=== PATIENT | female | born 1940 | race African-American/Black ===

== ENCOUNTER 2018-04-21 18:09 | Inpatient (IN) | payer MEDICARE ==
[2018-04-21 18:43] LABS: Hemoglobin 13.2 g/dL (12.0-16.0); Mean Corpuscular HGB CONC 32.5 g/dL (32.0-36.0); Mean Corpuscular Hemoglobin 37.5 pg (27.0-31.0); Mean Platelet Volume 6.8 fL (7.4-10.4); Platelet Count 266 thou/uL (130-400); RBC Distribution Width 14.6 % (11.5-14.5); Red Blood Cell (RBC) Count 3.52 mill/uL (4.20-5.40)
[2018-04-21 18:54] LABS: Acetaminophen Less than 6.0 mcg/mL (10.0-30.0); Alcohol Less than 10 mg/dL (Less than 10); Salicylate Less than 8.0 mg/dL (15.0-30.0)
[2018-04-21 18:55] LABS: ALT (SGPT) 32 U/L (8-55); AST (SGOT) 49 U/L (5-34); Albumin 4.1 g/dL (3.4-4.8); Alkaline Phosphatase 100 U/L (40-150); Anion Gap 20 mmol/L (10-20); BUN (Urea Nitrogen) 17 mg/dL (9.8-20.1); Bilirubin, Total 1.7 mg/dL (0.2-1.2); CK (CPK) 702 U/L (29-168); Calc. Creatinine Clearance 0 mL/min (70-130); Calcium 9.1 mg/dL (7.8-10.44); Carbon Dioxide 19 mmol/L (23-31); Chloride 103 mmol/L (98-107); Estimated GFR-MDRD 89; Globulin 2.8 g/dL (2.4-3.5); Glucose 120 mg/dL (83-110); Lipase 10 U/L (8-78); Potassium 4.2 mmol/L (3.5-5.1); Protein, Total 6.9 g/dL (6.0-8.3); Sodium 138 mmol/L (136-145)
[2018-04-21 18:58] LABS: Band 1 % (5-11); Lymphocytes 16 % (21-51); MDiff Complete? YES; Macrocytosis SLIGHT = 6-15 cells (100X) (0-5/hpf); Monocytes 3 % (0-10); Neutrophil 80 % (42-75); Nucleated RBC 2 % (0); PLT Morphology Comment Appears Adequate; White Blood Cell (WBC) Count 11.7 thou/uL (4.8-10.8)
[2018-04-21 18:59] LABS: Troponin I Less than 0.010 ng/mL (< 0.028)
[2018-04-21 19:05] LABS: CKMB 8.6 ng/mL (0-6.6)
[2018-04-21] MEDS ORDERED: Morphine 4 MG/ML VIAL ONE (19:14)
--- NOTE | 2018-04-21 19:16 | RAD ---
PORTABLE AP CHEST X-RAY: 04/21/2018 HISTORY: Altered mental status. Fall. COMPARISON: None available. FINDINGS: The cardiac silhouette and pulmonary vasculature are within normal limits. The lungs are hyperexpand ed but clear. Vascular calcification is seen in the thoracic aorta. The osseous structures are inta ct. IMPRESSION: No acute cardiopulmonary process. POS: [facility]
[2018-04-21] MEDS ORDERED: traMADol HCl 50 MG TAB PO PRN (19:19)
--- NOTE | 2018-04-21 19:20 | RAD ---
LEFT KNEE FOUR VIEWS: 04/21/2018 HISTORY: Trauma. The patient fell. FINDINGS: No fracture or dislocation is seen. There is suggestion of narrowing of the medial and lateral joint compartments, but the AP and oblique views were obtained with needing help in flexion, which limits adequate evaluation. No dislocation is seen. There is no evidence of a joint effusion. IMPRESSION: No acute fracture of the left knee. POS: [facility]
--- NOTE | 2018-04-21 19:21 | RAD ---
AP PELVIS: HISTORY: Fall last night. FINDINGS: The bones are demineralized. The pelvic ring is intact without evidence of fracture. The left hip h as somewhat abnormal configuration that would be very suspicious for a subcapital fracture of the hip . IMPRESSION: Findings very suspicious for a subcapital fracture of the left hip. POS: [facility]
--- NOTE | 2018-04-21 19:22 | RAD ---
LEFT HIP TWO VIEWS: 04/21/2018 HISTORY: Trauma. Fell. FINDINGS: There is a subcapital left femoral neck fracture visualized with mild impaction of the fracture fragm ents. There is no evidence of a dislocation. No other osseous abnormality. IMPRESSION: Subcapital left femoral neck fracture. POS: [facility]
[2018-04-21 19:26] LABS: PTT 29.6 SEC (22.9-36.1); Prothrombin Time 13.8 SEC (12.0-14.7)
--- NOTE | 2018-04-21 19:30 | CT ---
CT BRAIN PERFORMED WITHOUT CONTRAST ENHANCEMENT: HISTORY: Fall with head pain. FINDINGS: The ventricular and cisternal system show generalized atrophy. There are no signs of intracerebral h emorrhage or extraaxial fluid collection. The mastoid air cells are clear. There are some minimal m ucosal changes and perhaps some minimal fluid in the right maxillary sinus. IMPRESSION: No acute intracranial abnormalities. POS: [facility]
[2018-04-21] MEDS ORDERED: hydrALAZINE 20 MG/ML VIAL SLOW IVP PRN (20:26)
[2018-04-21] MEDS ORDERED: Dextrose 50% Abboject 50 ML SYRINGE SLOW IVP PRN (20:26)
[2018-04-21] MEDS ORDERED: Ondansetron HCl/PF 4 MG/2 ML Vial IVP PRN (20:26)
[2018-04-21] MEDS ORDERED: Dextrose 5% in Water 1,000 ML IV PRN (20:26)
[2018-04-21] MEDS: Famotidine/PF 20 mg/2ml Vial SLOW IVP SCH (23:04)
[2018-04-21] MEDS: Sodium Chloride 0.9% 1,000 ML IV SCH (23:04)
[2018-04-21] MEDS: Senokot S 8.6-50 MG TAB PO SCH (23:05)
[2018-04-21 23:23] LABS: Bilirubin Moderate (Negative); Blood, Urine Small (Negative); Clarity TURBID (Clear); Glucose, Urine (Dipstick) Negative (Negative); Leukocyte Negative (Negative); Nitrite Negative (Negative); Protein, Urine (Dipstick) Trace mg/dL (Neg-Trace); Specific Gravity, Urine 1.022 (1.002-1.036); Urobilinogen 0.2 mg/dL (0.2-1.0); pH, Urine 5.5 (5.0-9.0)
[2018-04-21 23:24] LABS: Bacteria/HPF None Seen HPF (None Seen); WBC/HPF 0-3 HPF (0-3)
[2018-04-21 23:25] LABS: Pathc Cast-AUWi Flag 3.77 (0-2.49)
[2018-04-21 23:32] LABS: Hyaline Casts/LPF 7-10 HYALINE CAST LPF (0-3 Hyaline)
[2018-04-21 23:35] LABS: Crystals/HPF 2+ AMORPH URATES HPF (Negative)
[2018-04-21] MEDS: traMADol HCl 50 MG TAB PO SCH (23:35)
[2018-04-21] MEDS: Ketorolac Tromethamine 30 MG/ML VIAL IVP SCH (23:37)
[2018-04-21] MEDS: Oxazepam 10 MG CAP PO SCH (23:49)
[2018-04-21] MEDS ORDERED: Acetaminophen 1,000 MG in Premix Bag 1 BAG IVPB SCH (23:59)
--- NOTE | 2018-04-22 00:33 | HP ---
DATE OF ADMISSION: 04/21/2018 ATTENDING PHYSICIAN: Dr. Jacobson. TRAUMA ACTIVATION: Not applicable. HISTORY OF PRESENT ILLNESS: Farzaneh Carranza is a 78-year-old female, who presented to [facility] status post unwitnessed fall with unknown circumstances and unknown downtime. Per patient, the last thing she remembers is having dinner and closing the windows in her house and then she woke up on the floor hours later. She remained there until her family came to find her approximately 3:30 this afternoon. She had bilateral hip pain, left greater than right, and was unable to ambulate. She was evaluated in the emergency room and found to have a left femoral neck fracture. Orthopedic Surgery was notified and Trauma Services was asked to admit. Upon my evaluation, the patient has a chief complaint of left lower extremity pain. Of note, the patient states specifically denied any recent changes to her health to include fevers, chills, nausea, vomiting, headache, dizziness, new unsteadiness, chest pain, orthopnea, lower extremity edema, palpitations. She has, however, been seeing her primary care provider for the last month or so for shortness of breath. The patient states this has remained stable and was attributed to her presumed chronic lung disease. 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 ALLERGIES: None. HOME MEDICATIONS: Include losartan 100 mg p.o. daily, raloxifene 60 mg p.o. daily, aspirin 81 mg p.o. daily, Bystolic 2.5 mg at bedtime, pravastatin 10 mg p.o. daily. PAST MEDICAL HISTORY: Significant for hypertension. PAST SURGICAL HISTORY: Hysterectomy. SOCIAL HISTORY: Patient lives alone. She ambulates independently. Endorses at least 2-3 drinks of wine and liquor daily. She is a current smoker, 1-pack per day x57 years. She denies illicit drug use. FAMILY HISTORY: Significant for father with prostate cancer. REVIEW OF SYSTEMS: Ten-point review of systems was performed and negative except as indicated in the HPI. PHYSICAL EXAMINATION: VITAL SIGNS: On evaluation, blood pressure 151/90, pulse 110, respirations 22, O2 sat 97% on room air, temperature 98.0, pain is 7/10. GENERAL: Elderly appearing female, in no acute distress, resting in bed. HEAD: Normocephalic, atraumatic. EYES: Pupils are PERRL. Extraocular movements are intact. NECK: Supple. Trachea is midline. CHEST: Atraumatic, nontender to palpation. Mildly increased work of breathing , symmetric rise. LUNGS: Sounds are diminished bilaterally with expiratory wheezing noted. CARDIOVASCULAR: Tachycardic, but no obvious murmurs, rubs or gallops. GASTROINTESTINAL: Abdomen is soft, nontender, nondistended. MUSCULOSKELETAL: She has tenderness to palpation of both hips. Bilateral upper extremities within normal limits. Pulses are 2+ bilaterally. She has no lower extremity edema. Left lower extremity is mildly shortened with limited range of motion secondary to pain. NEUROLOGIC: GCS is 15. No focal deficit is noted. LABORATORY FINDINGS: WBC 11.7, hemoglobin 13.2, hematocrit 40.6 with an elevated MCV and MCH, platelet count is 266. INR is 1.0. Sodium 138, potassium 4.2, chloride 103, carbon dioxide 19, BUN 17, creatinine 0.76, glucose 120, total bilirubin 1.7, AST 49, ALT 32, ammonia 33. CK 702, CK-MB 8.6. Troponin less than 0.010. BNP 122. Blood alcohol less than 10 and negative salicylates or acetaminophen. RADIOLOGIC FINDINGS: CT of the brain was negative for acute intracranial abnormality. X-ray of the pelvis demonstrated a left femoral neck fracture. X- ray of the left knee without fracture or dislocation. X-ray of the left hip redemonstrated the femoral neck fracture. Chest x-ray with hyperinflated lungs and very coarse interstitial markings as well as significant vascular calcifications, but was without acute traumatic injury or cardiopulmonary process. EKG with a sinus tachycardia, no evidence of ST elevation. ASSESSMENT: 1. Status post fall, unclear circumstances. 2. Left femoral neck fracture. 3. Acute traumatic pain. 4. Daily alcohol use. 5. Persistent shortness of breath in the setting of prolonged tobacco abuse history- likely undiagnosed chronic lung disease. PLAN: Admit to Trauma Services. Orthopedic Surgery will see and evaluate the patient with likely plan for operative intervention tomorrow. We will start Solu-Medrol. Medicine consult for possible syncopal workup. Admit to tele to observe for possible arrhythmia. Echocardiogram has been ordered. Perioperative pain management with p.o. and IV analgesics. Postoperative PT and OT. DVT and gastritis prophylaxis when appropriate. Plan for admission was discussed with patient and family who vocalized understanding. All questions were answered at the time of this dictation. I have discussed this patient's code status with her and she states that she is a DO NOT RESUSCITATE. Trauma attending has been notified of admission. CRISTIN
[2018-04-22] MEDS: Acetaminophen 1,000 MG in Premix Bag 1 BAG IVPB SCH ×4 (02:17→21:29)
[2018-04-22 05:30] LABS: Anion Gap 15 mmol/L (10-20); BUN (Urea Nitrogen) 20 mg/dL (9.8-20.1); Calc. Creatinine Clearance 42 mL/min (70-130); Calcium 8.4 mg/dL (7.8-10.44); Carbon Dioxide 19 mmol/L (23-31); Chloride 107 mmol/L (98-107); Estimated GFR-MDRD 85; Glucose 125 mg/dL (83-110); Magnesium 1.6 mg/dL (1.6-2.6); Phosphorus 3.7 mg/dL (2.3-4.7); Potassium 4.2 mmol/L (3.5-5.1); Sodium 137 mmol/L (136-145)
[2018-04-22] MEDS: Oxazepam 10 MG CAP PO SCH ×3 (05:38→21:29)
[2018-04-22] MEDS: traMADol HCl 50 MG TAB PO SCH ×3 (05:41→19:40)
[2018-04-22] MEDS: Ketorolac Tromethamine 30 MG/ML VIAL IVP SCH ×3 (05:44→18:15)
[2018-04-22 05:51] LABS: Band 2 % (5-11); Hemoglobin 11.2 g/dL (12.0-16.0); Hypochromia SLIGHT = 6-15 cells (100X) (0-5/hpf); Lymphocytes 3 % (21-51); MDiff Complete? YES; Mean Corpuscular HGB CONC 32.6 g/dL (32.0-36.0); Mean Corpuscular Hemoglobin 37.8 pg (27.0-31.0); Mean Platelet Volume 6.4 fL (7.4-10.4); Monocytes 1 % (0-10); Neutrophil 94 % (42-75); PLT Morphology Comment Appears Adequate; Platelet Count 185 thou/uL (130-400); RBC Distribution Width 14.4 % (11.5-14.5); Red Blood Cell (RBC) Count 2.95 mill/uL (4.20-5.40); White Blood Cell (WBC) Count 8.2 thou/uL (4.8-10.8)
--- NOTE | 2018-04-22 06:54 | CON ---
REASON FOR CONSULTATION: Medical clearance for surgery. CHIEF COMPLAINT: The patient coming in status post fall with left hip fracture. HISTORY OF PRESENT ILLNESS: This is a 78-year-old female with past medical history of hypertension, asthma, COPD, hyperlipidemia, presenting to our ED status post unwitnessed fall, mechanism of fall wa s unknown; however, patient was found to have left hip fracture based on imaging, so at this time, e has been called to provide medical clearance for the patient to undergo surgery. Per electronic me dical records, the patient has not been evaluated by melter caster in the past and due to patient's ag e, we will consider again melter caster to come and evaluate the patient. ALLERGIES: No known drug allergies. REVIEW OF SYSTEMS: Patient complained of some mild pain, otherwise as documented in the HPI. All ot her systems were reviewed and were negative. PAST MEDICAL HISTORY: Hypertension, asthma, COPD, hyperlipidemia, hysterectomy. PAST SURGICAL HISTORY: Hysterectomy. 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 Occasional drinker. Smokes a pack a day, has been smoking for 57 years. Denies illicit drug use. FAMILY HISTORY: Dad had prostate CA. PHYSICAL EXAMINATION: VITAL SIGNS: Blood pressure is 151/90, pulse 110, respiratory rate of 22, O2 sat of 97% on room air, temperature is 98. GENERAL: The patient is lying in bed comfortably, able to speak in full sentences, does not appear t o be in any distress. HEENT: Normocephalic, atraumatic. Pupils are equally round and reactive to light. Extraocular move ments are intact. No scleral icterus. CHEST: Atraumatic. LUNGS: Bilateral symmetric chest rise. Clear to auscultation bilaterally. No wheezing appreciated. CARDIOVASCULAR: Positive S1, S2. Patient is tachycardic. GASTROINTESTINAL: Soft, nontender, nondistended. MUSCULOSKELETAL: There is no hematoma noted at the left hip. EXTREMITIES: No edema noted at the lower extremity bilaterally. Patient has limited range of motion at the left lower leg due to pain; however, right lower leg, patient is able to move the leg without any difficulty. Upper extremity: 5/5 upper extremity strength. Good radial pulses. NEUROLOGIC: GCS of 15. No focal neurologic deficits noted. LABORATORY DATA: WBC 11.7, hemoglobin 13.2, hematocrit is 40, MCV of 115, RDW of 14. PT is 13.8, IN R 1.0, PTT 29.6. Sodium 138, potassium 4.2, chloride 103, bicarbonate is 19, anion gap of 20, BUN is 17, creatinine is 0.76, glucose 120. CK-MB 8.6, troponin less than 0.010. BNP is 122.9. Urinalysi s negative for leukoesterase and negative for nitrites. IMAGING: Pelvic x-ray showed subcapital fracture of the left hip. A knee x-ray negative, no acute f racture of the left knee. Hip x-ray showed subcapital left femoral neck fracture. ASSESSMENT AND PLAN: This is a 78-year-old female with hip fracture. We are being called to provide medical clearance. At this point, the patient has not been seen by melter caster in a while and base d on the patient's age of 78, will be very important for melter caster to examine the patient and give cardiac clearance. An echo has been ordered. We will follow up on echo results and we will get car diology's input on a surgical clearance. From a medical standpoint, the patient is medically optimiz ed at this time to be able to undergo surgery.
--- NOTE | 2018-04-22 07:17 | ADD-HP ---
ADDENDUM: This is an addendum to the H&P dictated by Kylie Jovel PA-C. For full details, please see her rep ort. In short, Ms. Carranza is a 78-year-old woman who fell at home. She is unsure exactly how she fell and does not remember the actual event, but was down in her home from about 9:00 p.m. until this afternoo n when a family member came to check on her. She had left hip and leg pain and was unable to stand o r get to a phone to call for help. She is unsure whether she was knocked out as she does not remembe r the event. PAST MEDICAL HISTORY: She has a past medical history of high blood pressure, high cholesterol, asthm a. PAST SURGICAL HISTORY: She has a surgical history of hysterectomy. SOCIAL HISTORY: She does drink daily and also smokes cigarettes. She lives by herself alone. Her h usband earlier this year. OUTPATIENT MEDICATIONS: Include losartan, raloxifene, aspirin, Bystolic, pravastatin. ALLERGIES: She has no known drug allergies. PHYSICAL EXAMINATION: A complete head to toe examination was performed personally by myself. The magnolia nichols felt that she might have some bruising on her cheek, but I was unable to appreciate this on exa m. Her midface is stable and her head is atraumatic. She has cool feet and no palpable pedal pulses . Does have popliteal pulses. Her left leg is elevated with the knees on pillows for comfort. IMAGING: Multiple plain films and head CT were obtained in the ER and these showed a left subcapital femoral neck fracture, but no other significant injuries. LABORATORY DATA: White count is 11.7. CK is mildly elevated at 702, BUN and creatinine are normal a t 17 and 0.76, bilirubin is mildly elevated at 1.7 and AST mildly elevated at 49. BNP is slightly hi gh at 122.9, CK-MB is elevated, but troponin is normal and TSH is normal. ASSESSMENT: Left subcapital femoral neck fracture. Orthopedics has been consulted and hopefully the patient and her family have made plans to make sure that she has around the clock supervision on dis charge from the hospital. I did suggest to her daughter who is at bedside that the patient might bijan efit from a short stay at a rehab unit given her history of falls and her general frailty and they ar e open to this option. She is receiving IV fluids, but she appears to have mild rhabdomyolysis and w e will monitor her urine output and renal function. No other injuries were identified.
--- NOTE | 2018-04-22 07:40 | CON ---
DATE OF CONSULTATION: 04/21/2018 HISTORY OF PRESENT ILLNESS: Ms. Carranza is a pleasant 78-year-old female status post fall from a ground height. She states last night. The patient walks around in her house, currently a household ambulator, does not walk outside less than 50 feet at a time, 7/10 pain. She states she has numbness, tingling in her feet. PAST MEDICAL HISTORY: Hypertension, high cholesterol, asthma, COPD. PAST SURGICAL HISTORY: Hysterectomy, three spontaneous vaginal deliveries. MEDICATIONS: Losartan, raloxifene, aspirin, Bystolic, pravastatin. ALLERGIES: No known drug allergies. SOCIAL HISTORY: She states she drinks 3-5 beers per day, 1 pack per day smoker. She lives at home. She is retired, previously worked in [employer]. She was at [place] alone. PHYSICAL EXAMINATION: VITAL SIGNS: Blood pressure 151/90, 110, respiratory rate 22, sats 99% on 2 liters, the patient has 98.8 temperature. GENERAL: Alert and oriented female, in no acute distress, resting comfortably in bed on oxygen. EXTREMITIES: The patient has shortened ER extremity with pain with ROM, NVID, no open wounds NEUROLOGY: Neurovascularly intact, brisk cap refill. SKIN: The patient has no open wounds on her hip. LABORATORY AND X-RAY FINDINGS: INR is 1, H&H 13 and 40. CK elevated. Radiographs showed left subcapital femoral neck fracture on femur and hip. IMPRESSION: Left subcapital femoral neck fracture. ASSESSMENT AND PLAN: The patient will be n.p.o. at midnight, Ancef and TXA on- call to the OR. The patient will undergo left hip hemiarthroplasty. I discussed with family the risks and benefits of surgery include pain, scar, bleeding, infection, damage to vital structures, decreased range of motion or strength, fracture above or below the implant, continued pain, need for revision to total hip. She understood the functionality the patient, she would likely best be a candidate for hemiarthroplasty. I discussed she has increased risk of mortality given her current medical condition. I discussed also that she has a risk of delirium tremens given her history of drinking. CRISTIN
[2018-04-22] MEDS ORDERED: CEFAZOLIN/Water 2 GM/20 ML SYRINGE SLOW IVP SCH ×2 (09:00→18:00)
[2018-04-22] MEDS ORDERED: Tranexamic Acid 1,000 MG in Sodium Chloride 0.9% 100 ML IVPB SCH (09:00)
[2018-04-22] MEDS: Famotidine/PF 20 mg/2ml Vial SLOW IVP SCH ×2 (09:07→21:15)
[2018-04-22] MEDS: Polyethylene Glycol 3350 17 GM Packet PO SCH (09:08)
[2018-04-22] MEDS: Senokot S 8.6-50 MG TAB PO SCH ×2 (09:08→21:29)
[2018-04-22] MEDS: Sodium Chloride 0.9% 1,000 ML IV SCH ×2 (10:25→21:14)
--- NOTE | 2018-04-22 11:28 | PRG-2 ---
DATE OF SERVICE: 04/22/2018 SUBJECTIVE: This is a 78-year-old female who presented to [facility] status post an unwitnessed fall with unknown circumstances and unknown downtime, who was found to have a left femoral neck fracture. The patient was admitted to telemetry for monitoring overnight with plans for possible surgery later this afternoon after undergoing medical clearance. She has remained hemodynamically stable and her pain has been well controlled. The patient has no complaints on exam this morning. OBJECTIVE: GENERAL: Elderly female, resting in bed, in no acute distress. VITAL SIGNS: Temperature 97.9 degrees Fahrenheit, pulse 84, respirations 16, O2 sat 98% on 2 liters nasal cannula, blood pressure 98/52. PULMONARY: Normal work of breathing with symmetric rise with significant improvement in expiratory wheezing compared to exam yesterday. CARDIOVASCULAR: Regular rate and rhythm with no obvious murmurs, rubs, or gallops. GASTROINTESTINAL: Abdomen is soft, nontender, nondistended. MUSCULOSKELETAL: The patient has tenderness to palpation of both hips and has full range of motion in bilateral upper extremity pulses are 2+ throughout. No signs of lower extremity edema, but left lower extremity is mildly shortened with limited range of motion secondary to pain from her acute fracture. NEUROLOGIC: Patient is alert and oriented x3 with no focal deficits noted. LABORATORY FINDINGS: Hemoglobin 11.2, hematocrit 34.3, MCV 116, MCH 37.8, platelet count 185. RADIOLOGIC FINDINGS: No new radiographic findings. ASSESSMENT AND PLAN: 1. Status post fall, unclear circumstances. 2. Left femoral neck fracture. 3. Acute traumatic pain. 4. History of daily alcohol use. 5. Persistent shortness of breath in the setting of prolonged tobacco abuse history suspicious for undiagnosed chronic obstructive pulmonary disease. PLAN: Pending medical clearance from Medicine team and Cardiology. The patient will likely go back for operative intervention this afternoon. We will continue IV Solu-Medrol for wheezing and shortness of breath as well as PRN and scheduled Duonebs. Echocardiogram pending for today in order to sejal patient medical clearance for surgery. We will continue perioperative pain management with p.o. and IV analgesics as needed. Postoperative PT and OT. We will begin DVT and gastrointestinal prophylaxis when appropriate. We will continue scheduled bowel regimen perioperatively and postoperatively. We will continue IV fluids normal saline at 80 mL an hour if the patient is n.p.o. pending possible operative intervention later this afternoon; however, will resume p.o. diet later today if the patient is not cleared in time to go back for surgery today. The patient has been discussed with trauma attending. CRISTIN
[2018-04-22] MEDS ORDERED: CEFAZOLIN/Water 2 GM/20 ML SYRINGE ONE (12:01)
[2018-04-22] MEDS ORDERED: Fentanyl 100 MCG/2 ML VIAL ONE (12:28)
[2018-04-22] MEDS ORDERED: Succinylcholine Chloride 20 MG/ML 10 ml SYRINGE FS ONE (12:56)
[2018-04-22] MEDS ORDERED: Ondansetron HCl/PF 4 MG/2 ML Vial ONE (12:56)
[2018-04-22] MEDS ORDERED: PROPOFOL 200 MG/20 ML VIAL ONE (12:56)
[2018-04-22] MEDS ORDERED: Glycopyrrolate 0.2 MG/ML 5 ML SYRINGE ONE (12:56)
[2018-04-22] MEDS ORDERED: PHENYLEPHRINE-NS 100 MCG/ML 10 ML SYRINGE ONE (12:56)
[2018-04-22] MEDS ORDERED: Lidocaine 1% PF 5 ML VIAL ONE (12:56)
[2018-04-22 13:30] VITALS: BMI 17.4
[2018-04-22] MEDS ORDERED: SUGAMMADEX SODIUM 200 MG/2 ML VIAL ONE (15:59)
[2018-04-22] MEDS ORDERED: Morphine Sulfate 2 MG/ML SYRINGE SLOW IVP PRN (17:04)
[2018-04-22] MEDS ORDERED: Promethazine HCl 25 MG/ML VIAL IM PRN (17:04)
[2018-04-22] MEDS ORDERED: Promethazine HCl 25 MG/ML VIAL SLOW IVP PRN (17:04)
[2018-04-22] MEDS ORDERED: Ondansetron HCl/PF 4 MG/2 ML Vial IVP PRN (17:04)
--- NOTE | 2018-04-22 19:01 | RAD ---
LEFT HIP TWO VIEWS: HISTORY: Status post surgery. Left hip fracture. COMPARISON: 04/21/2018 FINDINGS: Expected postoperative changes, compatible with a left hip arthroplasty. IMPRESSION: Left hip arthroplasty. Alignment is near anatomic. POS: [facility]
[2018-04-22] MEDS: CEFAZOLIN/Water 2 GM/20 ML SYRINGE SLOW IVP SCH (22:13)
[2018-04-23] MEDS: traMADol HCl 50 MG TAB PO SCH ×4 (01:00→18:36)
[2018-04-23] MEDS: Ketorolac Tromethamine 30 MG/ML VIAL IVP SCH ×2 (01:00→05:41)
--- NOTE | 2018-04-23 01:59 | OP ---
DATE OF SERVICE: 04/21/2018 PREOPERATIVE DIAGNOSIS: Left hip femoral neck fracture. POSTOPERATIVE DIAGNOSIS: Left hip femoral neck fracture. PROCEDURE PERFORMED: Left hemiarthroplasty. STAFF: Keo Meyers M.D. MAIL CARRIER AND CLERK: Lissa Rae PA-C. ANESTHESIA: Dr. Hinds, the patient received a general sedation. ESTIMATED BLOOD LOSS: 100 mL. TOURNIQUET TIME: None. IMPLANTS: A Proctor size 4 Accolade TMZF stem, -4 offset Unitrax sleeve and a 43 mm monopolar head. ANTIBIOTICS: Ancef 2 grams, TXA 1 gram. COMPLICATIONS: None. HISTORY OF PRESENT ILLNESS: Ms. Carranza is a 78-year-old female status post ground level fall. The patient has a history of smoking, alcoholism, and COPD. She walks about 40-50 feet a day. I discussed with the family the risks and benefits of left hip hemiarthroplasty. I discussed the risk and benefits of the surgery to include pain, scar, bleeding, infection, damage to vital structures, decreased range of motion or strength, fracture, need for further surgeries, loss of life or limb. I discussed the mortality especially with hip fractures. I discussed the patient's risk of delirium tremens postop. They understood all these risks and benefits and elected to proceed. PROCEDURE IN DETAIL: Timeout was performed to the patient's left extremity as the operative site based on sight, consents, and markings. After completion of timeout, the patient was placed in lateral position with all bony prominences well padded. A skin incision was made down to the lateral skin, down to the IT band and took down the gluteus medius down and exposed the minimus and took down the capsule and found the fracture. We cut the fracture to a half fingerbreadth a low neck cut. We excised the patient's femoral head, measured to a 44. We then broached up sequentially up to 4.0, felt to have firm fit of the four distally and proximally. I reduced the patient was based out to length , maybe slightly lengthen and overall had good alignment, good rotation, no impingement. We then removed and placed our final implants, closed the gluteus medius #2. We closed our IT band with #2 Quill, 0 Quill, 2-0 Quill, and glue. The patient will be admitted back to trauma. She will be weightbearing as tolerated. She received 24 hours antibiotics. She will follow up with her in- house in the a.m. The patient's outlook is guarded. CRISTIN
[2018-04-23] MEDS: Oxazepam 10 MG CAP PO SCH ×3 (05:41→20:01)
[2018-04-23] MEDS: CEFAZOLIN/Water 2 GM/20 ML SYRINGE SLOW IVP SCH ×2 (06:43→16:27)
[2018-04-23 07:45] LABS: #Basophils 0.2 thou/uL (0.0-0.2); #Lymphocytes 0.2 thou/uL (1.20-3.40); #Monocytes 0.9 thou/uL (0.11-0.59); #Neutrophils 12.2 thou/uL (1.40-6.50); %Basophils 1.7 % (0.0-1.0); %Eosinophils 0.3 % (0.0-10.0); %Lymphocytes 1.5 % (21.0-51.0); %Monocytes 6.7 % (0.0-10.0); %Neutrophils 89.8 % (42.0-75.0); Mean Corpuscular HGB CONC 32.1 g/dL (32.0-36.0); Mean Corpuscular Hemoglobin 38.3 pg (27.0-31.0); Mean Platelet Volume 6.6 fL (7.4-10.4); Platelet Count 197 thou/uL (130-400); RBC Distribution Width 14.3 % (11.5-14.5); Red Blood Cell (RBC) Count 2.62 mill/uL (4.20-5.40); White Blood Cell (WBC) Count 13.6 thou/uL (4.8-10.8)
[2018-04-23] MEDS ORDERED: methylPREDNISolone 4 mg Tablet PO SCH (07:45)
[2018-04-23] MEDS ORDERED: CONFIRM ALL DAY 1 DOSES ARE TIMED FOR DAY 1 FS SCH (08:15)
[2018-04-23] MEDS ORDERED: Prevnar 13-Val Conj/PF 0.5 ML SYRINGE IM ONE (09:00)
[2018-04-23] MEDS: Senokot S 8.6-50 MG TAB PO SCH ×2 (09:34→20:00)
[2018-04-23] MEDS: Ibuprofen 600 MG TAB PO SCH ×2 (09:34→18:01)
[2018-04-23] MEDS: Polyethylene Glycol 3350 17 GM Packet PO SCH (09:34)
[2018-04-23] MEDS: Aspirin 81 mg Enteric Coated Tablet PO SCH ×2 (09:34→20:00)
[2018-04-23] MEDS: Acetaminophen 500 MG TAB PO SCH ×3 (09:58→20:00)
[2018-04-23] MEDS: methylPREDNISolone 4 mg Tablet PO SCH ×3 (12:32→20:01)
--- NOTE | 2018-04-23 13:48 | PRG-2 ---
DATE OF SERVICE: 04/23/2018 SUBJECTIVE: This is a 78-year-old -Burm[place] female who presented to [facility] status post an unwitnessed fall with unknown circumstances, an unknown downtime, who was found to have a left femoral neck fracture. The patient is now postop day #1 status post left hip hemiarthroplasty with Dr. Meyers yesterday afternoon. Patient has remained hemodynamically stable overnight and her pain has been well controlled. She was receiving a DuoNeb treatment at time of exam; however, patient had no complaints. OBJECTIVE: GENERAL: Elderly -Burmese female resting in bed, receiving a DuoNeb treatment with respiratory therapy at the time of the exam. No acute distress. VITAL SIGNS: Temperature 98.5 degrees Fahrenheit, pulse 98, respirations 16, O2 saturation 96% on 2 liters nasal cannula at baseline (patient was on 8 liters via nasal cannula), blood pressure 113/76. PULMONARY: Normal work of breathing with symmetric rise. No significant expiratory wheezing noted on exam. CARDIOVASCULAR: Regular rate and rhythm with no obvious murmurs, rubs, or gallops. ABDOMEN: Soft, nontender, nondistended. MUSCULOSKELETAL: The patient has improved range of motion in both hips and full range of motion in bilateral upper extremities. Pulses are 2+ throughout. No signs of lower extremity edema. Patient has full range of motion in bilateral feet. NEUROLOGIC: Patient is alert and oriented x3 with no focal deficits noted. LABORATORY DATA: White blood count 13.6, hemoglobin 10, hematocrit 31.2, MCV 119, MCH 38.3, and platelets 197. RADIOLOGIC FINDINGS: Left hip x-ray significant for a left hip arthroplasty with alignment in her anatomic. ASSESSMENT: 1. Status post fall, unclear circumstances. 2. Left femoral neck fracture, postop day #1 status post repair. 3. Acute traumatic pain. 4. History of daily alcohol use. 5. Persistent shortness of breath in the setting of prolonged tobacco abuse history, suspicious for undiagnosed chronic obstructive pulmonary disease. PLAN: We will discontinue IV Solu-Medrol and start on p.o. steroid Dosepak and continue with p.r.n. and scheduled DuoNebs for shortness of breath. Continue with usual postoperative management including p.o. and IV analgesics as needed, postoperative PT and OT, and GI and DVT prophylaxis. Continue scheduled bowel regimen. Encourage ambulation today. Discontinue Cheatham catheter and IV fluids today and encourage increased p.o. intake as tolerated. Case management and rehab consults today in order to patient with placement in inpatient rehab following discharge. Patient has been discussed with trauma attending. CRISTIN
--- NOTE | 2018-04-23 14:30 | PQF ---
CLINICAL DOCUMENTATION IMPROVEMENT CLARIFICATION FORM: ICD-10 Updated PLEASE DO AN ADDENDUM TO THE PROGRESS NOTE WITH ANY DOCUMENTATION UPDATES OR ADDITIONS AND CARRY THROUGH TO DC SUMMARY. THANK YOU. Date: 04/23/18; 04/24/18 ATTN: Dr. Stafford Please exercise your independent, professional judgment in responding to the clarification form. Clinical indicators are provided on the bottom of this form for your review Please check appropriate box(s): [ ] Protein Calorie Malnutrition: [ ] Mild [ ] Moderate [ ] Severe [ ] Other Malnutrition [ ] Underweight without malnutrition [ ] Cachexia [ ] Other diagnosis [ x ] Unable to determine In addition, please specify: Present on Admission (POA): [ ] Yes [ ] No [ x ] Unable to determine CLINICAL INDICATORS - SIGNS / SYMPTOMS / LABS DATA SYSTEMS MANAGER ASSESSMENT 04/22: BMI 17.4 PT OBSERVED WITH LITTLE VISCERAL FAT W/ VISIBLE RIBS & MODERATE TEMPORAL MUSCLE WASTING NUTRITION DX: MALNUTRITION R/T COPD W/ RECENT OF SPOUSE REPORT OF DECREASED PO INTAKE X3-4 MONTHS ACCOUNT OFFICER INDICATIVE OF MODERATE MALNUTRITION IN THE SETTING OF CHRONIC DISEASE W/ SOCIAL CIRCUMSTANCES RISKS: H&P 04/21: HYPERTENSION. DAILY ALCOHOL USE. L SUBCAPITAL FEMORAL NECK FRACTURE. MILD RHABDOMYOLYSIS CONSULT: HX ASTHMA, COPD. TREATMENT: DATA SYSTEMS MANAGER ASSESSMENT 04/22: TRIGGERED FOR A LOW BMI Moderate Malnutrition (in acute illness) Energy Intake: <75% of estimated energy requirement for > 7 days Weight Loss: 1-2%/1 week; 5%/ 1 month; 7.5%/3 months Other: mild body fat loss; mild muscle mass loss; mild fluid accumulation; Severe Malnutrition (in acute illness) Energy Intake: < 50% of estimated energy requirement for > 5 days Weight Loss: >1-2%/1 week; >5%/1 month; >7.5%/3 months Other: moderate body fat loss; moderate muscle mass loss; moderate- severe fluid accumulation; measurably reduced mirror maker strength Moderate Malnutrition (in chronic illness) Energy Intake: <75% of estimated energy requirement for >1 month Weight Loss: 5%/1 month; 7.5%/3 months; 10%/6 months; 20%/1 year Other: mild body fat loss; mild muscle mass loss; mild fluid accumulation Severe Malnutrition (in chronic illness) Energy Intake: <75% of estimated energy requirement for >1 month Weight Loss: >5%/1 month; >7.5%/3 months; >10%/6 months; >20%/1 year Other: severe body fat loss; severe muscle mass loss; severe fluid accumulation; measurably reduced mirror maker strength Thank you, Michelle (This form is maintained as a part of the permanent medical record) 2015 [employer], [place]. All Rights Reserved Michelle Calle RN, BSN [email or web address] Office: [phone] [facility] CENTERRuy
--- NOTE | 2018-04-23 15:55 | PDOC.PN ---
- Subjective Encounter Start Date: 04/23/18 Encounter Start Time: 15:45 Subjective: f/u s/p L femoral neck fx and THR on 04/22/18. Remains stable postop -: and tolerating po intake. O2 currently 2L/min NC - Objective Resuscitation Status: Resuscitation Status DNR:Do Not Resuscitate MAR Reviewed: Yes Vital Signs & Weight: Vital Signs (12 hours) Temp Pulse Resp BP BP BP BP 04/23/18 12:29 92 16 04/23/18 12:00 98.1 F 92 16 97/63 04/23/18 09:58 115/66 116/77 04/23/18 09:30 04/23/18 07:10 98.1 F 96 18 104/65 04/23/18 06:40 04/23/18 06:33 98 16 04/23/18 04:00 98.5 F 94 16 113/76 Pulse Ox 04/23/18 12:29 98 04/23/18 12:00 100 04/23/18 09:58 04/23/18 09:30 96 04/23/18 07:10 98 04/23/18 06:40 96 04/23/18 06:33 96 04/23/18 04:00 98 Weight Admit Weight 99 lb Weight 98 lb 3.2 oz I&O: 04/22/18 04/23/18 04/24/18 06:59 06:59 06:59 Intake Total 990 1343.0 Output Total 125 350 200 Balance 865 993.0 -200 Result Diagrams: 04/23/18 07:20 04/22/18 04:28 Additional Labs: Microbiology 04/21/18 18:56 Venous blood - Right Hand Blood Culture - Preliminary NO GROWTH AT 48 HOURS 04/21/18 18:37 Venous blood - Left Hand Blood Culture - Preliminary NO GROWTH AT 48 HOURS Laboratory Tests 04/21/18 04/21/18 04/22/18 18:14 18:38 04:28 WBC 8.2 Hgb 11.2 L Ammonia 33 TSH 3rd Generation 1.4626 Radiology Reviewed by me: Yes (2D echo - EF 55%, diast dysfxn, mild-mod TR) Phys Exam - Physical Examination Constitutional: NAD HEENT: PERRLA, sclera anicteric, oral pharynx no lesions Neck: no nodes, no JVD, supple, full ROM Respiratory: no wheezing, no rales, no rhonchi, clear to auscultation bilateral S1, S2 Cardiovascular: RRR, no significant murmur, no rub, gallop Gastrointestinal: soft, non-tender, no distention, positive bowel sounds L hip with surgical dressing in place, + edema Musculoskeletal: pulses present Neurological: moves all 4 limbs Psychiatric: normal affect Skin: no rash, normal turgor, cap refill <2 seconds Dx/Plan (1) COPD (chronic obstructive pulmonary disease) Status: Chronic Comment: Continue Duonebs, Methylprednisolone, O2 support (2) Fall Code(s): W19.XXXA - UNSPECIFIED FALL, INITIAL ENCOUNTER Status: Acute Comment: PT evaluation, likely will need SNF/inpt rehab (3) Closed left femoral fracture Code(s): S72.92XA - UNSP FRACTURE OF LEFT FEMUR, INIT ENCNTR FOR CLOSED FRACTURE Status: Acute Comment: s/p L THR POD #1, pain control, DVT ppx (4) HTN (hypertension) Code(s): I10 - ESSENTIAL (PRIMARY) HYPERTENSION Status: Chronic Qualifiers: Hypertension type: essential hypertension Qualified Code(s): I10 - Essential (primary) hypertension Comment: Continue home BP regimen and monitor BP trend - Plan PT/OT, social science instructor, respiratory therapy, DVT proph w/SCDs Stable currently -: Pulmonary supportive mgmt -: Wean steroids -: PT for evaluation -: AM lab: BMP, CBC * .
[2018-04-24] MEDS: traMADol HCl 50 MG TAB PO SCH ×4 (00:11→17:53)
[2018-04-24] MEDS: Ibuprofen 600 MG TAB PO SCH ×3 (01:13→17:53)
[2018-04-24] MEDS: Acetaminophen 500 MG TAB PO SCH ×4 (03:28→21:48)
[2018-04-24 05:26] LABS: Anion Gap 11 mmol/L (10-20); BUN (Urea Nitrogen) 29 mg/dL (9.8-20.1); Calc. Creatinine Clearance 22 mL/min (70-130); Calcium 8.8 mg/dL (7.8-10.44); Carbon Dioxide 20 mmol/L (23-31); Chloride 110 mmol/L (98-107); Estimated GFR-MDRD 40; Glucose 116 mg/dL (83-110); Magnesium 1.7 mg/dL (1.6-2.6); Phosphorus 3.9 mg/dL (2.3-4.7); Potassium 4.4 mmol/L (3.5-5.1); Sodium 137 mmol/L (136-145)
[2018-04-24 05:37] LABS: Hemoglobin 10.2 g/dL (12.0-16.0); Hypochromia SLIGHT = 6-15 cells (100X) (0-5/hpf); Lymphocytes 2 % (21-51); MDiff Complete? YES; Mean Corpuscular HGB CONC 32.6 g/dL (32.0-36.0); Mean Corpuscular Hemoglobin 39.3 pg (27.0-31.0); Mean Platelet Volume 6.7 fL (7.4-10.4); Monocytes 5 % (0-10); Neutrophil 93 % (42-75); PLT Morphology Comment Appears Adequate; Platelet Count 185 thou/uL (130-400); RBC Distribution Width 14.6 % (11.5-14.5); Red Blood Cell (RBC) Count 2.61 mill/uL (4.20-5.40); White Blood Cell (WBC) Count 10.2 thou/uL (4.8-10.8)
[2018-04-24] MEDS: Oxazepam 10 MG CAP PO SCH ×3 (06:00→21:55)
[2018-04-24] MEDS: Sodium Chloride 0.9% 500 ML IV SCH ×2 (08:38→09:02)
[2018-04-24] MEDS: Senokot S 8.6-50 MG TAB PO SCH ×2 (08:41→21:50)
[2018-04-24] MEDS: Aspirin 81 mg Enteric Coated Tablet PO SCH ×2 (08:41→21:48)
[2018-04-24] MEDS: Polyethylene Glycol 3350 17 GM Packet PO SCH (08:41)
[2018-04-24] MEDS: methylPREDNISolone 4 mg Tablet PO SCH ×3 (08:45→17:55)
[2018-04-24] MEDS ORDERED: Magnesium 2 GM/NS 0.9% 100 ML 2 GM in Premix Bag 1 BAG IVPB SCH (11:45)
--- NOTE | 2018-04-24 12:21 | PRG-2 ---
DATE OF SERVICE: 04/24/2018 SUBJECTIVE: This is a 78-year-old -Turkmen female, who presented to [facility] status post an unwitnessed fall with unknown circumstances and unknown downtime, who was found to have a left femoral neck fracture on x-ray. The patient is now postop day #2 status post left hip hemiarthroplasty with Dr. Meyers. Patient's heart rate increased to a rate of 106 overnight and she is still requiring 2 liters nasal cannula to maintain sats greater than 92%. The patient had no complaints this morning and daughter reports she did well working with physical therapy yesterday. Patient is passing gas but has yet to have a bowel movement. Had poor p.o. intake yesterday secondary to decreased appetite. Denies any nausea or vomiting. OBJECTIVE: GENERAL: Elderly -Turkmen female resting in bed in no acute distress. VITAL SIGNS: Temperature 98.6 degrees Fahrenheit, pulse 100, respirations 18, and O2 sats 99% on 2 liters nasal cannula, blood pressure 121/73. PULMONARY: Normal work of breathing with symmetric rise. No significant expiratory wheezing noted on exam. CARDIOVASCULAR: Regular rate and rhythm with no obvious murmurs, rubs or gallops. ABDOMEN: Soft, nontender, nondistended. MUSCULOSKELETAL: The patient has improved range of motion in both hips and full range of motion of bilateral upper extremities. No signs of lower extremity edema. Full range of motion in both feet. NEUROLOGIC: Patient is alert and oriented to person. No focal deficits noted. Answering questions appropriately, just not necessarily with the correct answer at all times. LABORATORY DATA: Sodium 137, potassium 4.4, chloride 110, bicarbonate 20, BUN 29, creatinine 1.53, blood glucose 116, calcium 8.8, phosphorus 3.9, magnesium 1.7. RADIOLOGIC FINDINGS: No new radiologic images for review. ASSESSMENT AND PLAN: 1. Status post fall, unclear circumstances. 2. Left femoral neck fracture, postop day #2, status post repair. 3. Acute traumatic pain. 4. History of daily alcohol use. 5. Persistent shortness of breath in the setting of prolonged tobacco abuse history suspicious for undiagnosed chronic obstructive pulmonary disease. 6. Hypertension. PLAN: We will continue p.o. steroid Dosepak as well as p.r.n. scheduled DuoNebs. We will attempt to wean from nasal cannula as tolerated by the patient while maintaining O2 sats greater than 92%. We will continue with usual postoperative management including p.o. Tylenol and ibuprofen only. Discontinued IV ketorolac yesterday. Likely what contributed to the patient's slight HAZEL seen this morning. We will continue with a scheduled bowel regimen with the addition of lactulose this morning. This patient has yet to have a bowel movement. We will encourage ambulation today and we will continue working with physical therapy. We will give a half liter bolus of NS to address the patient's acute kidney injury. Case management on board and working towards rehab placement. Patient has been discussed with the trauma attending. CRISTIN
--- NOTE | 2018-04-24 16:38 | PDOC.PN ---
- Subjective Encounter Start Date: 04/24/18 Encounter Start Time: 16:35 Subjective: f/u s/p L NICKIE after fall and fx POD #2. Some pain with movement -: but overall doing ok. - Objective Resuscitation Status: Resuscitation Status DNR:Do Not Resuscitate MAR Reviewed: Yes Vital Signs & Weight: Vital Signs (12 hours) Temp Pulse Resp BP Pulse Ox 04/24/18 16:00 97.9 F 109 H 20 99/47 L 94 L 04/24/18 11:56 97.6 F 99 16 111/71 98 04/24/18 11:29 95 16 100 04/24/18 08:41 98.0 F 95 14 111/72 100 04/24/18 08:40 100 04/24/18 08:00 98.0 F 95 14 111/72 100 04/24/18 07:22 101 H 18 98 Weight Admit Weight 99 lb Weight 98 lb 3.2 oz I&O: 04/23/18 04/24/18 04/25/18 06:59 06:59 06:59 Intake Total 1343.0 440 Output Total 350 200 Balance 993.0 240 Result Diagrams: 04/24/18 04:42 04/24/18 04:42 Additional Labs: Microbiology 04/21/18 18:56 Venous blood - Right Hand Blood Culture - Preliminary NO GROWTH AT 48 HOURS 04/21/18 18:37 Venous blood - Left Hand Blood Culture - Preliminary NO GROWTH AT 48 HOURS Laboratory Tests 04/21/18 04/21/18 04/22/18 18:14 18:38 04:28 WBC Hgb Creatinine 0.79 Magnesium 1.6 Ammonia 33 TSH 3rd Generation 1.4626 04/22/18 04/23/18 04/24/18 04:28 07:20 04:42 WBC 8.2 13.6 H Hgb 11.2 L Creatinine Magnesium 1.7 Ammonia TSH 3rd Generation Phys Exam - Physical Examination Constitutional: NAD HEENT: PERRLA, sclera anicteric, oral pharynx no lesions Neck: no nodes, no JVD, supple, full ROM S1, S2 Cardiovascular: RRR, no significant murmur, no rub, gallop Gastrointestinal: soft, non-tender, no distention, positive bowel sounds L hip with edema and surgical dressing in place Musculoskeletal: pulses present Neurological: normal sensation, moves all 4 limbs Skin: normal turgor, cap refill <2 seconds Dx/Plan (1) HAZEL (acute kidney injury) Code(s): N17.9 - ACUTE KIDNEY FAILURE, UNSPECIFIED Status: Acute Comment: Mild HAZEL likely due to volume depletion, IVF's given today, encourage increased free-H2O intake, avoid nephrotoxic meds and limit contrast exposure (2) COPD (chronic obstructive pulmonary disease) Status: Chronic Comment: Continue Duonebs, Methylprednisolone, O2 support prn (3) Fall Code(s): W19.XXXA - UNSPECIFIED FALL, INITIAL ENCOUNTER Status: Acute Comment: PT evaluation, likely will need SNF/inpt rehab (4) Closed left femoral fracture Code(s): S72.92XA - UNSP FRACTURE OF LEFT FEMUR, INIT ENCNTR FOR CLOSED FRACTURE Status: Acute Comment: s/p L THR POD #2, pain control, DVT ppx (5) HTN (hypertension) Code(s): I10 - ESSENTIAL (PRIMARY) HYPERTENSION Status: Chronic Qualifiers: Hypertension type: essential hypertension Qualified Code(s): I10 - Essential (primary) hypertension Comment: Continue home BP regimen and monitor BP trend - Plan PT/OT, marriage and family social worker, respiratory therapy, DVT proph w/SCDs stable overall -: continue general pulm support -: Wean Methylprednisolone -: Increase free-H2O intake -: AM lab: BMP * SNF options pending
[2018-04-24] MEDS ORDERED: methylPREDNISolone 4 mg Tablet PO SCH (21:00)
[2018-04-25] MEDS: traMADol HCl 50 MG TAB PO SCH ×4 (00:34→17:49)
[2018-04-25] MEDS: Ibuprofen 600 MG TAB PO SCH ×3 (01:47→17:49)
[2018-04-25] MEDS: Acetaminophen 500 MG TAB PO SCH ×4 (02:10→21:04)
[2018-04-25] MEDS: Oxazepam 10 MG CAP PO SCH ×3 (04:42→16:50)
[2018-04-25 06:21] LABS: Anion Gap 10 mmol/L (10-20); BUN (Urea Nitrogen) 30 mg/dL (9.8-20.1); Calc. Creatinine Clearance 39 mL/min (70-130); Calcium 9.1 mg/dL (7.8-10.44); Carbon Dioxide 22 mmol/L (23-31); Chloride 113 mmol/L (98-107); Estimated GFR-MDRD 77; Glucose 104 mg/dL (83-110); Magnesium 2.5 mg/dL (1.6-2.6); Phosphorus 2.6 mg/dL (2.3-4.7); Potassium 4.4 mmol/L (3.5-5.1); Sodium 141 mmol/L (136-145)
[2018-04-25 06:56] LABS: Hemoglobin 10.1 g/dL (12.0-16.0); Mean Corpuscular HGB CONC 31.7 g/dL (32.0-36.0); Mean Corpuscular Hemoglobin 38.4 pg (27.0-31.0); Mean Platelet Volume 6.6 fL (7.4-10.4); Platelet Count 177 thou/uL (130-400); RBC Distribution Width 14.6 % (11.5-14.5); Red Blood Cell (RBC) Count 2.64 mill/uL (4.20-5.40); White Blood Cell (WBC) Count 8.7 thou/uL (4.8-10.8)
[2018-04-25 07:46] LABS: Band 3 % (5-11); Lymphocytes 11 % (21-51); MDiff Complete? YES; Monocytes 2 % (0-10); Neutrophil 84 % (42-75); Polychromasia SLIGHT = 2-3 cells (100X) (0-2/hpf)
[2018-04-25] MEDS: methylPREDNISolone 4 mg Tablet PO SCH ×4 (08:48→21:05)
[2018-04-25] MEDS: Folic Acid 1 MG TAB PO SCH (08:48)
[2018-04-25] MEDS: Senokot S 8.6-50 MG TAB PO SCH ×2 (08:48→21:05)
[2018-04-25] MEDS: Aspirin 81 mg Enteric Coated Tablet PO SCH ×2 (08:48→21:04)
[2018-04-25] MEDS: Polyethylene Glycol 3350 17 GM Packet PO SCH (08:49)
[2018-04-25] MEDS ORDERED: Magnesium Citrate 300 ML BOT PO SCH (09:30)
--- NOTE | 2018-04-25 12:00 | RAD ---
PORTABLE CHEST: 04/25/2018 PROVIDED CLINICAL HISTORY: Hypoxia. COMPARISON: 04/21/2018 FINDINGS: The cardiac and mediastinal silhouette are unchanged in appearance. Vascular calcification involves the aortic arch. Emphysematous changes are redemonstrated. Blunting of the right costophrenic angle is now present, suggesting right pleural effusion. No evidence for pneumothorax or focal consolidat ion. IMPRESSION: Development of right pleural effusion. POS: REMBERTO
[2018-04-25 12:22] LABS: Anion Gap 9 mmol/L (10-20); BUN (Urea Nitrogen) 29 mg/dL (9.8-20.1); Calc. Creatinine Clearance 41 mL/min (70-130); Calcium 9.3 mg/dL (7.8-10.44); Carbon Dioxide 25 mmol/L (23-31); Chloride 112 mmol/L (98-107); Estimated GFR-MDRD 83; Glucose 133 mg/dL (83-110); Potassium 4.3 mmol/L (3.5-5.1); Sodium 142 mmol/L (136-145)
[2018-04-25 15:05] LABS: Actual Bicarbonate (HCO3a) 26.5 mEq/L (22-28); Base Excess (BEa) -0.2 mEq/L (-2.0 to +3.0); CO2 Tension 53.1 mmHg (35.0-45.0); Calcium, Ionized 1.32 mmol/L (1.12-1.30); Carboxyhemoglobin (COHb) 1.5 gm% (0.0-3.0); Hemoglobin (Hb) 10.6 g/dL (12.0-16.0); O2 Tension (PaO2) 75.6 mmHg (> 70.0); Potassium - ABG Lab 3.96 mmol/L (3.70-5.30); pH, Arterial 7.32 (7.35-7.45)
[2018-04-25 15:06] LABS: Puncture Site RBA
[2018-04-25] MEDS ORDERED: Furosemide 40 MG/4 ML VIAL ONE (17:06)
[2018-04-25] MEDS ORDERED: Furosemide 40 MG/4 ML VIAL SLOW IVP SCH (17:15)
[2018-04-25] MEDS: Budesonide 0.5 MG/2 ML NEB INH SCH (18:25)
[2018-04-26] MEDS: traMADol HCl 50 MG TAB PO SCH ×4 (00:03→17:21)
[2018-04-26] MEDS: Ibuprofen 600 MG TAB PO SCH (00:03)
[2018-04-26] MEDS: Oxazepam 10 MG CAP PO SCH (03:16)
[2018-04-26] MEDS: Acetaminophen 500 MG TAB PO SCH ×4 (03:16→21:29)
[2018-04-26 03:57] LABS: Actual Bicarbonate (HCO3v) 33 mEq/L (22-28); Calcium, Ionized 1.17 mmol/L (1.16-1.32); Chloride (ABG LAB) 107 mmol/L (98-106); Hemoglobin (Hb) 10.8 g/dL (11.7-16.1); Potassium - ABG Lab 3.42 mmol/L (3.70-5.30); Sodium 143.8 mmol/L (133-146); pH (venous) 7.44 (7.32-7.43)
[2018-04-26 05:15] LABS: Anion Gap 8 mmol/L (10-20); BUN (Urea Nitrogen) 21 mg/dL (9.8-20.1); Calc. Creatinine Clearance 52 mL/min (70-130); Carbon Dioxide 33 mmol/L (23-31); Chloride 107 mmol/L (98-107); Estimated GFR-MDRD Greater than 90; Glucose 103 mg/dL (83-110); Magnesium 1.8 mg/dL (1.6-2.6); Potassium 3.4 mmol/L (3.5-5.1); Sodium 145 mmol/L (136-145)
[2018-04-26] MEDS: Budesonide 0.5 MG/2 ML NEB INH SCH ×2 (05:53→20:06)
[2018-04-26 06:06] LABS: Band 1 % (5-11); Hemoglobin 10.1 g/dL (12.0-16.0); Lymphocytes 14 % (21-51); MDiff Complete? YES; Macrocytosis SLIGHT = 6-15 cells (100X) (0-5/hpf); Mean Corpuscular HGB CONC 32.5 g/dL (32.0-36.0); Mean Corpuscular Hemoglobin 38.7 pg (27.0-31.0); Mean Platelet Volume 6.2 fL (7.4-10.4); Monocytes 9 % (0-10); Neutrophil 76 % (42-75); PLT Morphology Comment Appears Adequate; Platelet Count 189 thou/uL (130-400); RBC Distribution Width 14.5 % (11.5-14.5); Red Blood Cell (RBC) Count 2.62 mill/uL (4.20-5.40); Target Cells SLIGHT = 2-5 cells (100X) (0-1/hpf); White Blood Cell (WBC) Count 8.6 thou/uL (4.8-10.8)
--- NOTE | 2018-04-26 08:17 | PRG ---
DATE OF SERVICE: 04/25/[address] Simone Foster. SUBJECTIVE: Ms. Carranza is postop day 3 status post open reduction internal fixation left femoral neck with hemiarthroplasty with Dr. Meyers. The patient is in the surgical shelton. She was noted to have somewhat waxing and waning mental status, does not want to participate well and appears generally weak. The patient seems to be in slight respiratory distress, mild tachycardia, is now requiring 1 liter oxygen nasal cannula today. Chest x-ray new demonstrates a right pleural effusion. Echocardiogram reviewed, shows an EF of 55%, no diastolic dysfunction is record and no pericardial effusion. The patient has a 10-pound weight gain since arrival. On arrival, the patient does not complain of pain, but she seems somewhat withdrawn and in slight respiratory distress with accessory muscle usage. OBJECTIVE DATA: VITAL SIGNS: Blood pressure 127/74, heart rate is 108, respiratory rate 20, she is 96% on 1 liter nasal cannula and temperature is 97.7. GENERAL: A 78-year-old female sitting up in the chair, slight respiratory distress. HEENT: Normocephalic, atraumatic. Does have some JVD appreciated. NECK: Trachea is midline. RESPIRATORY: Equal rise and fall. Bilateral breath sounds are equal. Low air movement. Low lung volumes. Diminished bibasilar with trace crackles and expiratory wheezes appreciated. CARDIOVASCULAR: Tachycardia, regular rhythm. No edema is appreciated and strong pulses in all extremities. ABDOMEN: Soft and nontender. The patient has some pain to the left hip. Dressing dry and in place. PSYCHIATRIC: Withdrawn. SKIN: Normal for ethnicity, dry and warm. LABORATORY DATA: For today, white blood cell count 8.7, hemoglobin and hematocrit 10.1 and 31.9 respectively, platelets are 177,000. Chemistry shows a sodium of 142, potassium is 4.3, chloride is 112, CO2 is 25, BUN is 29 and creatinine 0.81, which has improved from yesterday of 1.53 after fluid boluses. Glucose of 133 and a BNP of 660. ASSESSMENT: 1. Status post fall and left arthroplasty, postop day number 3. 2. Acute traumatic pain. 3. Daily alcohol use. 4. Chronic obstructive pulmonary disease with acute exacerbation. 5. Concern for volume overload. 6. Concern for acute respiratory failure. 7. Altered mental status. CT head was negative for acute etiology yesterday. PLAN: 1. Continue with pain control as tolerated. 2. Speech therapy has evaluated, not swallowing well. Concern for hypercapnic narcosis. 3. Obtain ABG. Will likely need BiPAP 4. Likely will need diuresis. 5. Increase DuoNeb q.4. 6. Budesonide 0.5 mg b.i.d. 7. Continue steroids. Okay with oral for now. May need IV. 8. Reduce serax to b.i.d. dosing. 9. Oxygen to maintain SpO2 greater than 92%. 10. I have coordinated care with RT and a bedside RN. 11. Check BNP. 12. Morning labs. 13. Diet: N.p.o. except for meds tonight per speech therapy evaluation. They will reassess tomorrow. 14. Activity: Up with assistance only. 15. DNR. 16. Access: Peripheral IVs. Can place Cheatham catheter for retention, multiple times requiring in and out. DISPOSITION: Surgical shelton will keep a close eye. May need transfer to IMCU if does not improve respiratory belcher. There is no family at the bedside to update. I have coordinated care with the surgical service. I reviewed the notes from other services and the patient was seen with Dr. Foster. CRISTIN
[2018-04-26] MEDS: methylPREDNISolone 4 mg Tablet PO SCH ×3 (08:31→17:21)
--- NOTE | 2018-04-26 09:46 | PQF ---
CLINICAL DOCUMENTATION IMPROVEMENT CLARIFICATION FORM: ICD-10 Updated PLEASE DO AN ADDENDUM TO THE PROGRESS NOTE WITH ANY DOCUMENTATION UPDATES OR ADDITIONS AND CARRY THROUGH TO DC SUMMARY. THANK YOU. DATE: 04/26/18 ATTN: Dr. Foster Please exercise your independent, professional judgment in responding to the clarification form. Clinical indicators are provided on the bottom of this form for your review Please check appropriate box(s): [ ] Acute Respiratory Failure: [ ] with Hypoxia [ ] with Hypercapnia [ x ] Acute On Chronic Respiratory Failure: [ x] with Hypoxia [ ] with Hypercapnia [ ] Acute Respiratory Failure due to: [ ] Chronic Respiratory Failure only [ ] with Hypoxia [ ] with Hypercapnia [ ] Other diagnosis [ ] Unable to determine In addition, please specify: Present on Admission (POA): [ x ] Yes [ ] No [ ] Unable to determine For continuity of documentation, please document condition throughout progress notes and discharge summary. Thank You. CLINICAL INDICATORS - SIGNS / SYMPTOMS / LABS NURSING NOTE 04/24: RA O2 WAS CHECKED & WAS 68%. O2 PLACED AT 3L NC & WENT UP TO 100%. TURNED DOWN TO 1.5L & MAINTAINING AT 100% PN 04/24: SHE IS STILL REQUIRING 2 LITERS NC TO MAINTAIN SATS GREATER THAN 92% PN 04/25: PT HAS A 10-POUND WEIGHT GAIN SINCE ARRIVAL. SEEMS SOMEWHAT WITHDRAWN & IN SLIGHT RESPIRATORY DISTRESS WITH ACCESSORY MUSCLE USAGE CONCERN FOR VOLUME OVERLOAD CONCERN FOR ACUTE RESPIRATORY FAILURE ABG 04/25: PH 7.32 PCO2 53.1 PO2 75.6 RISKS: PN 04/23: CHRONIC COPD. HTN PN 04/25: S/P L ARTHROPLASTY; DAILY ALCOHOL USE. COPD WITH EXACERBATION TREATMENT: CPOE 04/21: RESP: O2 TO KEEP SATS 92% ORDER 04/25: RESP: VISION BIPAP HS CPOE 04/25: DUONEB Q4 HR Thank you, Michelle (This form is maintained as a part of the permanent medical record) 2014 [employer] All Rights Reserved Michelle Calle, RN, KAYLA [email or web address] Office: [phone] [facility]OSPITALRuy
[2018-04-26] MEDS ORDERED: Furosemide 20 MG/2 ML VIAL SLOW IVP SCH (10:30)
[2018-04-26] MEDS: Aspirin 81 mg Enteric Coated Tablet PO SCH ×2 (11:23→21:29)
[2018-04-26] MEDS: Folic Acid 1 MG TAB PO SCH (11:24)
[2018-04-26] MEDS: Senokot S 8.6-50 MG TAB PO SCH ×2 (11:24→21:29)
[2018-04-26] MEDS: Polyethylene Glycol 3350 17 GM Packet PO SCH (11:24)
[2018-04-26] MEDS ORDERED: Potassium Chloride 20 MEQ TAB PO SCH (16:00)
[2018-04-26] MEDS ORDERED: Magnesium Citrate 300 ML BOT PO SCH (16:00)
--- NOTE | 2018-04-26 18:38 | PRG ---
DATE OF SERVICE: 04/26/2018 SUBJECTIVE: Ms. Carranza is a pleasant 78-year-old female who is postop day #4 status post hemiarthropl asty of left femoral neck fracture. Yesterday, patient was diuresed after being found to demonstrate signs and symptoms of congestive heart failure. Breathing appears improved today. She is no longer requiring BiPAP. Oxygen requirements are improved and patient is able to vocalize. Pain seems well controlled. She is sitting out of bed in a chair. OBJECTIVE: VITAL SIGNS: Temperature 98.6, pulse 107, respiration rate 18, O2 sats 2 liters nasal cannula, blood pressure 132/74. GENERAL: Elderly appearing female in no acute distress, sitting in a chair, out of bed. PULMONARY: Normal work of breathing. Symmetric rise. CARDIOVASCULAR: Regular rate and rhythm. GASTROINTESTINAL: Abdomen is soft, nontender, nondistended. MUSCULOSKELETAL: Moves all extremities x4. NEUROLOGIC: No focal deficit is noted. LABORATORY DATA AND IMAGING DATA: WBC 8.6, hemoglobin 10.1, hematocrit 31, platelet count 189. Sodi um 145, potassium 3.4, chloride 107, carbon dioxide 33, BUN 21, creatinine 0.64, glucose 103. BNP 66 0. Chest x-ray dated 04/25/2018 demonstrated interval development of right pleural effusion. ASSESSMENT: 1. Status post mechanical fall. 2. Left femoral neck fracture, postop day #4 status post hemiarthroplasty. 3. Acute traumatic pain. 4. Acute hypoxic and hypercapnic respiratory failure, improving. 5. Decompensated heart failure with preserved ejection fraction. 6. Right pleural effusion. 7. Presumed chronic lung disease on steroid Dosepak. PLAN: Continue PT and OT. The patient was n.p.o., given drowsiness and difficulty breathing yesterd ay. Her mental status has improved and she should resume p.o. intake. Increase bowel regimen given patient's last bowel movement during hospitalization. One time dose IV Lasix now for continued diure sis. A.m. labs. Replete abnormal electrolytes. Wean O2 as able. The patient should continue to montes ve BiPAP p.r.n. Continue Medrol Dosepak. Plan of care was discussed with the patient at bedside and all questions were answered at the time of this dictation. The patient was seen and evaluated with Dr. Foster.
[2018-04-27] MEDS: traMADol HCl 50 MG TAB PO SCH ×4 (00:22→17:53)
[2018-04-27] MEDS: Acetaminophen 500 MG TAB PO SCH ×4 (02:50→21:21)
[2018-04-27 06:11] LABS: Anion Gap 8 mmol/L (10-20); BUN (Urea Nitrogen) 18 mg/dL (9.8-20.1); Calc. Creatinine Clearance 57 mL/min (70-130); Calcium 8.7 mg/dL (7.8-10.44); Carbon Dioxide 36 mmol/L (23-31); Chloride 103 mmol/L (98-107); Estimated GFR-MDRD Greater than 90; Glucose 102 mg/dL (83-110); Magnesium 1.6 mg/dL (1.6-2.6); Phosphorus 1.5 mg/dL (2.3-4.7); Potassium 4.2 mmol/L (3.5-5.1); Sodium 143 mmol/L (136-145)
[2018-04-27] MEDS: Budesonide 0.5 MG/2 ML NEB INH SCH ×2 (07:37→18:25)
[2018-04-27] MEDS: Aspirin 81 mg Enteric Coated Tablet PO SCH ×2 (08:42→21:21)
[2018-04-27] MEDS: Folic Acid 1 MG TAB PO SCH (08:42)
[2018-04-27] MEDS: methylPREDNISolone 4 mg Tablet PO SCH ×2 (08:42→17:53)
[2018-04-27] MEDS: Senokot S 8.6-50 MG TAB PO SCH ×2 (08:43→21:21)
[2018-04-27] MEDS: Polyethylene Glycol 3350 17 GM Packet PO SCH (08:43)
[2018-04-27] MEDS ORDERED: Furosemide 20 MG/2 ML VIAL SLOW IVP SCH (09:00)
[2018-04-27] MEDS ORDERED: Magnesium Oxide 400 MG TAB PO SCH (10:13)
[2018-04-27] MEDS ORDERED: SODIUM PHOSPHATE IVPB SCH (11:00)
[2018-04-27] MEDS ORDERED: SODIUM CHLORIDE 0.9% IVPB SCH (11:00)
[2018-04-27] MEDS ORDERED: MAGNESIUM SULFATE IVPB SCH (11:00)
[2018-04-27] MEDS: Glycerin Adult Supp. (12 ct jar) PR SCH (11:23)
[2018-04-27] MEDS: Megestrol Acetate 40 MG TAB PO SCH (11:23)
--- NOTE | 2018-04-27 17:32 | PRG ---
DATE OF SERVICE: 04/27/2018 SUBJECTIVE: Ms. Carranza is a 78-year-old woman who is postoperative day #5, status post left hemiarthr oplasty. The patient is quite fatigued with poor appetite. She is slowly participating with Yipit therapy. Today, she was able to ambulate 18 feet. Currently, she reports adequate pain control. OBJECTIVE: VITAL SIGNS: This morning includes blood pressure 124/75, pulse 93, respiratory rate is 18, temperat ure is 97.4 degrees Fahrenheit, oxygen saturation is 100% on room air. HEENT: Reveals normocephalic and atraumatic. Pupils are equal, round, reactive to light and accommo dation. HEART: Reveals regular rate and rhythm, no murmurs or gallops auscultated. LUNGS: Clear to auscultation bilaterally. Breathing regular and unlabored. ABDOMEN: Soft, nontender, nondistended. NEUROLOGIC: Reveals no focal deficits present. EXTREMITIES: Reveals 2+ radial and pedal pulses bilaterally. No ankle edema present. LABORATORY DATA: Today includes metabolic profile: Sodium 143, potassium 4.2, chloride is 103, bica rbonate is 36, BUN is 18, creatinine 0.58, glucose is 102, magnesium 1.6, phosphorus is 1.5. IMPRESSION: 1. Postoperative day #5 status post left hemiarthroplasty. 2. Stable acute blood loss anemia. 3. Acute hypophosphatemia. 4. Acute hypomagnesemia. PLAN: 1. Correct abnormal electrolytes. 2. We will start Megace for appetite stimulation. 3. Increase activity per physical and occupational therapy. I have discussed with the patient and h er adult son at bedside. The patient has been evaluated by PM&R for possible inpatient rehabilitation post-discharge. Failure to progress to a rehabilitation placement, we will consider transfer to fdc facility for rehabilitation. The patient and her son have both indicated understanding of information given. I have answered thei r questions.
[2018-04-28] MEDS: traMADol HCl 50 MG TAB PO SCH ×4 (00:53→18:42)
[2018-04-28] MEDS: Acetaminophen 500 MG TAB PO SCH ×4 (03:43→22:17)
[2018-04-28] MEDS: Budesonide 0.5 MG/2 ML NEB INH SCH ×2 (05:51→18:25)
[2018-04-28 06:19] LABS: BUN (Urea Nitrogen) 16 mg/dL (9.8-20.1); Calc. Creatinine Clearance 63 mL/min (70-130); Carbon Dioxide Greater than 37 mmol/L (23-31); Chloride 101 mmol/L (98-107); Estimated GFR-MDRD Greater than 90; Glucose 95 mg/dL (83-110); Phosphorus 3.5 mg/dL (2.3-4.7); Potassium 3.5 mmol/L (3.5-5.1); Sodium 144 mmol/L (136-145)
[2018-04-28] MEDS ORDERED: methylPREDNISolone 4 mg Tablet PO SCH (08:00)
[2018-04-28] MEDS: Polyethylene Glycol 3350 17 GM Packet PO SCH (08:18)
[2018-04-28] MEDS: Aspirin 81 mg Enteric Coated Tablet PO SCH ×2 (08:18→22:17)
[2018-04-28] MEDS: Senokot S 8.6-50 MG TAB PO SCH ×2 (08:18→22:15)
[2018-04-28] MEDS: Folic Acid 1 MG TAB PO SCH (08:18)
[2018-04-28] MEDS: Megestrol Acetate 40 MG TAB PO SCH (08:19)
[2018-04-28] MEDS: Glycerin Adult Supp. (12 ct jar) PR SCH (08:19)
--- NOTE | 2018-04-28 18:23 | RAD ---
RADIOGRAPH CHEST 1 VIEW: HISTORY: Pleural effusion. FINDINGS: There is hyperinflation of the lungs, consistent with COPD. There is no evidence of air space densit y, pneumothorax, or pulmonary edema. The lateral costophrenic angles are sharp. IMPRESSION: 1) No acute pulmonary findings. 2) Emphysema. 3) For evaluation of pleural effusion, a two view study is recommended. Recommend lateral view. laura POS: CLAUDIA
--- NOTE | 2018-04-28 18:51 | PRG ---
DATE OF SERVICE: 04/28/2018 SUBJECTIVE: The patient is postop day #6 status post left hemiarthroplasty. She has sustained a maria antonia und level fall in which she sustained a left hip fracture. The patient tolerated her procedure well, but has been fatigued and has a decreased appetite since her hospital stay. Yesterday, Radha was a dded to it and this morning she said her appetite is slightly increased. Otherwise, she states that her pain is controlled and she has begun working with physical and occupational therapy. She is curr ently awaiting placement decision to rehabilitation versus senior living facility. PHYSICAL EXAMINATION: VITAL SIGNS: Temperature is 98.2, heart rate 107, blood pressure 135/80, respirations 20, oxygen sat uration 100% on 2 liters via nasal cannula. GENERAL: The patient is resting comfortably in bed. She is a little drowsy, but conversant. HEENT: Unremarkable. LUNGS: Clear to auscultation bilaterally. HEART: Regular rate and rhythm. ABDOMEN: Soft, flat, nontender with active bowel sounds. EXTREMITIES: Neurovascularly intact x4. Postop dressing is clean, dry, and intact. LABORATORY DATA AND IMAGING DATA: Sodium is 144, potassium 3.5, chloride 101, CO2 greater than 37, B UN 16, creatinine 0.53, glucose 95, magnesium 2.0 and phosphorus 3.5. There are no radiographs to re view this morning. ASSESSMENT: 1. Status post left hip hemiarthroplasty. 2. Hypercarbia on venous blood. PLAN: Will be to continue supportive care. We will repeat a chest x-ray this morning. It was noted on a previous chest x-ray that she had developed a small pleural effusion. We will reevaluate this today. Continue physical and occupational therapy and await final placement decision.
[2018-04-29] MEDS: traMADol HCl 50 MG TAB PO SCH ×4 (03:02→15:36)
[2018-04-29] MEDS: Acetaminophen 500 MG TAB PO SCH ×4 (04:14→22:03)
[2018-04-29 05:45] LABS: Anion Gap 11 mmol/L (10-20); BUN (Urea Nitrogen) 19 mg/dL (9.8-20.1); Calc. Creatinine Clearance 60 mL/min (70-130); Carbon Dioxide 33 mmol/L (23-31); Chloride 100 mmol/L (98-107); Estimated GFR-MDRD Greater than 90; Glucose 94 mg/dL (83-110); Magnesium 1.7 mg/dL (1.6-2.6); Phosphorus 3.2 mg/dL (2.3-4.7); Potassium 3.7 mmol/L (3.5-5.1); Sodium 140 mmol/L (136-145)
[2018-04-29] MEDS: Budesonide 0.5 MG/2 ML NEB INH SCH ×2 (07:23→18:36)
[2018-04-29] MEDS ORDERED: Sodium Chloride 0.9% 500 ML IV SCH (07:30)
[2018-04-29 09:21] LABS: #Basophils 0.1 thou/uL (0.0-0.2); #Eosinphils 0.1 thou/uL (0.0-0.7); #Lymphocytes 2.3 thou/uL (1.20-3.40); #Monocytes 1.2 thou/uL (0.11-0.59); #Neutrophils 4.7 thou/uL (1.40-6.50); %Basophils 0.8 % (0.0-1.0); %Eosinophils 1.8 % (0.0-10.0); %Lymphocytes 27.3 % (21.0-51.0); %Monocytes 14.7 % (0.0-10.0); %Neutrophils 55.5 % (42.0-75.0); Hemoglobin 10.3 g/dL (12.0-16.0); Mean Corpuscular HGB CONC 31.3 g/dL (32.0-36.0); Mean Corpuscular Hemoglobin 38.3 pg (27.0-31.0); Mean Platelet Volume 6.7 fL (7.4-10.4); Platelet Count 228 thou/uL (130-400); RBC Distribution Width 14.8 % (11.5-14.5); Red Blood Cell (RBC) Count 2.68 mill/uL (4.20-5.40); White Blood Cell (WBC) Count 8.5 thou/uL (4.8-10.8)
[2018-04-29] MEDS: Megestrol Acetate 40 MG TAB PO SCH (09:58)
[2018-04-29] MEDS: Aspirin 81 mg Enteric Coated Tablet PO SCH ×2 (09:59→22:04)
[2018-04-29] MEDS: Folic Acid 1 MG TAB PO SCH (09:59)
[2018-04-29] MEDS: Polyethylene Glycol 3350 17 GM Packet PO SCH (14:05)
[2018-04-29] MEDS: Senokot S 8.6-50 MG TAB PO SCH ×2 (14:05→22:04)
--- NOTE | 2018-04-29 14:07 | PRG ---
DATE OF SERVICE: 04/29/2018 HISTORY OF PRESENT ILLNESS: Farzaneh Carranza is a 78-year-old female, DNR, status post fall suffering a le ft femoral neck fracture. She has COPD, has required intermittent BiPAP. She has a history of tobac co abuse, COPD diagnosed this hospitalization. Rehab is pending. PHYSICAL EXAMINATION: GENERAL: The patient is alert, awake, cooperative. Her son is at the bedside. VITAL SIGNS: 97.2, 79, 116/73. LABORATORY: White count 8, hemoglobin 10.3. Basic metabolic profile essentially unremarkable. LUNGS: Clear to auscultation, no wheezing. CARDIAC: Regular rate and rhythm. ABDOMEN: Soft, nontender. EXTREMITIES: Unremarkable. ASSESSMENT AND PLAN: 1. Chronic obstructive pulmonary disease. 2. Status post open reduction internal fixation hip, rehab pending. The patient will be discharged to rehab whenever she is accepted. Assisted Unit may be necess belem if rehab is not approved.
[2018-04-30] MEDS: traMADol HCl 50 MG TAB PO SCH ×4 (00:10→23:40)
[2018-04-30] MEDS: Acetaminophen 500 MG TAB PO SCH ×4 (03:04→20:52)
[2018-04-30 05:50] LABS: Anion Gap 8 mmol/L (10-20); BUN (Urea Nitrogen) 19 mg/dL (9.8-20.1); Calc. Creatinine Clearance 58 mL/min (70-130); Calcium 8.7 mg/dL (7.8-10.44); Carbon Dioxide 35 mmol/L (23-31); Chloride 99 mmol/L (98-107); Estimated GFR-MDRD Greater than 90; Glucose 84 mg/dL (83-110); Magnesium 1.5 mg/dL (1.6-2.6); Phosphorus 3.4 mg/dL (2.3-4.7); Potassium 3.8 mmol/L (3.5-5.1); Sodium 138 mmol/L (136-145)
[2018-04-30 06:18] LABS: Hemoglobin 9.7 g/dL (12.0-16.0); Lymphocytes 30 % (21-51); MDiff Complete? YES; Mean Corpuscular HGB CONC 32.5 g/dL (32.0-36.0); Mean Corpuscular Hemoglobin 38.9 pg (27.0-31.0); Mean Platelet Volume 6.3 fL (7.4-10.4); Monocytes 16 % (0-10); Neutrophil 53 % (42-75); Platelet Count 254 thou/uL (130-400); RBC Distribution Width 14.9 % (11.5-14.5); Reactive Lymphocytes 1 % (0-10); Red Blood Cell (RBC) Count 2.51 mill/uL (4.20-5.40)
[2018-04-30] MEDS ORDERED: Magnesium 2 GM/50 ML 2 GM in Premix Bag 1 BAG IVPB SCH (06:45)
[2018-04-30] MEDS: Budesonide 0.5 MG/2 ML NEB INH SCH ×2 (06:57→18:12)
[2018-04-30] MEDS ORDERED: Magnesium Sulfate 2 GM, Admixture Fee 1 EACH in Sodium Chloride 0.9% 100 ML IVPB SCH (07:00)
[2018-04-30] MEDS: Megestrol Acetate 800 MG/20 ML UDCUP PO SCH (08:52)
[2018-04-30] MEDS: Folic Acid 1 MG TAB PO SCH (08:52)
[2018-04-30] MEDS: Aspirin 81 mg Enteric Coated Tablet PO SCH ×2 (08:52→20:52)
[2018-04-30] MEDS: Polyethylene Glycol 3350 17 GM Packet PO SCH (08:53)
[2018-04-30] MEDS: Senokot S 8.6-50 MG TAB PO SCH ×2 (08:53→20:52)
--- NOTE | 2018-04-30 13:52 | PRG ---
DATE OF SERVICE: 04/30/2018 SUBJECTIVE: Ms. Carranza is a 78-year-old woman who is post-injury day #9 status post fall. The patien t sustained a left femoral neck fracture. She is postoperative day #8 status post left hemiarthropla sty. She developed acute congestive heart failure which has since resolved. Today, she is more aler t and interactive. Appetite is slowly improving. OBJECTIVE: VITAL SIGNS: This morning includes blood pressure 142/86, pulse is 99, respiratory rate 18, temperat ure is 97.6 degrees Fahrenheit, oxygen saturation is 100% on 2 liters by nasal cannula oxygen. HEENT: Reveals normocephalic and atraumatic. NECK: She has no jugular venous distention. HEART: Reveals regular rate and rhythm. LUNGS: Clear to auscultation bilaterally. Breathing is regular and unlabored. ABDOMEN: Soft, nontender, nondistended. EXTREMITIES: Reveals 2+ radial and pedal pulses bilaterally. No ankle edema is present. NEUROLOGIC: Reveals no focal deficits present. LABORATORY DATA: Today includes a CBC with 8000 white blood cells, hemoglobin and hematocrit 9.7 and 30.0 respectively. Platelet count is 254,000. Metabolic profile: Sodium 138, potassium 3.8, chlor soto is 99, bicarbonate is 35, BUN is 19, creatinine is 0.57, glucose is 84. Magnesium 1.5, phosphoru s is 3.4. IMPRESSION: 1. Postoperative day #8 status post left hemiarthroplasty. 2. Resolving acute metabolic encephalopathy. 3. Resolved acute congestive heart failure. 4. Acute hypomagnesaemia. 5. Acute hypokalemia. PLAN: Correct abnormal electrolytes. Increase activity per physical and occupational therapy. The patient is being evaluated by PM&R and acceptance into inpatient rehabilitation is pending insurance authorization.
[2018-04-30] MEDS: Mometasone/Formoterol 120 PUFF INHALER INH SCH (18:12)
[2018-04-30] MEDS: Pravastatin Sodium 20 MG TAB PO SCH (20:52)
[2018-04-30] MEDS ORDERED: Prevnar 13-Val Conj/PF 0.5 ML SYRINGE IM ONE (21:00)
[2018-05-01] MEDS: Acetaminophen 500 MG TAB PO SCH ×4 (03:30→20:55)
[2018-05-01] MEDS: traMADol HCl 50 MG TAB PO SCH ×3 (06:06→20:55)
[2018-05-01 06:24] LABS: Anion Gap 8 mmol/L (10-20); BUN (Urea Nitrogen) 14 mg/dL (9.8-20.1); Calc. Creatinine Clearance 58 mL/min (70-130); Calcium 8.4 mg/dL (7.8-10.44); Carbon Dioxide 31 mmol/L (23-31); Chloride 101 mmol/L (98-107); Estimated GFR-MDRD Greater than 90; Glucose 99 mg/dL (83-110); Magnesium 1.9 mg/dL (1.6-2.6); Potassium 3.4 mmol/L (3.5-5.1); Sodium 137 mmol/L (136-145)
[2018-05-01] MEDS: Mometasone/Formoterol 120 PUFF INHALER INH SCH ×2 (07:14→18:55)
[2018-05-01] MEDS: Budesonide 0.5 MG/2 ML NEB INH SCH ×2 (07:15→18:55)
[2018-05-01] MEDS ORDERED: Potassium Chloride 20 MEQ TAB PO SCH (08:00)
[2018-05-01] MEDS ORDERED: Potassium Chloride 40 MEQ, Magnesium Sulfate 2 GM in Sodium Chloride 0.9% 250 ML 250 ML IVPB SCH (08:45)
[2018-05-01] MEDS ORDERED: Losartan 25 MG TAB PO SCH (09:00)
[2018-05-01 09:18] LABS: Troponin I 0.024 ng/mL (< 0.028)
--- NOTE | 2018-05-01 10:13 | RAD ---
CHEST ONE VIEW: History: Arrhythmia Comparison: 04-28-18 FINDINGS: There is some bullous formation in the right upper lobe. No pneumothorax or effusion. Scarring left u pper lobe. There is mild chronic blunting of the right lateral costophrenic sulcus. Cardiac silhouette and media stinal contours are similar. IMPRESSION: Asymmetric right upper lobe emphysema. No acute intrathoracic abnormality. POS: [facility]
[2018-05-01] MEDS ORDERED: Carvedilol 3.125 MG TAB PO SCH ×3 (10:19→17:00)
[2018-05-01] MEDS: Folic Acid 1 MG TAB PO SCH (10:39)
[2018-05-01] MEDS: Aspirin 81 mg Enteric Coated Tablet PO SCH ×2 (10:39→20:55)
[2018-05-01] MEDS: Megestrol Acetate 800 MG/20 ML UDCUP PO SCH (10:41)
[2018-05-01] MEDS: Senokot S 8.6-50 MG TAB PO SCH ×2 (10:42→20:55)
[2018-05-01 12:41] LABS: Troponin I 0.013 ng/mL (< 0.028)
[2018-05-01] MEDS: Nebivolol HCl 2.5 MG TAB PO SCH (15:31)
--- NOTE | 2018-05-01 18:04 | PRG ---
DATE OF SERVICE: 05/01/2018 SUBJECTIVE: Ms. Carranza is a 78-year-old woman, procedure #10 status post fall. The patient is postop day #9 today status post left hemiarthroplasty. She is awake and alert today. She did have an epis ode of tachycardia this morning associated with a feeling of heaviness on her chest wall. She denied any syncope or dyspnea. She "felt like a weight wait sitting on my chest." She is partic ipating with physical therapy, making a constant progress. She tolerates general diet, although she still with poor appetite. She has adequate urinary output. OBJECTIVE: VITAL SIGNS: This morning included blood pressure 120/56, pulse is 116, temperature is 97.6, respira tory rate is 16, oxygen saturation is 98% on room air. HEENT: Pupils equal, round, and reactive to light and accommodation. She has no jugular venous dist ention noted. HEART: Reveals regular rate with sinus tachycardia. No murmurs or gallops auscultated. CHEST: Clear to auscultation bilaterally. Breathing regular and unlabored. ABDOMEN: Soft, nontender, nondistended. NEUROLOGIC: Reveals no focal deficits present. Twelve lead EKG today reveals sinus tachycardia with a septal infarct, age indeterminate. LABORATORY DATA: Today includes metabolic profile: Sodium 137, potassium 3.4, chloride is 101, bica rbonate 31, BUN 14, creatinine 0.57, glucose 99. Phosphorus 3.0, magnesium 1.9. Beta natriuretic pe ptide is 337.6, this is in contrast to 660 six days ago. Troponin I series of three is decreasing, s tarting from a high of 0.024. Chest x-ray reveals no significant acute pathology. IMPRESSION: Postoperative day #9 status post left hemiarthroplasty. PLAN: I discussed the above findings with the maintenance of way superintendent. It was recommended that the patient und ergo Cardiolite stress test tomorrow. If the stress test is normal, the patient will be transferred to inpatient rehabilitation. She is in agreement with the plan.
[2018-05-01] MEDS: Pravastatin Sodium 20 MG TAB PO SCH (20:55)
[2018-05-02] MEDS: traMADol HCl 50 MG TAB PO SCH (00:43)
[2018-05-02] MEDS: Acetaminophen 500 MG TAB PO SCH ×2 (04:07→11:07)
[2018-05-02] MEDS ORDERED: Acetaminophen 1,000 MG in Premix Bag 1 BAG IVPB SCH (06:00)
[2018-05-02 06:48] LABS: Anion Gap 8 mmol/L (10-20); BUN (Urea Nitrogen) 9 mg/dL (9.8-20.1); Calc. Creatinine Clearance 64 mL/min (70-130); Calcium 8.5 mg/dL (7.8-10.44); Carbon Dioxide 26 mmol/L (23-31); Chloride 108 mmol/L (98-107); Estimated GFR-MDRD Greater than 90; Glucose 89 mg/dL (83-110); Magnesium 2.3 mg/dL (1.6-2.6); Phosphorus 2.9 mg/dL (2.3-4.7); Potassium 4.9 mmol/L (3.5-5.1); Sodium 137 mmol/L (136-145)
[2018-05-02] MEDS: Mometasone/Formoterol 120 PUFF INHALER INH SCH (07:09)
[2018-05-02] MEDS: Budesonide 0.5 MG/2 ML NEB INH SCH (07:12)
[2018-05-02] MEDS: Senokot S 8.6-50 MG TAB PO SCH (10:49)
[2018-05-02] MEDS: Folic Acid 1 MG TAB PO SCH (10:49)
[2018-05-02] MEDS: Megestrol Acetate 800 MG/20 ML UDCUP PO SCH (10:50)
[2018-05-02] MEDS: Aspirin 81 mg Enteric Coated Tablet PO SCH (10:50)
[2018-05-02] MEDS: Nebivolol HCl 2.5 MG TAB PO SCH (11:39)
[2018-05-02 12:06] VITALS: BP 124/59; TEMP 97.9
[2018-05-02] MEDS ORDERED: Regadenoson 0.4 MG/5 ML SYRINGE ONE (12:23)
--- NOTE | 2018-05-02 12:36 | NM ---
NUCLEAR MEDICINE CARDIAC MYOCARDIAL PERFUSION SPECT EJECTION FRACTION STUDY WALL MOTION CINE: DATE: 05/02/2018. HISTORY: A 78-year-old female smoker with asthma, hypertension, and dyslipidemia, presents with chest pain. TECHNIQUE: Number of days: 2. Rest study: Tc99m sestamibi (Cardiolite) dose: 29.5 mCi. Pharmacologic stress: Lexiscan dose: 0.4 mg Stress study: Tc99m sestamibi (Cardiolite) dose: 31.1 mCi. FINDINGS: CARDIAC (MYOCARDIAL PERFUSION) SPECT There are no reversible myocardial perfusion defects. EJECTION FRACTION STUDY EF = 90% WALL MOTION CINE Normal. IMPRESSION: No evidence of reversible ischemia. MURRAY Vaughn POS: [facility]
[2018-05-02] MEDS ORDERED: Carvedilol 3.125 MG TAB PO SCH (17:00)
--- NOTE | 2018-05-03 01:03 | DIS-2 ---
DATE OF ADMISSION: 04/21/2018 DATE OF DISCHARGE: 05/02/2018 RESIDENT: Dr. Yolanda Cook. ADMITTING ATTENDING: Dr. Gentry aJcobson. DISCHARGE ATTENDING: Dr. Simone Foster. CONSULTS: 1. Dr. Josef Barry, Hospitalist. 2. Orthopedic Surgery, Dr. Keo Meyers. 3. Cardiology, Dr. Noah Dickey. PROCEDURES: 1. Chest x-ray on 04/21/2018, which showed no acute cardiopulmonary process. Lungs were noted to be hyperexpanded. 2. Brain CT significant for no acute intracranial abnormalities. 3. This is a left hip x-ray significant for a subcapital left femoral neck fracture. 4. Left knee x-ray which showed no acute fracture. 5. Pelvis x-ray which was significant for a subcapital fracture of the left hip. 6. Echocardiogram on 04/22/2018, significant for an ejection fraction estimated at 55-60% and possib le diastolic dysfunction. No cardiac wall abnormalities noted. 7. Hip x-ray on 04/22/2018, significant for left hip arthroplasty. Alignment is near anatomic. 8. Chest x-ray on 04/25/2018, which shows emphysematous changes with blunting of the right costophre yara angle suggesting right pleural effusion. Chest x-ray on 04/28/2018, significant for emphysema. 9. Chest x-ray on 05/01/2018, significant for asymmetric right upper lobe emphysema with no acute in trathoracic abnormality. 10. Stress test nuclear medicine, which showed no evidence of reversible ischemia with normal wall m otion and estimated EF of 90%. 11. Left hemiarthroplasty on 04/22/2018. PRIMARY DIAGNOSES: 1. Status post mechanical fall. 2. Left subcapital femoral neck fracture. 3. Acute hypoxic respiratory distress secondary to acute on chronic obstructive pulmonary disease an d/or congestive heart failure exacerbation. 4. Hypokalemia. 5. Hypomagnesemia. 6. Hypophosphatemia. 7. Acute kidney injury. SECONDARY DIAGNOSES: 1. Hypertension. 2. Newly diagnosed chronic obstructive pulmonary disease. 3. History of tobacco use. 4. History of alcohol abuse. DISCHARGE MEDICATIONS: 1. Breo Ellipta 100 mcg/25 mcg 1 inhalation daily. 2. Raloxifene hydrochloride 60 mg p.o. daily. 3. Bystolic 2.5 mg p.o. daily. 4. Albuterol sulfate 2 puffs inhaled every 6 hours p.r.n. 5. Pravastatin sodium 20 mg p.o. at bedtime. 6. Aspirin 81 mg p.o. daily. 7. Acetaminophen 1000 mg p.o. every 6 hours. 8. Pulmicort nebulized solution 0.5 mg inhaled b.i.d. 9. Folic acid 1 mg p.o. daily. 10. Megace 400 mg p.o. daily. 11. Dulera 100 mcg/5 mcg inhaler 2 puffs inhaled b.i.d. 12. Senokot-S 1 tablet p.o. b.i.d. 13. Thiamine 100 mg p.o. daily. DISCONTINUED MEDICATIONS: Losartan potassium 100 mg p.o. daily. HOSPITAL COURSE: The patient is a 78-year-old -[place] female with a past medical history si gnificant for hypertension who presented to the [facility] status post an unwitn essed fall at home with unknown circumstances and unknown downtime. On presentation, the patient rep orted bilateral hip pain with the left being more severe than the right and was unable to ambulate. On evaluation in the emergency department, the patient's vitals are significant for an elevated blood pressure of 159/104 and a pulse of 125. She was also slightly tachypneic with respirations at 24 br eaths per minute and was satting 93% on room air. She reported her pain to be a 7/10 on presentation . She was given 4 mg of IV morphine and 1 liter of normal saline as well as a [facility]Neb treatment in [facility] emergency department. The patient also had multiple imaging studies including a chest x-ray, brain CT, left hip and knee x-ray and a pelvic x-ray, all of which were negative except that her left hip and pelvis x-rays which both showed a subcapital left femoral neck fracture. The trauma team was the n consulted to come and evaluate the patient for admission as well as Orthopedic Surgery. However, f or the trauma, routine labs were also obtained which are significant for a slightly elevated white bl ood count of 11.7 and a macrocytosis with an MCV of 115. So, now the trauma team and all was consult ed. Upon my evaluation by the trauma team, the patient was noted to have significant expiratory whee zing on exam, but was satting well on room air. She was therefore admitted to the medical floor for observation overnight with plans for operative intervention the following morning. The patient was s tarted on IV Solu-Medrol and the medical team was consulted to evaluate the patient for medical clear ance for surgery and initiated possible syncopal workup as a circumstancing surrounding the patient's fall were unknown. The patient was admitted to telemetry to observe for possible arrhythmia rather than the medical service. An echocardiogram was ordered for the following morning and perioperative pain management was done with both p.o. and IV analgesics. The following morning, Dr. Josef Barry , hospitalist came to evaluate the patient and recommended clearance by a sales operations lead prior to under going surgical repair of her hip fracture. Dr. Noah Dickey therefore came and evaluated the magnolia nichols that same day and due to the near-normal results of her echocardiogram cleared the patient for surgery. The patient, therefore, underwent surgical repair of her left hip fracture and tolerated th e procedure well with no complications. She was then admitted to the surgical floor postop for posto p monitoring and pain control. The patient was monitored on the surgical floor by the hospitalist lauren kelley in the Trauma Service for the next several days and on 04/25/2018 was noted to be severely short o f breath demonstrating pursed lip breathing on exam and during rounds that morning. A stat ABG was t hen ordered, which did reveal that the patient had a significant respiratory acidosis with concomitan t hypoxia. She was then placed on BiPAP for respiratory support and by the following morning, the magnolia nichols's pO2 via VBG had risen to 89.4 with a pO2 being within normal range at 49.8. She was continue d on scheduled DuoNebs and completed a p.o. course of steroids. Over the course of her hospital stay , she was also started on budesonide inhaled b.i.d. and required nasal cannula on and off for the dur ation of her hospital stay to maintain her oxygen saturations greater than 92%. Also, of note, the patient experienced an episode of chest pain with associated shortness of breath t he morning of 05/01/2018. A troponin was ordered at that time which resulted within normal limits at 0.024. The troponin was trended approximately 4 hours later and it down trended to 0.020 and again 2 hours later at 0.013. The patient was started on a daily beta greyson as well as she was tachycard ic on and off for the duration of her hospital stay as well. Cardiology was consulted via telephone and recommended obtaining a nuclear or Cardiolite stress test prior to discharging the patient to [facility]. The stress test was therefore ordered for the following morning and the patie nt was made n.p.o. after midnight. The morning of the patient's discharge, she underwent a Cardiolit e stress test without any issues and it was reported to be within normal limits with no evidence of r eversible ischemia and normal cardiac wall motion. She was therefore cleared for discharge to [facility] ent rehabilitation where she would have close medical monitoring while attempting to get her back to her baseline level of function. DISPOSITION: Stable. DISCHARGE INSTRUCTIONS: 1. Location: Inpatient rehab. 2. Diet: Regular diet. No restrictions with Ensure Clear t.i.d. between meals. 3. Activity: As tolerated. 4. Followup: The patient was instructed to follow up with her primary care physician, Dr. Luci emerson within 2 weeks of discharge as well as Dr. Keo Meyers, orthopedic surgeon, within 2 weeks of discharge.
--- NOTE | 2018-05-03 07:56 | PRG-2 ---
DATE OF SERVICE: 05/02/2018 SUBJECTIVE: Ms. Carranza is a 78-year-old -[place] female who is status post fall, sustaining a left femoral neck fracture. She is postop day #10 status post left hemiarthroplasty. There were no acute events overnight; however, the patient did remain on supplemental oxygen for the entire durati on of the evening. She was satting anywhere between 97%-100% with this. On exam, the patient has no complaints and states she does not feel short of breath currently. She does endorse one episode of feeling short of breath overnight, but states it was relieved with the supplemental oxygen. The flor ent had a Cardiolite stress test done this morning due to her episode of chest pain with dyspnea yest erday. Her stress test is negative, patient should be able to be discharged to inpatient rehabilitat ion today. The patient is on board with this. OBJECTIVE: VITAL SIGNS: Temperature 98.1 degrees Fahrenheit, pulse 88 while in the room, respirations 20, O2 sa t 99% on 1 liter nasal cannula, blood pressure 138/79. GENERAL: Patient is an elderly -[place] female sitting up in bed in no acute distress. HEENT: Normocephalic, atraumatic. CARDIOVASCULAR: Regular rate and rhythm, no murmurs. LUNGS: Clear to auscultation bilaterally; however, decreased breath sounds throughout. The patient not quite able to take a deep breath even with aid of supplemental oxygen. ABDOMEN: Soft, nontender, nondistended. NEUROLOGIC: No focal deficits noted. LABORATORY DATA: Sodium 137, potassium 4.9, chloride 108, bicarbonate 26, BUN 9, creatinine 0.52, gl ucose 89, calcium 8.5, phosphorus 2.9, magnesium 2.3. RADIOLOGIC DATA: Nuclear stress test significant for no reversible myocardial perfusion defects with an estimated EF of 90% with normal wall motion and no evidence of reversible ischemia. ASSESSMENT: 1. Status post mechanical fall sustaining a left femoral neck fracture, status post repair. 2. Acute metabolic encephalopathy, resolved. 3. Acute congestive heart failure, resolved. 4. Typical chest pain, resolved. PLAN: Given the results of the patient's stress test, she will be cleared for discharge to inpatient rehabilitation today. We will continue to monitor her vitals closely until the patient is ready for discharge. We will continue beta greyson therapy upon discharge. We will have patient follow up [facility] Orthopedic Surgery and the trauma attending within 2 weeks of discharge. The plan was discussed w ith the trauma attending, Dr. Simone Foster.
== END 2018-05-02 15:29 | DRG 469 ==
LOC: ERS 18:09 → 2NO 21:15 → SJJU 04-22 17:44
PROVIDERS: ADMIT Surgery; ATTEND Surgery
PROC: 0SRS0JZ Replacement of Left Hip Joint, Femoral Surface with Synthetic Substitute, Open Approach (ICD-10-PCS; principal; 2018-04-21)
PROC: 5A09457 Assistance with Respiratory Ventilation, 24-96 Consecutive Hours, Continuous Positive Airway Pressure (ICD-10-PCS; 2018-05-01)
DX: S72.012A Unspecified intracapsular fracture of left femur, initial encounter for closed fracture (principal); G93.41 Metabolic encephalopathy; J96.01 Acute respiratory failure with hypoxia; J44.1 Chronic obstructive pulmonary disease with (acute) exacerbation; D62 Acute posthemorrhagic anemia; N17.9 Acute kidney failure, unspecified; W19.XXXA Unspecified fall, initial encounter; Y93.9 Activity, unspecified; Y92.009 Unspecified place in unspecified non-institutional (private) residence as the place of occurrence of the external cause; F17.210 Nicotine dependence, cigarettes, uncomplicated; Z72.89 Other problems related to lifestyle; I50.9 Heart failure, unspecified; E87.6 Hypokalemia; E83.39 Other disorders of phosphorus metabolism; E83.42 Hypomagnesemia; J44.9 Chronic obstructive pulmonary disease, unspecified; Z66 Do not resuscitate; I11.0 Hypertensive heart disease with heart failure
CPT/HCPCS: 36415; 36416; 70450; 71045; 72170; 78452; 80048; 80053; 80307; 81003; 81015; 82140; 82550; 82553; 82805; 83690; 83735; 83880; 84100; 84443; 84484; 85025; 85610; 85730; 87040; 90471; 90662; 93005; 93010; 93017; 93306; 94002; 94640; 94660; 94760; 96361; 96374; A9500; G0008; G0390; G8978-GP-CM; G8979-GP-CI; G8987-GO-CM; G8988-GO-CJ; G8996-GN-CK; G8996-GN-CM; G8997-GN-CJ; G8997-GN-CK; J0131; J0280; J1885; J1940; J2001; J2270; J2405; J2704; J2785; J2920; J3010; J3475; J3480; J7050; J7620; J7626; S0028; S0179

== ENCOUNTER 2018-06-12 12:12 | Inpatient (IN) | payer MEDICARE ==
[2018-06-12] MEDS ORDERED: methylPREDNISolone Sod Succ/PF 125 MG/2 ML VIAL ONE (12:42)
[2018-06-12] MEDS ORDERED: Piperacillin/Tazobactam 3.375 GM VIAL ONE (12:42)
[2018-06-12 13:13] LABS: Bilirubin Small (Negative); Blood, Urine Trace (Negative); Glucose, Urine (Dipstick) Negative (Negative); Leukocyte Negative (Negative); Nitrite Negative (Negative); Protein, Urine (Dipstick) Negative (Neg-Trace); Specific Gravity, Urine 1.025 (1.005-1.030); Urobilinogen 0.2 mg/dL (0.2-1.0); pH, Urine 6.5 (5.0-9.0)
[2018-06-12 13:16] LABS: Clarity Clear (Clear)
[2018-06-12 13:24] LABS: #Basophils 0.1 thou/uL (0.0-0.2); #Eosinphils 0.1 thou/uL (0.0-0.7); #Lymphocytes 1.3 thou/uL (1.20-3.40); #Monocytes 0.9 thou/uL (0.11-0.59); #Neutrophils 5.3 thou/uL (1.40-6.50); %Basophils 0.8 % (0.0-1.0); %Lymphocytes 16.7 % (21.0-51.0); %Monocytes 11.8 % (0.0-10.0); %Neutrophils 69.7 % (42.0-75.0); Hemoglobin 13.5 g/dL (12.0-16.0); Mean Corpuscular HGB CONC 30.1 g/dL (32.0-36.0); Mean Corpuscular Hemoglobin 32.7 pg (27.0-31.0); Platelet Count 336 thou/uL (130-400); RBC Distribution Width 14.3 % (11.5-14.5); Red Blood Cell (RBC) Count 4.13 mill/uL (4.20-5.40); White Blood Cell (WBC) Count 7.6 thou/uL (4.8-10.8)
[2018-06-12 13:26] LABS: RBC/HPF 0-3 HPF (0-3); WBC/HPF 0-3 HPF (0-3)
[2018-06-12 13:27] LABS: Bacteria/HPF None Seen HPF (None Seen); Hyaline Casts/LPF 0-3 HYALINE CAST LPF (0-3 Hyaline)
[2018-06-12 13:28] LABS: Crystals/HPF 1+ CA OXALATE HPF (Negative)
[2018-06-12 13:44] LABS: CKMB 2.3 ng/mL (0-6.6); Troponin I Less than 0.010 ng/mL (< 0.028)
[2018-06-12 13:45] LABS: ALT (SGPT) 11 U/L (8-55); AST (SGOT) 17 U/L (5-34); Albumin 3.3 g/dL (3.4-4.8); Alkaline Phosphatase 117 U/L (40-150); Anion Gap 14 mmol/L (10-20); BUN (Urea Nitrogen) 15 mg/dL (9.8-20.1); Bilirubin, Total 0.4 mg/dL (0.2-1.2); CK (CPK) 26 U/L (29-168); Calc. Creatinine Clearance 0 mL/min (70-130); Calcium 9.6 mg/dL (7.8-10.44); Carbon Dioxide 27 mmol/L (23-31); Chloride 102 mmol/L (98-107); Estimated GFR-MDRD Greater than 90; Globulin 2.6 g/dL (2.4-3.5); Glucose 91 mg/dL (83-110); Potassium 5.3 mmol/L (3.5-5.1); Protein, Total 5.9 g/dL (6.0-8.3); Sodium 138 mmol/L (136-145)
--- NOTE | 2018-06-12 14:14 | RAD ---
PORTABLE CHEST ONE VIEW: 06/12/2018 1:05 p.m. HISTORY: Altered mental status. Weakness. COMPARISON: 05/05/2018 FINDINGS: The heart size is normal. The lungs are hyperexpanded. No focal areas of consolidation, pneumothora rachel, mary pulmonary edema, or pleural effusions are identified. IMPRESSION: No radiographic evidence of acute cardiopulmonary process. POS: [facility]
--- NOTE | 2018-06-12 15:25 | PDOC.FPRHP ---
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 Patient at baseline is AOx2, today is AOx1, sister-in- law provides hx. She reports decline since April with worsening confusion and worsened respiratory status. She was hospitalized in March for a fall which is when she went home with O2. She was supposed to get a nebulizer machine for breathing treatments but was unable to get it. Today as stated above, she is not able to provide much hx due to increased respiratory effort, only able to speak in one-two word sentences and confusion AOx1. ROS asked to EAGLE who reports no recent chest pain, incontinent of bowel and bladder at baseline, no abd pain, and no fever/chills. ED Course: In the ED she received duonebs, Vancomycin, Zosyn, 1L NS, and IV Solumedrol - Allergies/Adverse Reactions Allergies Allergy/AdvReac Type Severity Reaction Status Date / Time No Known Drug Allergies Allergy Verified 06/12/18 19:41 - Home Medications Medication Instructions Recorded Confirmed Type Aspirin [Ray Chewable Aspirin] 81 mg PO DAILY 04/21/18 06/12/18 History Fluticasone/Vilanterol [Breo 1 inh IH DAILY 04/21/18 06/12/18 History Ellipta] Pravastatin Sodium 40 mg PO HS 04/21/18 06/12/18 History Folic Acid [Folvite] 1 mg PO DAILY tab 05/02/18 06/12/18 Rx Thiamine 100 mg PO DAILY tab 05/02/18 06/12/18 Rx ALPRAZolam [Xanax] 0.25 mg PO PRN PRN 06/12/18 06/12/18 History Famotidine [Pepcid] 20 mg PO DAILY 06/12/18 06/12/18 History Nebivolol HCl [Bystolic] 2.5 mg PO DAILY 06/12/18 06/12/18 History Sertraline HCl [Zoloft] 25 mg PO DAILY 06/12/18 06/12/18 History Teriparatide [Forteo] 20 mcg SC DAILY 06/12/18 06/12/18 History Comments: [id number] to bring home meds for reconciliation - History PMHx: 1. COPD 2. HTN 3. HLD 4. Depression 5. HFrEF PSHx: 1. Hysterectomy 2. R Hip fracture repair FHx: none reported Social: Has prior hx of tobacco and alcohol abuse, quit in March. Denies drug use. Currently lives at home with [id number], Aneta, unable to perform ADLs and unable to ambulate. - Review of Systems ROS unobtainable: other (Patient only able to provide one word answers. ROS discussed with EAGLE as documented in HPI.) - Vital signs BP: 161/84 HR: 103 RR: 33 Tmax: 97.6 Pox: 97% on 2L Wt: 45kg - Physical Exam -Constitutional: drowsy, falling asleep during conversation, increased work of breathing, thin, appears malnourished HEENT: normocephalic and atraumatic, no scleral icterus, grossly normal hearing , MMM -HEENT: arcus senilis -Neck: supraclavicular retractions Chest: no-tender to palpation Heart: no murmurs/rubs/gallops -Heart: tachycardic, 1+ b/l LE edema -Lungs: scattered wheezing with decreased air movement and increased work of breathing Abdomen: soft, non-tender, bowel sounds present -Abdomen: use of abdominal muscles to breath Musculoskeletal: normal tone Neurological: no focal deficit Skin: no rash/lesions Heme/Lymphatic: no unusual bruising or bleeding -Psychiatric: AOx1 FMR H&P: Results - Labs Result Diagrams: 06/13/18 04:07 06/13/18 04:07 Lab results: WBC 7.6 thou/uL (4.8-10.8) 06/12/18 13:05 Hgb 13.5 g/dL (12.0-16.0) 06/12/18 13:05 Hct 44.8 % (36.0-47.0) 06/12/18 13:05 MCV 109.0 fL (78.0-98.0) H 06/12/18 13:05 Plt Count 336 thou/uL (130-400) 06/12/18 13:05 Neutrophils % 69.7 % (42.0-75.0) 06/12/18 13:05 Sodium 138 mmol/L (136-145) 06/12/18 13:05 Potassium 5.3 mmol/L (3.5-5.1) H 06/12/18 13:05 Chloride 102 mmol/L (98-107) 06/12/18 13:05 Carbon Dioxide 27 mmol/L (23-31) 06/12/18 13:05 BUN 15 mg/dL (9.8-20.1) 06/12/18 13:05 Creatinine 0.62 mg/dL (0.6-1.1) 06/12/18 13:05 Glucose 91 mg/dL (83-110) 06/12/18 13:05 Lactic Acid 1.3 mmol/L (0.5-2.2) 06/12/18 13:05 Calcium 9.6 mg/dL (7.8-10.44) 06/12/18 13:05 Total Bilirubin 0.4 mg/dL (0.2-1.2) 06/12/18 13:05 AST 17 U/L (5-34) 06/12/18 13:05 ALT 11 U/L (8-55) 06/12/18 13:05 Alkaline Phosphatase 117 U/L (40-150) 06/12/18 13:05 Creatine Kinase 26 U/L (29-168) L 06/12/18 13:05 CK-MB (CK-2) 2.3 ng/mL (0-6.6) 06/12/18 13:05 B-Natriuretic Peptide 162.4 pg/mL (0-100) H 06/12/18 13:05 Serum Total Protein 5.9 g/dL (6.0-8.3) L 06/12/18 13:05 Albumin 3.3 g/dL (3.4-4.8) L 06/12/18 13:05 Urine Ketones 40 mg/dL (Negative) H 06/12/18 12:36 Urine Blood Trace (Negative) H 06/12/18 12:36 Urine Nitrite Negative (Negative) 06/12/18 12:36 Ur Leukocyte Esterase Negative (Negative) 06/12/18 12:36 Urine RBC 0-3 HPF (0-3) 06/12/18 12:36 Urine WBC 0-3 HPF (0-3) 06/12/18 12:36 Ur Squamous Epith Cells 7-10 HPF (0-3) H 06/12/18 12:36 Urine Bacteria None Seen HPF (None Seen) 06/12/18 12:36 - EKG Interpretation EKG: no peaked T waves, possible atrial enlargement, no ST segment or T wave changes - Radiology Interpretation Chest x-ray Status: image reviewed by me (severe COPD findings, flattened diaphragm, hyperinflated, no evidence of pleural effusions, possibly some cephalization) FMR H&P: A/P - Problem List (1) Acute respiratory failure with hypoxia and hypercapnia Current Visit: Yes Status: Acute Code(s): J96.01 - ACUTE RESPIRATORY FAILURE WITH HYPOXIA; J96.02 - ACUTE RESPIRATORY FAILURE WITH HYPERCAPNIA (2) COPD exacerbation Current Visit: Yes Status: Acute Code(s): J44.1 - CHRONIC OBSTRUCTIVE PULMONARY DISEASE W (ACUTE) EXACERBATION (3) Hyperkalemia Current Visit: Yes Status: Acute Code(s): E87.5 - HYPERKALEMIA (4) Hyperlipidemia Current Visit: Yes Status: Acute Code(s): E78.5 - HYPERLIPIDEMIA, UNSPECIFIED (5) Depression Current Visit: Yes Status: Acute Code(s): F32.9 - MAJOR DEPRESSIVE DISORDER , SINGLE EPISODE, UNSPECIFIED (6) COPD (chronic obstructive pulmonary disease) Current Visit: No Status: Chronic Comment: Continue Duonebs, Methylprednisolone, O2 support prn (7) HTN (hypertension) Current Visit: No Status: Chronic Code(s): I10 - ESSENTIAL (PRIMARY) HYPERTENSION Qualifiers: Hypertension type: essential hypertension Qualified Code(s): I10 - Essential (primary) hypertension Comment: Continue home BP regimen and monitor BP trend - Plan Acute Hypoxic, Hypercapnic Respiratory Failure 2/2 COPD Exacerbation - ABG 7.3/54.7/89.6/26.3, initiated Bipap in ED and will admit to IMCU - s/p Vanc and Zosyn in ED, will give Levaquin (06/12), duonebs q4h, albuterol q2h prn, prednisone - Continue BIPAP overnight, current settings 10/5 with 40% Fio2 - CXR without concern for PNA, blood cx and urine cx pending because she meets SIRs criteria - DNR code status, discussed this with MPOA who understands if patient worsens or needs further management than BIPAP can provide then we will not intubate. He is on board and understands the scenario. - with hx of orthopnea and 1+ pitting edema in b/l feet, consider small IV dose of lasix, will hold off for now and see how BIPAP goes. Hyperkalemia - no peaked T waves on EKG - repeat K on ABG is 3.8. - will repeat BMP in am. Macrocytosis - could be 2/2 prior alcohol abuse - B12 and folate pending COPD - will need to review meds before going home and get nebulizer HTN: - pending med rec, will restart home meds - initially elevated, decreased with BIPAP use HLD - pending med rec, will restart home meds Depression - pending med rec, will restart home meds. Deconditioning - Currently getting HH with PT, consult PT/OT - Consult Dietary - Recently declined hospice 1 week ago but will consider palliative consult tomorrow to discuss end of life care and goals VTE Ppx: Lovenox IVF: SL, s/p 1L NS in ED Code Status: DNR Dispo: likely stay >2 days. FMR H&P: Upper Level - Plan Date/Time: 06/12/18 1085 I, [], have evaluated this patient and agree with findings/plan as outlined by internet architect resident. Pertinent changes/additions are listed here. Attending Addendum - Attending Addendum Date/Time: 06/13/18 1050 I personally evaluated the patient and discussed the management with Dr. Miles. I saw the patient in the ER multiple times. I agree with and repeated the History, Examination, Assessment and Plan documented above with any addition or exceptions noted below. Start bipap and follow closely in IMCU.
[2018-06-12 15:55] LABS: Actual Bicarbonate (HCO3a) 26.3 mEq/L (22-28); Analyzer IN Cardio ER; CO2 Tension 54.7 mmHg (35.0-45.0); Calcium, Ionized 1.17 mmol/L (1.12-1.30); Carboxyhemoglobin (COHb) 0.5 gm% (0.0-3.0); Hemoglobin (Hb) 13.5 g/dL (12.0-16.0); O2 Tension (PaO2) 89.6 mmHg (> 70.0)
[2018-06-12 15:57] LABS: ALV-art Gradient 41.665 (0-20); Puncture Site RRA
--- NOTE | 2018-06-12 18:24 | PDOC.EVN ---
Event Note - Event Note Event Note: Discussed code status with JANNIEA, son, Jignesh, who again confirms his mothers wishes to be DNR.
[2018-06-12] MEDS ORDERED: Acetaminophen 325 MG TAB PO PRN (19:59)
[2018-06-12] MEDS ORDERED: Ondansetron ODT 4 MG TAB PO PRN (19:59)
[2018-06-12] MEDS ORDERED: Albuterol Sulfate 2.5 mg/3 ml Neb NEB PRN (19:59)
[2018-06-12 20:00] VITALS: BMI 15.9
[2018-06-13] MEDS ORDERED: ALPRAZolam 0.25 MG TAB PO PRN (03:12)
[2018-06-13 04:49] LABS: #Lymphocytes 0.5 thou/uL (1.20-3.40); #Monocytes 0.3 thou/uL (0.11-0.59); #Neutrophils 4.3 thou/uL (1.40-6.50); %Basophils 0.2 % (0.0-1.0); %Eosinophils 0.1 % (0.0-10.0); %Lymphocytes 9.5 % (21.0-51.0); %Monocytes 6.1 % (0.0-10.0); %Neutrophils 84.1 % (42.0-75.0); Hemoglobin 12.4 g/dL (12.0-16.0); Mean Corpuscular HGB CONC 30.4 g/dL (32.0-36.0); Mean Corpuscular Hemoglobin 32.8 pg (27.0-31.0); Mean Platelet Volume 7.3 fL (7.4-10.4); Platelet Count 322 thou/uL (130-400); RBC Distribution Width 14.4 % (11.5-14.5); Red Blood Cell (RBC) Count 3.78 mill/uL (4.20-5.40); White Blood Cell (WBC) Count 5.1 thou/uL (4.8-10.8)
[2018-06-13 04:57] LABS: Anion Gap 14 mmol/L (10-20); BUN (Urea Nitrogen) 12 mg/dL (9.8-20.1); Calc. Creatinine Clearance 45 mL/min (70-130); Calcium 9.1 mg/dL (7.8-10.44); Carbon Dioxide 29 mmol/L (23-31); Chloride 102 mmol/L (98-107); Estimated GFR-MDRD Greater than 90; Glucose 135 mg/dL (83-110); Potassium 4.8 mmol/L (3.5-5.1); Sodium 140 mmol/L (136-145)
--- NOTE | 2018-06-13 06:27 | PDOC.FM ---
- Subjective Subjective: Patient appears much improved from last night. She appears more comfortable. Xupjuu-[id number] at bedside and agrees. Was weaned off BIPAP at around 0300. Patient is quite drowsy this morning and refuses to wake up but easily responds to noxious stimuli. She denies any pain. Otherwise, unable to get much more information from her at this time. Will attempt to gather further info from patient during team rounds. - Objective MAR Reviewed: Yes Vital Signs & Weight: Vital Signs (12 hours) Temp Pulse Resp BP Pulse Ox 06/13/18 04:00 98.2 F 100 28 H 124/59 L 100 06/13/18 02:40 90 25 H 100 06/12/18 23:30 98.3 F 102 H 20 108/61 100 06/12/18 22:10 102 H 16 100 06/12/18 20:00 98 06/12/18 19:24 97.7 F 94 13 145/85 H 100 Weight Weight 39.553 kg I&O: 06/11/18 06/12/18 06/13/18 06:59 06:59 06:59 Intake Total 240 Balance 240 Result Diagrams: 06/13/18 04:07 06/13/18 04:07 <Eleonora Miles - Last Filed: 06/13/18 08:14> - Objective Vital Signs & Weight: Vital Signs (12 hours) Temp Pulse Resp BP Pulse Ox 06/13/18 10:51 116 H 22 H 100 06/13/18 08:00 100 06/13/18 07:37 95 22 H 100 06/13/18 07:26 98.4 F 99 20 119/70 100 06/13/18 04:00 98.2 F 100 28 H 124/59 L 100 06/13/18 02:40 90 25 H 100 06/12/18 23:30 98.3 F 102 H 20 108/61 100 Weight Admit Weight 39.553 kg Weight 39.553 kg I&O: 06/12/18 06/13/18 06/14/18 06:59 06:59 06:59 Intake Total 240 Balance 240 Result Diagrams: 06/13/18 04:07 06/13/18 04:07 <Daniel Ramos - Last Filed: 06/13/18 10:54> Phys Exam - Physical Examination Constitutional: NAD sleepy HEENT: moist MMs rhonchi at bases Cardiovascular: RRR, no significant murmur Gastrointestinal: soft, non-tender 1+ pitting edema b/l feet Neurological: moves all 4 limbs <Eleonora Miles - Last Filed: 06/13/18 08:14> Dx/Plan (1) Acute respiratory failure with hypoxia and hypercapnia Code(s): J96.01 - ACUTE RESPIRATORY FAILURE WITH HYPOXIA; J96.02 - ACUTE RESPIRATORY FAILURE WITH HYPERCAPNIA Status: Acute (2) COPD exacerbation Code(s): J44.1 - CHRONIC OBSTRUCTIVE PULMONARY DISEASE W (ACUTE) EXACERBATION Status: Acute (3) Hyperkalemia Code(s): E87.5 - HYPERKALEMIA Status: Acute (4) Hyperlipidemia Code(s): E78.5 - HYPERLIPIDEMIA, UNSPECIFIED Status: Acute (5) Depression Code(s): F32.9 - MAJOR DEPRESSIVE DISORDER, SINGLE EPISODE, UNSPECIFIED Status : Acute (6) COPD (chronic obstructive pulmonary disease) Status: Chronic (7) HTN (hypertension) Code(s): I10 - ESSENTIAL (PRIMARY) HYPERTENSION Status: Chronic Qualifiers: Hypertension type: essential hypertension Qualified Code(s): I10 - Essential (primary) hypertension - Plan Plan: Acute Hypoxic, Hypercapnic Respiratory Failure 2/2 COPD Exacerbation - ABG 7.3/54.7/89.6/26.3, currently off BIPAP, will attempt to transfer to the floor after team rounds if still tolerating NC - continue Levaquin (06/12), duonebs q4h, albuterol q2h prn, prednisone - CXR without concern for PNA, blood cx and urine cx pending because she initially met SIRs criteria, no growth to date - with hx of orthopnea and 1+ pitting edema in b/l feet, consider small IV dose of lasix Macrocytosis - could be 2/2 prior alcohol abuse - B12 and folate pending COPD - currently only on BreoEllipta at home - not on short acting beta agonist or anticholinergic - could benefit from duonebs at home - consult CM to help with getting nebulizer machine HTN: - hold BB at this time with BP in 110's, despite Nebivolol being selective BB - continue to monitor HLD - continue home Pravastatin Depression - continue home Sertraline 25mg Osteoporosis - continue home meds Deconditioning - Currently getting HH with PT, consult PT/OT - Consult Dietary - Recently declined hospice 1 week ago but will consider palliative consult tomorrow to discuss end of life care and goals Hyperkalemia resolved - no peaked T waves on EKG VTE Ppx: Lovenox IVF: SL, s/p 1L NS in ED Code Status: DNR Dispo: likely at least 1-2 more days. <Eleonora Miles - Last Filed: 06/13/18 08:14> (1) Acute respiratory failure with hypoxia and hypercapnia Code(s): J96.01 - ACUTE RESPIRATORY FAILURE WITH HYPOXIA; J96.02 - ACUTE RESPIRATORY FAILURE WITH HYPERCAPNIA Status: Acute (2) COPD exacerbation Code(s): J44.1 - CHRONIC OBSTRUCTIVE PULMONARY DISEASE W (ACUTE) EXACERBATION Status: Acute (3) Hyperkalemia Code(s): E87.5 - HYPERKALEMIA Status: Acute (4) Hyperlipidemia Code(s): E78.5 - HYPERLIPIDEMIA, UNSPECIFIED Status: Acute (5) Depression Code(s): F32.9 - MAJOR DEPRESSIVE DISORDER, SINGLE EPISODE, UNSPECIFIED Status : Acute (6) COPD (chronic obstructive pulmonary disease) Status: Chronic (7) HTN (hypertension) Code(s): I10 - ESSENTIAL (PRIMARY) HYPERTENSION Status: Chronic Qualifiers: Hypertension type: essential hypertension Qualified Code(s): I10 - Essential (primary) hypertension <Daniel Ramos - Last Filed: 06/13/18 10:54> Attending Addendum - Attending Addendum Date/Time: 06/13/18 1054 I personally evaluated the patient and discussed the management with Dr. Miles. I agree with and repeated the History, Examination, Assessment and Plan documented above with any addition or exceptions noted below. She is doing much better this AM. Appreciate pulm's input. <Daniel Ramos - Last Filed: 06/13/18 10:54>
[2018-06-13] MEDS ORDERED: Non-Formulary Item 1 EACH (Fluticasone/Vilanterol [Breo Ellipta] 1 INH) IH SCH (09:00)
[2018-06-13] MEDS ORDERED: Nebivolol HCl 2.5 MG TAB PO SCH (09:00)
[2018-06-13] MEDS ORDERED: Prevnar 13-Val Conj/PF 0.5 ML SYRINGE IM ONE (09:00)
[2018-06-13] MEDS: predniSONE 20 MG TAB PO SCH (09:47)
[2018-06-13] MEDS: Folic Acid 1 MG TAB PO SCH (09:47)
[2018-06-13] MEDS: Famotidine 20 MG TAB PO SCH (09:48)
[2018-06-13] MEDS: Enoxaparin Sodium 30 MG/0.3 ML SYRINGE SC SCH (09:49)
--- NOTE | 2018-06-13 11:30 | PQF ---
CLINICAL DOCUMENTATION IMPROVEMENT CLARIFICATION FORM: ICD-10 Updated PLEASE DO AN ADDENDUM TO THE PROGRESS NOTE WITH ANY DOCUMENTATION UPDATES OR ADDITIONS AND CARRY THROUGH TO DC SUMMARY. THANK YOU. DATE: 06/13/18 ATTN: DR. EASLEY / DR. MORENO Please exercise your independent, professional judgment in responding to the clarification form. Clinical indicators are provided on the bottom of this form for your review Please check appropriate box(s): [ x ] Acute On Chronic Respiratory Failure: [x ] with Hypoxia [ x ] with Hypercapnia [ ] Chronic Respiratory Failure [ ] with Hypoxia [ ] with Hypercapnia [ ] Acute Respiratory Failure [ ] with Hypoxia [ ] with Hypoxia [ ] Other diagnosis [ ] Unable to determine In addition, please specify: Present on Admission (POA): [ x ] Yes [ ] No [ ] Unable to determine For continuity of documentation, please document condition throughout progress notes and discharge summary. Thank You. CLINICAL INDICATORS - SIGNS / SYMPTOMS / LABS H&P: "ON HOME O2 2L AT BASELINE" PULSE 105 RR 34 RISKS: END STAGE COPD PRIOR TOBACCO ABUSE (H&P) TREATMENT: BIPAP DUONEBS (ER-PRESENT) ALBUTEROL NEBS (06/12-PRESENT) IV SOLU-MEDROL (ER) PO PREDISONE (STARTED 06/13) DULERA (STARTED 06/13) SAP Director Of Occupational Therapy [employer] Win[employer](This form is maintained as a part of the permanent medical record) 2014 [employer]. All Rights Reserved [email or web address] Office: [phone] [facility]
--- NOTE | 2018-06-13 11:55 | PQF ---
CLINICAL DOCUMENTATION IMPROVEMENT CLARIFICATION FORM: ICD-10 Updated PLEASE DO AN ADDENDUM TO THE PROGRESS NOTE WITH ANY DOCUMENTATION UPDATES OR ADDITIONS AND CARRY THROUGH TO DC SUMMARY. THANK YOU. Date: 06/13/18 ATTN: DR. EASLEY / DR. MORENO Please exercise your independent, professional judgment in responding to the clarification form. Clinical indicators are provided on the bottom of this form for your review Please check appropriate box(s): [ x ] Protein Calorie Malnutrition: [ ] Mild [ x ] Moderate [ ] Severe [ ] Other Malnutrition (please specify) __ [ ] Underweight without malnutrition [ x ] Cachexia [ ] Other diagnosis [ ] Unable to determine In addition, please specify: Present on Admission (POA): [ x ] Yes [ ] No [ ] Unable to determine CLINICAL INDICATORS - SIGNS / SYMPTOMS / LABS ER NOTE: "DECONDITIONING" H&P: "THIN, APPEARS MALNOURISHED" BMI 15.9 NURSING ASSESSMENT 06/13: "WEAK, CAN NOT WALK" "APPETITE AND WEIGHT CHANGES" "VERY LIMITED MOBILITY" DIETARY ASSESSMENT: 06/13: "1+ PITTING EDEMA, MUSCLE LOSS TO THE CLAVICLES, SHOULDER, THIGH, AND CALF, FAT LOSS TO ORBITALS" "12 % WEIGHT LOSS FROM PRIOR VISIT 04/16" RISKS: ADVANCED AGE END STAGE COPD (ER NOTE) TREATMENT: DIETARY CONSULT OT CONSULT PT CONSULT RECOMMENDATION FOR ENSURE ENLIVE TID (DIETARY ASSESSMENT 04/13) Moderate Malnutrition (in acute illness) Energy Intake: <75% of estimated energy requirement for > 7 days Weight Loss: 1-2%/1 week; 5%/ 1 month; 7.5%/3 months Other: mild body fat loss; mild muscle mass loss; mild fluid accumulation; Severe Malnutrition (in acute illness) Energy Intake: < 50% of estimated energy requirement for > 5 days Weight Loss: >1-2%/1 week; >5%/1 month; >7.5%/3 months Other: moderate body fat loss; moderate muscle mass loss; moderate- severe fluid accumulation; measurably reduced verification rep strength Moderate Malnutrition (in chronic illness) Energy Intake: <75% of estimated energy requirement for >1 month Weight Loss: 5%/1 month; 7.5%/3 months; 10%/6 months; 20%/1 year Other: mild body fat loss; mild muscle mass loss; mild fluid accumulation Severe Malnutrition (in chronic illness) Energy Intake: <75% of estimated energy requirement for >1 month Weight Loss: >5%/1 month; >7.5%/3 months; >10%/6 months; >20%/1 year Other: severe body fat loss; severe muscle mass loss; severe fluid accumulation ; measurably reduced verification rep strength (This form is maintained as a part of the permanent medical record) 2014 [employer]. All Rights Reserved [email or web address] Office: [phone] [facility]ITAL[facility]
--- NOTE | 2018-06-13 12:31 | CON ---
DATE OF CONSULTATION: 06/13/2018 SERVICE: Pulmonary Medicine. REASON FOR CONSULTATION: CU patient. HISTORY OF PRESENT ILLNESS: The patient is a 78-year-old -[place] female with past medical history significant for progressive weakness over a period of several months. Ultimately, this caused her to fall a couple of weeks ago. She broke her hip and this was subsequently fixed. Since being discharged from the hospital, the patient has only gotten out of bed to use the bathroom or to work with physical therapy twice per week. Outside of that, she is basically confined to a couch. Her family has been trying to motivate her and get her out of bed and do physical therapy type exercises with them on a daily basis if not more often, but the patient has absolutely no desire to get out of bed. She denies any current fevers or chills. She does not have any difficulty with breathing, nausea or vomiting. For the past week, she has been lying in the bed continuously and the family could manage her, so they brought her to the emergency department. Overnight, she was placed on BiPAP and respirations improved dramatically. She is much more alert and awake this morning. She appears comfortable. Otherwise, there has been no interval change to her condition. There are no reports of fevers or chills, nausea, vomiting, diarrhea, hot or red swollen joints, arthralgias, rashes, dysuria, or frequency. PAST MEDICAL HISTORY: 1. COPD. 2. Hypertension. 3. Dyslipidemia. 4. Major depressive disorder. 5. Dementia, suspected. PAST SURGICAL HISTORY: 1. Hysterectomy. 2. Repair of right hip fracture. FAMILY HISTORY: Noncontributory. SOCIAL HISTORY: Negative for alcohol, tobacco or illicit drug use. She has a remote history of alcohol and tobacco abuse, but quit in March. She has no exposure to chemicals, dust asbestos or tuberculosis. ALLERGIES: No known drug allergies. MEDICATIONS: Lists of her inpatient medications were reviewed. A couple of small updates were made. REVIEW OF SYSTEMS: General, head, ears, eyes, nose, throat, cardiovascular, respiratory, GI, , musculoskeletal, neurologic and skin is negative except as mentioned in the HPI. PHYSICAL EXAMINATION: VITAL SIGNS: Afebrile, pulse 116, blood pressure 153/64, respirations 16, saturation 100% on room air. GENERAL: Patient is awake, alert, no apparent distress. LUNGS: There is decreased air entry. There is a slightly prolonged expiratory phase. Dependent crackles are noted. No wheezing or rhonchi are present, though she is not really moving enough air to appreciate these things. HEART: Tachycardic. Regular. ABDOMEN: Soft, nontender, nondistended. Bowel sounds are positive. MUSCULOSKELETAL: No cyanosis or clubbing. Skin tenting is present in the bilateral lower extremities. There is no edema. NEUROLOGIC: Grossly nonfocal. She demonstrates diffuse weakness. LABORATORY DATA: Sodium 140, basic metabolic profile is otherwise unremarkable. BNP 162. Liver function studies are essentially unremarkable. CK is 26, troponin is unremarkable. TSH falls within the normal limits a couple of months ago. Vitamin B12 level was previously at the lower limits of normal. Ammonia was normal. Urinalysis is completely unremarkable with no significant pyuria. PH 7.30, pCO2 of 55, pO2 89. INR 1.0. Basic metabolic profile is stable/improving compared to prior. Her MCV has settled down nicely to 108. Blood cultures x2 and urine culture demonstrates no growth to date. IMAGING DATA: Chest x-ray demonstrates no acute cardiopulmonary abnormality. Lungs are hyperexpanded. ASSESSMENT: 1. Chronic obstructive pulmonary disease with acute exacerbation. 2. Acute hypercapnic respiratory failure. 3. Weakness and deconditioning. 4. Dementia, suspected. DISCUSSION AND PLAN: We will give the patient a single injection of B12, and initiate folate replacement. RPR will be obtained in order to round out our dementia evaluation. Imaging can be considered in the outpatient setting. If the patient ultimately was diagnosed with dementia, and/or has depression, I would recommend therapy for these things. If we cannot identify what is causing the patient's progressive deconditioning, hospice would be an appropriate disposition. At this point, I do not think it is safe for the patient to get back home in her previous care setting. As such, if she does not leave on hospice, we should consider prison placement. In the meantime, antibiotics, nebulized medications and steroids will be continued. Pulmonary will continue to follow. 70 minutes have been devoted to this patient in various activities. I personally reviewed all imaging studies and laboratory data noted within this document. For fifty percent of this time, I was interacting with the patient at the bedside or coordinating care with the care team. For the remainder of the time I was immediately available to the patient in the hospital unit. CRISTIN
[2018-06-13] MEDS ORDERED: Cyanocobalamin 1000 MCG/ML VIAL IM SCH (13:00)
[2018-06-13] MEDS ORDERED: ALPRAZolam 0.25 MG TAB PO SCH (14:15)
[2018-06-13] MEDS: Mometasone/Formoterol 120 PUFF INHALER INH SCH (18:57)
[2018-06-13] MEDS: Pravastatin Sodium 20 MG TAB PO SCH (20:33)
[2018-06-14 04:15] LABS: Anion Gap 10 mmol/L (10-20); BUN (Urea Nitrogen) 12 mg/dL (9.8-20.1); Calc. Creatinine Clearance 45 mL/min (70-130); Calcium 9.4 mg/dL (7.8-10.44); Carbon Dioxide 35 mmol/L (23-31); Chloride 100 mmol/L (98-107); Estimated GFR-MDRD Greater than 90; Glucose 106 mg/dL (83-110); Potassium 4.4 mmol/L (3.5-5.1); Sodium 141 mmol/L (136-145)
[2018-06-14 04:51] LABS: Syphilis Antibody Nonreactive (Nonreactive); Syphilis Antibody Index 0.03 S/CO (<1.00 Non-Reactive)
[2018-06-14] MEDS: ALPRAZolam 0.25 MG TAB PO PRN ×3 (05:16→19:54)
--- NOTE | 2018-06-14 06:59 | PDOC.FM ---
- Subjective Subjective: Patient is much more awake this morning although still remains confused. MMSE performed with score of 10 out of 30 signifying moderate dementia. She again had a panic episode where respiratory rate increased and was put on BIPAP for a short time and given Xanax which improved her state. She reports anxiety related to breathing status. Apparently watched her of similar lung condition and reports fear regarding her in a similar manner- reporting he did not look comfortable at the end of his days. She does endorse nightmares over this and his . She endorses anhedonia, depressed mood, poor appetite, and increased sleep since his . Otherwise today is feeling well and without complaints. She is eating breakfast at the time of my evaluation. Discussed her case with son last night and he desires to place her in a facility that can better suit her needs. - Objective MAR Reviewed: Yes Vital Signs & Weight: Vital Signs (12 hours) Temp Pulse Resp BP Pulse Ox 06/14/18 04:00 98.3 F 99 28 H 130/65 100 06/14/18 00:47 100 16 100 06/13/18 23:49 98.4 F 100 24 H 125/64 100 06/13/18 20:00 100 06/13/18 19:31 98.6 F 105 H 30 H 133/70 100 06/13/18 18:56 104 H 20 100 Weight Admit Weight 39.553 kg Weight 39.553 kg I&O: 06/12/18 06/13/18 06/14/18 06:59 06:59 06:59 Intake Total 240 540 Balance 240 540 Result Diagrams: 06/13/18 04:07 06/14/18 03:08 <Eleonora Miles - Last Filed: 06/14/18 10:29> - Objective Vital Signs & Weight: Vital Signs (12 hours) Temp Pulse Pulse Pulse Pulse Resp BP 06/14/18 13:14 110 H 28 H 06/14/18 12:00 06/14/18 11:48 105 H 110 H 106 H 127/66 06/14/18 11:20 97.8 F 106 H 31 H 06/14/18 11:18 97.8 F 106 H 31 H 06/14/18 08:00 06/14/18 07:39 97.8 F 99 31 H 06/14/18 07:30 90 20 06/14/18 04:00 98.3 F 99 28 H BP BP BP Pulse Ox Pulse Ox Pulse Ox Pulse Ox 06/14/18 13:14 100 06/14/18 12:00 100 06/14/18 11:48 138/81 153/76 H 100 100 100 06/14/18 11:20 127/66 100 06/14/18 11:18 127/66 100 06/14/18 08:00 100 06/14/18 07:39 138/79 100 06/14/18 07:30 100 06/14/18 04:00 130/65 100 Weight Admit Weight 39.553 kg Weight 39.553 kg I&O: 06/13/18 06/14/18 06/15/18 06:59 06:59 06:59 Intake Total 240 540 Balance 240 540 Result Diagrams: 06/13/18 04:07 06/14/18 03:08 <Daniel Ramos - Last Filed: 06/14/18 14:32> Phys Exam - Physical Examination Constitutional: NAD HEENT: moist MMs scattered wheezing, increased effort but breathing comfortably Cardiovascular: RRR, no significant murmur Gastrointestinal: soft, non-tender Musculoskeletal: no edema Neurological: moves all 4 limbs generalized weakness <Eleonora Miles - Last Filed: 06/14/18 10:29> Dx/Plan (1) Acute respiratory failure with hypoxia and hypercapnia Code(s): J96.01 - ACUTE RESPIRATORY FAILURE WITH HYPOXIA; J96.02 - ACUTE RESPIRATORY FAILURE WITH HYPERCAPNIA Status: Acute (2) COPD exacerbation Code(s): J44.1 - CHRONIC OBSTRUCTIVE PULMONARY DISEASE W (ACUTE) EXACERBATION Status: Acute (3) Hyperkalemia Code(s): E87.5 - HYPERKALEMIA Status: Acute (4) Hyperlipidemia Code(s): E78.5 - HYPERLIPIDEMIA, UNSPECIFIED Status: Acute (5) Depression Code(s): F32.9 - MAJOR DEPRESSIVE DISORDER, SINGLE EPISODE, UNSPECIFIED Status : Acute (6) COPD (chronic obstructive pulmonary disease) Status: Chronic (7) HTN (hypertension) Code(s): I10 - ESSENTIAL (PRIMARY) HYPERTENSION Status: Chronic Qualifiers: Hypertension type: essential hypertension Qualified Code(s): I10 - Essential (primary) hypertension - Plan Plan: Acute Hypoxic, Hypercapnic Respiratory Failure 2/2 COPD Exacerbation - ABG 7.3/54.7/89.6/26.3, currently off BIPAP, transfer to the medical floor - continue Levaquin (06/12), duonebs q4h, albuterol q2h prn, prednisone - CXR without concern for PNA, blood cx and urine cx pending because she initially met SIRs criteria, no growth to date Panic Attacks - possibly, as described to me, this is what it sounds like. - will increase sertraline to 50mg daily and continue prn xanax Macrocytosis - could be 2/2 prior alcohol abuse - B12 low normal, s/p B12 IM injection - Folate pending COPD - currently only on BreoEllipta at home - not on short acting beta agonist or anticholinergic - could benefit from duonebs at home - consult CM to help with getting nebulizer machine HTN: - hold BB at this time with BP in 110's, despite Nebivolol being selective BB - BP labile but seems to rise with agitation, will treat anxiety and hold off on BP med at this time. HLD - continue home Pravastatin Depression - increase home Sertraline to 50mg Osteoporosis - continue home meds Deconditioning - Currently getting HH with PT, consult PT/OT - Consult Dietary - Recently declined hospice 1 week ago but will consider palliative consult tomorrow to discuss end of life care and goals - Family would like to discuss placement in NH Hyperkalemia resolved - no peaked T waves on EKG VTE Ppx: Lovenox IVF: SL Code Status: DNR Dispo: likely at least 1-2 more days. <Eleonora Miles - Last Filed: 06/14/18 10:29> (1) Acute respiratory failure with hypoxia and hypercapnia Code(s): J96.01 - ACUTE RESPIRATORY FAILURE WITH HYPOXIA; J96.02 - ACUTE RESPIRATORY FAILURE WITH HYPERCAPNIA Status: Acute (2) COPD exacerbation Code(s): J44.1 - CHRONIC OBSTRUCTIVE PULMONARY DISEASE W (ACUTE) EXACERBATION Status: Acute (3) Hyperkalemia Code(s): E87.5 - HYPERKALEMIA Status: Acute (4) Hyperlipidemia Code(s): E78.5 - HYPERLIPIDEMIA, UNSPECIFIED Status: Acute (5) Depression Code(s): F32.9 - MAJOR DEPRESSIVE DISORDER, SINGLE EPISODE, UNSPECIFIED Status : Acute (6) COPD (chronic obstructive pulmonary disease) Status: Chronic (7) HTN (hypertension) Code(s): I10 - ESSENTIAL (PRIMARY) HYPERTENSION Status: Chronic Qualifiers: Hypertension type: essential hypertension Qualified Code(s): I10 - Essential (primary) hypertension <Daniel Ramos - Last Filed: 06/14/18 14:32> Attending Addendum - Attending Addendum Date/Time: 06/14/18 1431 I personally evaluated the patient and discussed the management with Dr. Miles. I agree with and repeated the History, Examination, Assessment and Plan documented above with any addition or exceptions noted below. <Daniel Ramos - Last Filed: 06/14/18 14:32>
[2018-06-14] MEDS: Mometasone/Formoterol 120 PUFF INHALER INH SCH ×2 (07:31→20:06)
[2018-06-14] MEDS: Folic Acid 1 MG TAB PO SCH (09:57)
[2018-06-14] MEDS: Enoxaparin Sodium 30 MG/0.3 ML SYRINGE SC SCH (09:57)
[2018-06-14] MEDS: predniSONE 20 MG TAB PO SCH (09:57)
[2018-06-14] MEDS: Famotidine 20 MG TAB PO SCH (09:57)
--- NOTE | 2018-06-14 14:33 | PRG ---
DATE OF SERVICE: 06/14/2018 SERVICE: Pulmonary Medicine. INTERVAL HISTORY: The patient is doing really well from a respiratory standpoint. She denies any cu rrent chest pain, fevers, chills, shortness of breath. She is breathing comfortably. She indicates that the year is 1960. Otherwise, there has been no interval change to her condition. She did not r equire BiPAP last night. PHYSICAL EXAMINATION: VITAL SIGNS: Afebrile, pulse 106, blood pressure 138/81, respirations 31, saturation 100% on 2 liter s nasal cannula. GENERAL: The patient is awake, alert, in no apparent distress. LUNGS: Poor air entry. There is a prolonged expiratory phase. No wheezing or crackles appreciated. HEART: Normal rate and regular. ABDOMEN: Soft, nontender, nondistended. Bowel sounds are positive. MUSCULOSKELETAL: No cyanosis or clubbing. SKIN: Tenting is present throughout. NEUROLOGIC: Nonfocal. LABORATORY DATA: Basic metabolic profile is essentially unremarkable. Bicarbonate 35. Her TSH is 1 .95, vitamin B12 is marginal at 350. Blood cultures x2 and urine culture are negative. ASSESSMENT: 1. Acute hypercapnic respiratory failure. 2. Chronic obstructive pulmonary disease with acute exacerbation. 3. Weakness with deconditioning. 4. Dementia, likely fairly advanced. DISCUSSION AND PLAN: The patient is stable for transition out of the IMCU to the medical floor. I a m okay with discontinuation of the antibiotics. Steroids can be stopped after 5 days. We will gino nue frequent nebulized medications. Frankly, I do not think she has dexterity, strength, or lung fun ction to get a powdered inhaler. On discharge from the hospital, consider switching her to nebulized long-acting beta agonist and corticosteroid. Pulmonary will continue to follow while she remains in -house but she will likely be ready for transition home in 24-48 hours.
[2018-06-14] MEDS: Pravastatin Sodium 20 MG TAB PO SCH (21:06)
--- NOTE | 2018-06-15 05:48 | PDOC.FM ---
- Subjective Subjective: Patient has no complaints this AM, eating breakfast. Had episode of anxiety this morning, with tachycardia to 150s. Improved with Xanax. - Objective Vital Signs & Weight: Vital Signs (12 hours) Temp Pulse Resp BP Pulse Ox 06/15/18 03:57 98.5 F 100 16 141/65 H 97 06/15/18 01:11 97.8 F 103 H 20 129/65 97 06/14/18 23:52 100 06/14/18 21:38 98 06/14/18 20:09 100 06/14/18 20:08 100 06/14/18 20:06 100 20 100 06/14/18 19:41 98.3 F 103 H 33 H 133/67 100 Weight Admit Weight 39.553 kg Weight 39.553 kg I&O: 06/13/18 06/14/18 06/15/18 06:59 06:59 06:59 Intake Total 240 540 500 Output Total 0 Balance 240 540 500 Result Diagrams: 06/13/18 04:07 06/15/18 05:28 <Whit Hernandez - Last Filed: 06/15/18 07:56> - Objective Vital Signs & Weight: Vital Signs (12 hours) Temp Pulse Resp BP Pulse Ox 06/15/18 07:57 97.9 F 119 H 18 140/78 100 06/15/18 06:49 111 H 28 H 06/15/18 06:37 111 H 28 H 06/15/18 03:57 98.5 F 100 16 141/65 H 97 06/15/18 01:11 97.8 F 103 H 20 129/65 97 06/14/18 23:52 100 Weight Admit Weight 39.553 kg Weight 39.553 kg I&O: 06/14/18 06/15/18 06/16/18 06:59 06:59 06:59 Intake Total 540 500 Output Total 0 Balance 540 500 Result Diagrams: 06/13/18 04:07 06/15/18 05:28 <Erika Caballero - Last Filed: 06/15/18 10:49> Phys Exam - Physical Examination Constitutional: NAD cachectic HEENT: moist MMs Neck: no nodes Respiratory: wheezing present Cardiovascular: RRR, no significant murmur Gastrointestinal: soft, non-tender, no distention, positive bowel sounds Musculoskeletal: no edema, pulses present Deviation from normal: Patient avoiding eye contact, appears upset but states everything okay <Whit Hernandez - Last Filed: 06/15/18 07:56> Dx/Plan (1) Acute respiratory failure with hypoxia and hypercapnia Code(s): J96.01 - ACUTE RESPIRATORY FAILURE WITH HYPOXIA; J96.02 - ACUTE RESPIRATORY FAILURE WITH HYPERCAPNIA Status: Acute (2) COPD exacerbation Code(s): J44.1 - CHRONIC OBSTRUCTIVE PULMONARY DISEASE W (ACUTE) EXACERBATION Status: Acute (3) Depression Code(s): F32.9 - MAJOR DEPRESSIVE DISORDER, SINGLE EPISODE, UNSPECIFIED Status : Chronic (4) Hyperkalemia Code(s): E87.5 - HYPERKALEMIA Status: Acute (5) Hyperlipidemia Code(s): E78.5 - HYPERLIPIDEMIA, UNSPECIFIED Status: Chronic (6) COPD (chronic obstructive pulmonary disease) Status: Chronic (7) HTN (hypertension) Code(s): I10 - ESSENTIAL (PRIMARY) HYPERTENSION Status: Chronic Qualifiers: Hypertension type: essential hypertension Qualified Code(s): I10 - Essential (primary) hypertension - Plan Plan: Acute Hypoxic, Hypercapnic Respiratory Failure 2/2 COPD Exacerbation - ABG 7.3/54.7/89.6/26.3, currently off BIPAP, transferred to the medical floor - continue Levaquin (06/12), duonebs q4h, albuterol q2h prn, prednisone - CXR without concern for PNA, blood cx and urine cx pending because she initially met SIRs criteria, NGTD Panic Attacks - sertraline was increased to 50mg daily, continue prn xanax Macrocytosis - could be 2/2 prior alcohol abuse - B12 low normal, s/p B12 IM injection - Folate pending COPD - currently only on BreoEllipta at home - not on short acting beta agonist or anticholinergic - could benefit from duonebs at home - consult CM to help with getting nebulizer machine - consult CM for placement HTN: - hold BB at this time with BP in 110's, despite Nebivolol being selective BB - BP labile but seems to rise with agitation, will treat anxiety and hold off on BP med at this time. HLD - continue home Pravastatin Depression - increase home Sertraline to 50mg Osteoporosis - continue home meds Deconditioning - Currently getting HH with PT, consult PT/OT - Consult Dietary - Recently declined hospice 1 week ago but will consider palliative consult tomorrow to discuss end of life care and goals - Family would like to discuss placement in [place] - consulted Case management Hyperkalemia resolved - no peaked T waves on EKG VTE Ppx: Lovenox IVF: SL Code Status: DNR Dispo: 1-3 days pending clinical picture <Whit Hernandez - Last Filed: 06/15/18 07:56> Attending Addendum - Attending Addendum Date/Time: 06/15/18 1047 I personally evaluated the patient and discussed the management with Dr. Hernandez. I agree with the History, Examination, Assessment and Plan documented above with any addition or exceptions noted below. The patient was resting comfortably during my visit. No need for bipap overnight. HR back to normal. Waiting on placement. <Erika Caballero - Last Filed: 06/15/18 10:49>
[2018-06-15 06:13] LABS: Anion Gap 10 mmol/L (10-20); BUN (Urea Nitrogen) 11 mg/dL (9.8-20.1); Calc. Creatinine Clearance 53 mL/min (70-130); Carbon Dioxide 33 mmol/L (23-31); Chloride 99 mmol/L (98-107); Estimated GFR-MDRD Greater than 90; Glucose 95 mg/dL (83-110); Potassium 3.9 mmol/L (3.5-5.1); Sodium 138 mmol/L (136-145)
[2018-06-15] MEDS: ALPRAZolam 0.25 MG TAB PO PRN ×3 (06:27→20:49)
[2018-06-15] MEDS: Mometasone/Formoterol 120 PUFF INHALER INH SCH ×2 (06:49→20:15)
[2018-06-15] MEDS: predniSONE 20 MG TAB PO SCH (10:09)
[2018-06-15] MEDS: Famotidine 20 MG TAB PO SCH (10:09)
[2018-06-15] MEDS: Folic Acid 1 MG TAB PO SCH (10:09)
[2018-06-15] MEDS: Enoxaparin Sodium 30 MG/0.3 ML SYRINGE SC SCH (10:10)
--- NOTE | 2018-06-15 14:06 | PRG ---
DATE OF SERVICE: 06/15/2018 OBJECTIVE: GENERAL: Ms. Carranza this morning is awake, alert, and responsive. She is confused though. VITALS: Sats are 99 on 2 L, respiratory rate 18, temperature 98, blood pressure . CHEST: No wheezing or crackles. CARDIAC: Normal S1, S2. ABDOMEN: Soft, no masses. LABORATORY DATA: Electrolytes are normal. IMPRESSION: Dementia and chronic obstructive pulmonary disease, stable. Continue aggressive PT, eventually placement.
[2018-06-15] MEDS: Pravastatin Sodium 20 MG TAB PO SCH (20:28)
[2018-06-16 05:20] LABS: Anion Gap 9 mmol/L (10-20); BUN (Urea Nitrogen) 11 mg/dL (9.8-20.1); Calc. Creatinine Clearance 51 mL/min (70-130); Calcium 8.6 mg/dL (7.8-10.44); Carbon Dioxide 34 mmol/L (23-31); Chloride 100 mmol/L (98-107); Estimated GFR-MDRD Greater than 90; Glucose 93 mg/dL (83-110); Sodium 139 mmol/L (136-145)
--- NOTE | 2018-06-16 05:46 | PDOC.FM ---
- Subjective Subjective: Patient is feeling well this morning, states no chest pain or headache. Nursing states that she came in wearing a nicotine patch. - Objective Vital Signs & Weight: Vital Signs (12 hours) Temp Pulse Resp BP BP Pulse Ox 06/16/18 04:21 98.4 F 95 18 134/67 99 06/15/18 23:17 99 06/15/18 23:15 97.6 F 97 20 128/59 L 100 06/15/18 20:45 99 06/15/18 20:36 98.1 F 103 H 18 125/58 L 99 06/15/18 20:17 100 06/15/18 20:16 100 06/15/18 20:15 100 Weight Admit Weight 39.553 kg Weight 39.553 kg I&O: 06/14/18 06/15/18 06/16/18 06:59 06:59 06:59 Intake Total 540 500 Output Total 0 Balance 540 500 Result Diagrams: 06/13/18 04:07 06/16/18 04:34 <Whit Hernandez - Last Filed: 06/16/18 07:22> - Objective Vital Signs & Weight: Vital Signs (12 hours) Temp Pulse Resp BP BP Pulse Ox 06/16/18 14:00 95 28 H 99 06/16/18 11:40 98.4 F 103 H 20 139/62 97 06/16/18 08:00 100 06/16/18 07:31 98.1 F 99 18 126/69 100 06/16/18 06:14 98 24 H 100 06/16/18 04:21 98.4 F 95 18 134/67 99 Weight Admit Weight 39.553 kg Weight 39.553 kg I&O: 06/15/18 06/16/18 06/17/18 06:59 06:59 06:59 Intake Total 500 Output Total 0 Balance 500 Result Diagrams: 06/13/18 04:07 06/16/18 04:34 <Erika Caballero - Last Filed: 06/16/18 14:36> Phys Exam - Physical Examination Constitutional: NAD receiving nebulizer Respiratory: wheezing present expiratory wheeze Cardiovascular: RRR, no significant murmur Gastrointestinal: soft, non-tender, positive bowel sounds Musculoskeletal: no edema, pulses present Neurological: moves all 4 limbs Deviation from normal: flat affect <Buse,Whit - Last Filed: 06/16/18 07:22> Dx/Plan (1) Acute respiratory failure with hypoxia and hypercapnia Code(s): J96.01 - ACUTE RESPIRATORY FAILURE WITH HYPOXIA; J96.02 - ACUTE RESPIRATORY FAILURE WITH HYPERCAPNIA Status: Acute (2) COPD exacerbation Code(s): J44.1 - CHRONIC OBSTRUCTIVE PULMONARY DISEASE W (ACUTE) EXACERBATION Status: Acute (3) Depression Code(s): F32.9 - MAJOR DEPRESSIVE DISORDER, SINGLE EPISODE, UNSPECIFIED Status : Chronic (4) Hyperkalemia Code(s): E87.5 - HYPERKALEMIA Status: Acute (5) Hyperlipidemia Code(s): E78.5 - HYPERLIPIDEMIA, UNSPECIFIED Status: Chronic (6) COPD (chronic obstructive pulmonary disease) Status: Chronic (7) HTN (hypertension) Code(s): I10 - ESSENTIAL (PRIMARY) HYPERTENSION Status: Chronic Qualifiers: Hypertension type: essential hypertension Qualified Code(s): I10 - Essential (primary) hypertension - Plan Plan: Acute Hypoxic, Hypercapnic Respiratory Failure 2/2 COPD Exacerbation - ABG 7.3/54.7/89.6/26.3, currently off BIPAP, transferred to the medical floor - continue Levaquin (06/12), duonebs q4h, albuterol q2h prn, prednisone - CXR without concern for PNA, blood cx and urine cx pending because she initially met SIRs criteria, NGTD Panic Attacks - sertraline was increased to 50mg daily, continue prn xanax Macrocytosis - could be 2/2 prior alcohol abuse - B12 low normal, s/p B12 IM injection - Folate pending COPD - currently only on BreoEllipta at home - not on short acting beta agonist or anticholinergic - could benefit from duonebs at home - consult CM to help with getting nebulizer machine - consult CM for placement HTN: - hold BB at this time with BP in 110's, despite Nebivolol being selective BB - BP labile but seems to rise with agitation, will treat anxiety and hold off on BP med at this time. HLD - continue home Pravastatin Depression - increased home Sertraline to 50mg Osteoporosis - continue home meds Deconditioning - PT/OT following - Dietary following - Recently declined hospice 1 week ago but will consider palliative consult to discuss end of life care and goals - Family would like to discuss placement in [place] - consulted Case management Hyperkalemia resolved - no peaked T waves on EKG Nicotine addiction -Came in wearing nicotine patch, asking for patch last night -Will start on low dose nicotine patch VTE Ppx: Lovenox IVF: SL Code Status: DNR Dispo: 1-2 days, pending placement <Whit Hernandez - Last Filed: 06/15/18 07:56> <Whit Hernandez - Last Filed: 06/16/18 07:22> Attending Addendum - Attending Addendum Date/Time: 06/16/18 9164 I personally evaluated the patient and discussed the management with Dr. Hernandez. I agree with the History, Examination, Assessment and Plan documented above with any addition or exceptions noted below. The patient was resting comfortably. Family at bedside. I/O state her intake is improving. Continue PT. Breathing appears to be back to baseline. Waiting on placement. <Erika Caballero - Last Filed: 06/16/18 14:36>
[2018-06-16] MEDS: Mometasone/Formoterol 120 PUFF INHALER INH SCH ×2 (06:16→19:49)
[2018-06-16] MEDS: Enoxaparin Sodium 30 MG/0.3 ML SYRINGE SC SCH (09:18)
[2018-06-16] MEDS: Folic Acid 1 MG TAB PO SCH (09:20)
[2018-06-16] MEDS: predniSONE 20 MG TAB PO SCH (09:20)
[2018-06-16] MEDS: Famotidine 20 MG TAB PO SCH (09:20)
[2018-06-16] MEDS: Nicotine 14 MG PATCH TD SCH (09:24)
[2018-06-16] MEDS: ALPRAZolam 0.25 MG TAB PO PRN (21:31)
[2018-06-16] MEDS: Pravastatin Sodium 20 MG TAB PO SCH (21:31)
--- NOTE | 2018-06-16 22:24 | PRG ---
DATE OF SERVICE: 06/16/2018 SUBJECTIVE: This morning, she is better, demented lady. OBJECTIVE: VITAL SIGNS: Sats 97% on room air, respirations 20, temperature 98, pulse 103, blood pressure 130/62. CHEST: No wheezing. CARDIAC: Normal S1, S2. No gallops or masses. IMPRESSION: 1. Chronic obstructive pulmonary disease, stable. 2. Renal failure, stable. 3. Depression. Continue neb treatment, PT. DISPOSITION: [facility]
--- NOTE | 2018-06-17 05:02 | PDOC.FM ---
- Subjective Subjective: Ms. Carranza has no complaints today. Denies SOB, difficulty breathing. Reports she feels she has improved greatly. - Objective MAR Reviewed: Yes Vital Signs & Weight: Vital Signs (12 hours) Temp Pulse Resp BP Pulse Ox 06/17/18 00:26 99 06/17/18 00:00 99.6 F 102 H 20 119/58 L 98 06/16/18 20:00 98.0 F 109 H 24 H 138/68 100 06/16/18 19:52 100 22 H 100 06/16/18 19:49 100 22 H 100 Weight Admit Weight 39.553 kg Weight 39.553 kg I&O: 06/15/18 06/16/18 06/17/18 06:59 06:59 06:59 Intake Total 500 Output Total 0 Balance 500 Result Diagrams: 06/13/18 04:07 06/17/18 05:36 <Елена Bustillo - Last Filed: 06/17/18 08:57> - Objective Vital Signs & Weight: Vital Signs (12 hours) Temp Pulse Resp BP BP Pulse Ox 06/17/18 07:38 98.7 F 105 H 20 147/68 H 100 06/17/18 06:35 96 20 98 06/17/18 04:00 98.2 F 99 16 138/80 99 06/17/18 00:26 99 06/17/18 00:00 99.6 F 102 H 20 119/58 L 98 Weight Admit Weight 39.553 kg Weight 39.553 kg Result Diagrams: 06/13/18 04:07 06/17/18 05:36 <Zach Bullock - Last Filed: 06/17/18 11:07> Phys Exam - Physical Examination Constitutional: NAD Respiratory: no wheezing, clear to auscultation bilateral Cardiovascular: RRR, no significant murmur Gastrointestinal: soft, non-tender, no distention Musculoskeletal: no edema, pulses present Neurological: normal sensation Psychiatric: normal affect Skin: normal turgor, cap refill <2 seconds <Елена Bustillo - Last Filed: 06/17/18 08:57> Dx/Plan (1) Acute respiratory failure with hypoxia and hypercapnia Code(s): J96.01 - ACUTE RESPIRATORY FAILURE WITH HYPOXIA; J96.02 - ACUTE RESPIRATORY FAILURE WITH HYPERCAPNIA Status: Acute (2) COPD exacerbation Code(s): J44.1 - CHRONIC OBSTRUCTIVE PULMONARY DISEASE W (ACUTE) EXACERBATION Status: Acute (3) Panic attack Code(s): F41.0 - PANIC DISORDER [EPISODIC PAROXYSMAL ANXIETY] Status: Acute (4) Hyperkalemia Code(s): E87.5 - HYPERKALEMIA Status: Resolved (5) Depression Code(s): F32.9 - MAJOR DEPRESSIVE DISORDER, SINGLE EPISODE, UNSPECIFIED Status : Chronic (6) Hyperlipidemia Code(s): E78.5 - HYPERLIPIDEMIA, UNSPECIFIED Status: Chronic (7) HTN (hypertension) Code(s): I10 - ESSENTIAL (PRIMARY) HYPERTENSION Status: Chronic Qualifiers: Hypertension type: essential hypertension Qualified Code(s): I10 - Essential (primary) hypertension (8) Osteoporosis Code(s): M81.0 - AGE-RELATED OSTEOPOROSIS W/O CURRENT PATHOLOGICAL FRACTURE Status: Chronic - Plan Plan: Acute Hypoxic, Hypercapnic Respiratory Failure 2/2 COPD Exacerbation - Off bipap, satting well on 2L NC, will wean O2 today - On Levaquin (06/12), duonebs q4h, albuterol q2h prn, prednisone. Will d/c prednisone and levaquin today as pt has completed 5 day course. - initially met SIRs criteria, blood/urine cx neg @ 48 hrs Panic Attacks - sertraline was increased to 50mg daily, continue prn xanax Macrocytosis - could be 2/2 prior alcohol abuse - B12 low normal, s/p B12 IM injection - Folate pending (1 week sendout lab) COPD - currently only on BreoEllipta at home - not on short acting beta agonist or anticholinergic - could benefit from duonebs at home - consult CM to help with getting nebulizer machine HTN: - hold BB at this time with BP in 110's, despite Nebivolol being selective BB - BP labile but seems to rise with agitation, will treat anxiety and hold off on BP med at this time. HLD - continue home Pravastatin Depression - increased home Sertraline to 50mg Osteoporosis - continue home meds Deconditioning - PT/OT following - Dietary following - Recently declined hospice, palliative care consulted - Family would like to discuss placement in [place] - consulted Case management Hyperkalemia resolved - no peaked T waves on EKG Nicotine addiction -Continue low dose nicotine patch VTE Ppx: Lovenox IVF: SL Code Status: DNR Dispo: Pending placement in [place] <Елена Bustillo - Last Filed: 06/17/18 08:57> Attending Addendum - Attending Addendum Date/Time: 06/17/18 1106 I personally evaluated the patient and discussed the management with Dr. Bustillo. I agree with the History, Examination, Assessment and Plan documented above with any addition or exceptions noted below. Doing well and stable this morning. On baseline O2 requirement. Denies complaints. She has completed course of abx and steroids for her COPD exacerbation. Her picture more c/w acute on chronic hypoxia. Will work to arrange placement with today. <Zach Bullock - Last Filed: 06/17/18 11:07>
[2018-06-17 06:05] LABS: Anion Gap 10 mmol/L (10-20); BUN (Urea Nitrogen) 12 mg/dL (9.8-20.1); Calc. Creatinine Clearance 47 mL/min (70-130); Calcium 9.1 mg/dL (7.8-10.44); Carbon Dioxide 29 mmol/L (23-31); Chloride 102 mmol/L (98-107); Estimated GFR-MDRD Greater than 90; Glucose 81 mg/dL (83-110); Potassium 3.9 mmol/L (3.5-5.1); Sodium 137 mmol/L (136-145)
[2018-06-17] MEDS: Mometasone/Formoterol 120 PUFF INHALER INH SCH ×2 (06:51→18:40)
[2018-06-17] MEDS: predniSONE 20 MG TAB PO SCH (09:57)
[2018-06-17] MEDS: Enoxaparin Sodium 30 MG/0.3 ML SYRINGE SC SCH (09:57)
[2018-06-17] MEDS: Famotidine 20 MG TAB PO SCH (09:58)
[2018-06-17] MEDS: Folic Acid 1 MG TAB PO SCH (09:58)
[2018-06-17] MEDS: Nicotine 14 MG PATCH TD SCH (10:06)
[2018-06-17] MEDS ORDERED: Nebivolol HCl 2.5 MG TAB PO SCH (11:00)
[2018-06-17] MEDS: Pravastatin Sodium 20 MG TAB PO SCH (20:22)
[2018-06-17] MEDS: Teriparatide [Forteo] 20 MCG SC SCH ×2 (22:41→22:42)
[2018-06-18] MEDS: Teriparatide [Forteo] 20 MCG SC SCH (01:15)
--- NOTE | 2018-06-18 05:44 | PDOC.FM ---
- Subjective Subjective: Ms. Carranza feels well this morning. She has no complaints. Has been working with PT. Family member believes she has not had a BM in the past week and requests something for that. - Objective MAR Reviewed: Yes Vital Signs & Weight: Vital Signs (12 hours) Temp Pulse Resp BP Pulse Ox 06/18/18 04:00 98.6 F 96 18 137/63 100 06/18/18 00:36 99 18 100 06/18/18 00:00 98.0 F 103 H 18 155/67 H 98 06/17/18 20:20 100 06/17/18 20:00 97.7 F 104 H 19 132/61 100 06/17/18 18:40 102 H 18 99 06/17/18 18:36 102 H 18 99 06/17/18 18:06 94 L Weight Admit Weight 39.553 kg Weight 39.553 kg Result Diagrams: 06/13/18 04:07 06/18/18 05:16 <Елена Bustillo - Last Filed: 06/18/18 06:47> - Objective Vital Signs & Weight: Vital Signs (12 hours) Temp Pulse Resp BP Pulse Ox 06/18/18 07:43 97.9 F 95 14 140/65 99 06/18/18 06:20 99 18 98 06/18/18 04:00 98.6 F 96 18 137/63 100 06/18/18 00:36 99 18 100 06/18/18 00:00 98.0 F 103 H 18 155/67 H 98 Weight Admit Weight 39.553 kg Weight 39.553 kg I&O: 06/17/18 06/18/18 06/19/18 06:59 06:59 06:59 Intake Total 75 Balance 75 Result Diagrams: 06/13/18 04:07 06/18/18 05:16 <Zach Bullock - Last Filed: 06/18/18 10:40> Phys Exam - Physical Examination Constitutional: NAD Respiratory: no wheezing, clear to auscultation bilateral (decreased air movement) Cardiovascular: RRR, no significant murmur Gastrointestinal: soft, non-tender, no distention, positive bowel sounds Musculoskeletal: no edema Neurological: non-focal (resting UE tremor) Psychiatric: normal affect Skin: normal turgor, cap refill <2 seconds <Елена Bustillo - Last Filed: 06/18/18 06:47> Dx/Plan (1) Acute respiratory failure with hypoxia and hypercapnia Code(s): J96.01 - ACUTE RESPIRATORY FAILURE WITH HYPOXIA; J96.02 - ACUTE RESPIRATORY FAILURE WITH HYPERCAPNIA Status: Acute (2) COPD exacerbation Code(s): J44.1 - CHRONIC OBSTRUCTIVE PULMONARY DISEASE W (ACUTE) EXACERBATION Status: Acute (3) Panic attack Code(s): F41.0 - PANIC DISORDER [EPISODIC PAROXYSMAL ANXIETY] Status: Acute (4) Hyperkalemia Code(s): E87.5 - HYPERKALEMIA Status: Resolved (5) Depression Code(s): F32.9 - MAJOR DEPRESSIVE DISORDER, SINGLE EPISODE, UNSPECIFIED Status : Chronic (6) Hyperlipidemia Code(s): E78.5 - HYPERLIPIDEMIA, UNSPECIFIED Status: Chronic (7) HTN (hypertension) Code(s): I10 - ESSENTIAL (PRIMARY) HYPERTENSION Status: Chronic Qualifiers: Hypertension type: essential hypertension Qualified Code(s): I10 - Essential (primary) hypertension (8) Osteoporosis Code(s): M81.0 - AGE-RELATED OSTEOPOROSIS W/O CURRENT PATHOLOGICAL FRACTURE Status: Chronic - Plan Plan: Acute Hypoxic, Hypercapnic Respiratory Failure 2/2 COPD Exacerbation - Off bipap, satting well on 2L NC - Levaquin and prednisone (06/12-) - transition duonebs q6h to prn to assess requirement, albuterol q2h prn, breo bid - initially met SIRs criteria, blood/urine cx negative Constipation - miralax prn Panic Attacks - sertraline was increased to 50mg daily, continue prn xanax Macrocytosis - could be 2/2 prior alcohol abuse - B12 low normal, s/p B12 IM injection - Folate pending (1 week sendout lab) COPD - currently only on BreoEllipta at home - not on short acting beta agonist or anticholinergic - could benefit from duonebs at home - consult CM to help with getting nebulizer machine Deconditioning - PT/OT following - Dietary following - Recently declined hospice, palliative care consulted - Family would like to discuss placement in [place] - consulted Case management HTN: - Continue home Nebivolol - VSS HLD - continue home Pravastatin Depression - increased home Sertraline to 50mg Osteoporosis - home med forteo non-formulary Hyperkalemia resolved - no peaked T waves on EKG Nicotine addiction -Continue low dose nicotine patch VTE Ppx: Lovenox IVF: SL Code Status: DNR Dispo: Pending placement in [place] <Елена Bustillo - Last Filed: 06/18/18 06:47> Attending Addendum - Attending Addendum Date/Time: 06/18/18 1039 I personally evaluated the patient and discussed the management with Dr. Bustillo. I agree with the History, Examination, Assessment and Plan documented above with any addition or exceptions noted below. Patient here for treatment of COPD exacerbation and acute on chronic hypoxic resp failure. Doing well and stable on current O2. Awaiting placement to outside facility. Continue PT while in house. <Zach Bullock - Last Filed: 06/18/18 10:40>
[2018-06-18 05:47] LABS: Anion Gap 9 mmol/L (10-20); BUN (Urea Nitrogen) 13 mg/dL (9.8-20.1); Calc. Creatinine Clearance 50 mL/min (70-130); Carbon Dioxide 32 mmol/L (23-31); Chloride 102 mmol/L (98-107); Estimated GFR-MDRD Greater than 90; Glucose 94 mg/dL (83-110); Potassium 4.1 mmol/L (3.5-5.1); Sodium 139 mmol/L (136-145)
[2018-06-18] MEDS: Mometasone/Formoterol 120 PUFF INHALER INH SCH (06:20)
[2018-06-18] MEDS ORDERED: Polyethylene Glycol 3350 17 GM Packet PO PRN (06:46)
[2018-06-18] MEDS ORDERED: Nebivolol HCl 2.5 MG TAB PO SCH (09:00)
[2018-06-18] MEDS: Nicotine 14 MG PATCH TD SCH (09:21)
[2018-06-18] MEDS: Enoxaparin Sodium 30 MG/0.3 ML SYRINGE SC SCH (09:23)
[2018-06-18] MEDS: Famotidine 20 MG TAB PO SCH (09:27)
[2018-06-18] MEDS: Folic Acid 1 MG TAB PO SCH (09:27)
--- NOTE | 2018-06-18 10:15 | PRG ---
DATE OF SERVICE: 06/18/2018 SERVICE: Pulmonary Medicine INTERVAL HISTORY: The patient reports today that her tremors are actually a little improved. She denies any chest pain, fevers, or chills. She denies having any shortness of breath. She continues working with physical therapy, but remains quite weak. PHYSICAL EXAMINATION: VITAL SIGNS: Afebrile, pulse 95, blood pressure 140/65, respirations 14, saturation 99% on 2 liters nasal cannula. GENERAL: The patient is awake, alert, in no apparent distress. LUNGS: Decreased air entry. There is a slightly prolonged expiratory phase, but today I do not appreciate wheezing, rhonchi or crackles. HEART: Normal rate, regular. ABDOMEN: Soft, nontender, nondistended. Bowel sounds are positive. MUSCULOSKELETAL: No cyanosis or clubbing. There is no pitting in the bilateral lower extremities. NEUROLOGIC: Grossly nonfocal. LABORATORY DATA: Basic metabolic profile is essentially unremarkable. Creatinine 0.59. Procalcitonin 0.03. Blood cultures x2 and urine cultures are negative. ASSESSMENT: 1. Acute hypercapnic respiratory failure. 2. Chronic obstructive pulmonary disease with acute exacerbation, status post full course of therapy. 3. Weakness with deconditioning. 4. Dementia. DISCUSSION AND PLAN: The patient remains stable for transition out of the hospital. Pulmonary Critical Care will continue to follow intermittently during this hospital stay. Please call with additional questions or concerns moving forward. CRISTIN
--- NOTE | 2018-06-18 10:31 | PRG ---
DATE OF SERVICE: 06/17/2018 SERVICE: Pulmonary Medicine. INTERVAL HISTORY: The patient is doing really well from a respiratory standpoint. She is breathing comfortably. She has a little bit of a tremor. She indicates this has been present for a couple of weeks. Otherwise, there has been no interval change to her condition. She denies any chest pain, na usea, or vomiting. She remains weak, but is working with physical therapy. PHYSICAL EXAMINATION: VITAL SIGNS: Afebrile, pulse 95, blood pressure 140/65, respirations 14, saturation 99% on 1-liter n jaclyn cannula. GENERAL: The patient is awake, alert, in no apparent distress. LUNGS: Reduced air entry with a slightly prolonged expiratory phase. I do not appreciate any wheezi ng or rhonchi. There are no crackles present. HEART: Normal rate, regular. ABDOMEN: Soft, nontender, nondistended. Bowel sounds are positive. MUSCULOSKELETAL: No cyanosis or clubbing. There is no pitting in the bilateral lower extremities. NEUROLOGIC: Grossly nonfocal. LABORATORY DATA: Basic metabolic profile is essentially unremarkable. Procalcitonin is 0.03. TSH w as previously 1.9. Blood cultures x2 and urine culture unremarkable. ASSESSMENT: 1. Acute hypercapnic respiratory failure, resolved. 2. Chronic obstructive pulmonary disease with acute exacerbation, resolved. 3. Weakness with deconditioning. 4. Dementia. DISCUSSION AND PLAN: [facility] placement is currently pending. Pulmonary will continue to follow , intermittently during this hospital stay. On discharge from the hospital, she should be transition ed to inhaled nebulized therapy if possible, because I do not believe that she has the strength or de xterity to get an HFA or other powdered inhaler at this time.
[2018-06-18 16:19] VITALS: BP 173/80; TEMP 98.3
--- NOTE | 2018-06-18 23:59 | DIS-2 ---
DATE OF ADMISSION: 06/12/2018 DATE OF DISCHARGE: 06/18/2018 RESIDENT: Елена Bustillo D.O. ADMITTING ATTENDING: Daniel Ramos M.D. DISCHARGE ATTENDING: Zach Bullock M.D. CONSULTATIONS: Hudson Orozco M.D., Pulmonology. PROCEDURES: None. PRIMARY DIAGNOSES: 1. Acute hypoxic hypercapnic respiratory failure secondary to chronic obstructive pulmonary disease exacerbation. 2. Constipation. 3. Panic attacks. 4. Macrocytosis. 5. Chronic obstructive pulmonary disease. 6. Deconditioning. 7. Hyperkalemia. SECONDARY DIAGNOSES: Hypertension, hyperlipidemia, depression, osteoporosis, nicotine addiction. DISCHARGE MEDICATIONS: 1. Breo Ellipta 1 inhaled daily. 2. Pravastatin 40 mg p.o. at bedtime. 3. Aspirin 81 mg p.o. daily. 4. Folic acid 1 mg p.o. daily. 5. Thiamine 100 mg p.o. daily. 6. Alprazolam 0.25 mg p.o. p.r.n. 7. Famotidine 20 mg p.o. daily. 8. Nebivolol 2.5 mg p.o. daily. 9. Sertraline 50 mg p.o. daily. 10. Teriparatide 20 mcg subcu daily. 11. DuoNeb 3 mL nebs q.6 hours p.r.n. 12. MiraLax 17 grams p.o. daily p.r.n. DISCONTINUED MEDICATIONS: Sertraline 25 mg p.o. daily. HISTORY OF PRESENT ILLNESS: The patient is a 78-year-old female that presented with a 3-day history of worsening shortness of breath, cough and overall decline including decreased appetite, thirst and decreased mobility. The patient was started on BiPAP in the Emergency Department due to acute hypoxi c hypercapnic respiratory failure and was admitted to the [facility]. The patient was started on antibioti cs. Given one dose of vancomycin and Zosyn in the ED. Then transitioned to Levaquin that was starte d on 06/12/2018 and discontinued on the . The patient additionally received DuoNeb and prednison e for a 5-day course. Chest x-ray was without concern for pneumonia. Blood and urine cultures drawn were negative. The patient maintained DNR code status throughout hospitalization. Hyperkalemia on admission with no EKG changes, which resolved. Macrocytosis without anemia noted, could be possibly due to prior alcohol abuse. The patient was continued on her home meds. Her home sertraline was inc reased from 25 to 50 mg as the patient had anxiety at different periods throughout hospitalization. Palliative Care had discussions with the patient and family about goals of care. The option of hospi ce was denied and it was preferred for the patient to go to a correction facility. The patient' s respiratory status continued to improve. She was transitioned to the medical floor and was off BiP AP. The patient at the time of discharge was satting well on 2 liters or less. At times, she was no adrian to be satting 94% on room air. The patient will be discharged to a swing bed for continued physi jennifer therapy as the patient continues to have deconditioning. The patient was stable at the time of d ischarge. DISCHARGE INSTRUCTIONS: 1. Location: Swing bed. 2. Diet: Heart healthy. 3. Activity: As tolerated. 4. Followup: With PCP after discharge from swing bed.
[2018-06-19 18:10] LABS: Folate,Hemolysate 401.5 ng/mL (Not Estab.); Hematocrit 38.2 % (34.0-46.6); RBC Folate Test Component 1051 ng/mL (>498)
== END 2018-06-18 18:16 | disposition swing bed (61) | DRG 189 ==
LOC: ERS 12:12 → IMCU/EMU 19:15 → 2SE 06-14 21:38
PROVIDERS: ADMIT Family Medicine; ATTEND Family Medicine
PROC: 5A09357 Assistance with Respiratory Ventilation, Less than 24 Consecutive Hours, Continuous Positive Airway Pressure (ICD-10-PCS; principal; 2018-06-12)
DX: J96.21 Acute and chronic respiratory failure with hypoxia (principal); J44.1 Chronic obstructive pulmonary disease with (acute) exacerbation; I50.32 Chronic diastolic (congestive) heart failure; E44.0 Moderate protein-calorie malnutrition; J96.22 Acute and chronic respiratory failure with hypercapnia; F41.0 Panic disorder [episodic paroxysmal anxiety]; E87.5 Hyperkalemia; F32.9 Major depressive disorder, single episode, unspecified; E78.5 Hyperlipidemia, unspecified; M81.0 Age-related osteoporosis without current pathological fracture; K59.00 Constipation, unspecified; D75.89 Other specified diseases of blood and blood-forming organs; F10.10 Alcohol abuse, uncomplicated; F17.210 Nicotine dependence, cigarettes, uncomplicated; Z66 Do not resuscitate; F03.90 Unspecified dementia, unspecified severity, without behavioral disturbance, psychotic disturbance, mood disturbance, and anxiety; I11.0 Hypertensive heart disease with heart failure
CPT/HCPCS: 36415; 51701; 71045; 80048; 80053; 81003; 81015; 82553; 82607; 82747; 82805; 83605; 83880; 84145; 84443; 84484; 85025; 86780; 87040; 87086; 93005; 94640; 94660; 94664; 96365; 96367; 96375; A4353; G8978-GP-CM; G8979-GP-CK; G8979-GP-CL; G8987-GO-CM; G8988-GO-CJ; J1650; J2543; J2930; J3370; J3420; J7506; J7620

== ENCOUNTER 2018-07-23 22:42 | Inpatient (IN) | payer MEDICARE ==
--- NOTE | 2018-07-23 23:15 | RAD ---
SINGLE VIEW CHEST: HISTORY: Dyspnea. COMPARISON: 06/12/2018 FINDINGS: A single view of the chest shows a normal sized cardiomediastinal silhouette with atherosclerotic jennifer cifications in the aorta. Hyperexpansion of the lungs is likely secondary to COPD. There is no evid ence of consolidation, mass, or pleural effusion. IMPRESSION: 1. No evidence of acute cardiopulmonary disease. 2. Chronic obstructive pulmonary disease. POS: REMBERTOH
[2018-07-23 23:19] LABS: Hemoglobin 12.1 g/dL (12.0-16.0); Mean Platelet Volume 7.5 fL (7.4-10.4); Platelet Count 157 thou/uL (130-400); RBC Distribution Width 13.3 % (11.5-14.5); Red Blood Cell (RBC) Count 3.91 mill/uL (4.20-5.40); White Blood Cell (WBC) Count 6.1 thou/uL (4.8-10.8)
[2018-07-23 23:30] LABS: #Eosinphils 0.2 thou/uL (0.0-0.7); #Lymphocytes 1.3 thou/uL (1.20-3.40); #Monocytes 0.8 thou/uL (0.11-0.59); #Neutrophils 3.8 thou/uL (1.40-6.50); %Basophils 0.4 % (0.0-1.0); %Eosinophils 2.7 % (0.0-10.0); %Lymphocytes 21.9 % (21.0-51.0); %Monocytes 13.1 % (0.0-10.0)
[2018-07-23 23:39] LABS: ALT (SGPT) 11 U/L (8-55); AST (SGOT) 15 U/L (5-34); Albumin 3.4 g/dL (3.4-4.8); Alkaline Phosphatase 85 U/L (40-150); BUN (Urea Nitrogen) 9 mg/dL (9.8-20.1); Bilirubin, Total 0.3 mg/dL (0.2-1.2); Calc. Creatinine Clearance 0 mL/min (70-130); Calcium 9.7 mg/dL (7.8-10.44); Estimated GFR-MDRD Greater than 90; Globulin 2.8 g/dL (2.4-3.5); Glucose 116 mg/dL (83-110); Protein, Total 6.2 g/dL (6.0-8.3)
[2018-07-23 23:48] LABS: Anion Gap 16 mmol/L (10-20); Carbon Dioxide 34 mmol/L (23-31); Chloride 96 mmol/L (98-107); Potassium 4.3 mmol/L (3.5-5.1); Sodium 142 mmol/L (136-145)
[2018-07-24] MEDS ORDERED: methylPREDNISolone Sod Succ/PF 125 MG/2 ML VIAL ONE (00:38)
--- NOTE | 2018-07-24 01:27 | PDOC.FPRHP ---
- History of Present Illness Chief Complaint: SOB History of Present Illness: This is a 78 yo female with a pmh of COPD, HTN, Depression, dementia who presents to the ED with a cc SOB. [id number]-[id number] reports pt has had malaise for the last 3 days. Pt denies fever during that time but states that at 1500 on she started having a cough that worsened throughout the day into the night. Family states that she has not had any change in sputum production but has had increased work of breathing. Family also states that they heard wheezing and that is why they wanted to bring her in tonight. Pt has home COPD medications however they report a lack of a nebulizer machine. Family reports no sick contacts and reports last hospitalization was 6 months ago. She uses O2 at home , ~1-2L nc all the time. Pt was recently hospitalized following a ground level fall 2/2 to deconditioning. ED Course: Duoneb x3 Levaquin solumedrol - Allergies/Adverse Reactions Allergies Allergy/AdvReac Type Severity Reaction Status Date / Time No Known Drug Allergies Allergy Verified 06/12/18 19:41 - Home Medications Medication Instructions Recorded Confirmed Type Aspirin [Ray Chewable Aspirin] 81 mg PO DAILY 04/21/18 06/18/18 History Fluticasone/Vilanterol [Breo 1 inh IH DAILY 04/21/18 06/18/18 History Ellipta] Folic Acid [Folvite] 1 mg PO DAILY tab 05/02/18 06/18/18 Rx Thiamine 100 mg PO DAILY tab 05/02/18 06/18/18 Rx ALPRAZolam [Xanax] 0.25 mg PO PRN PRN 06/12/18 06/18/18 History Famotidine [Pepcid] 20 mg PO DAILY 06/12/18 06/18/18 History Teriparatide [Forteo] 20 mcg SC DAILY 06/12/18 06/18/18 History Nebivolol HCl [Bystolic] 2.5 mg PO DAILY tab 06/18/18 06/18/18 Rx Polyethylene Glycol 3350 [Miralax] 17 gm PO DAILYPRN PRN pk 06/18/18 06/18/18 Rx Ipratropium/Albuterol Sulfate 3 ml NEB QID #0 neb 06/30/18 06/18/18 Rx [DuoNeb] Mirtazapine [Remeron] 15 mg PO HS tab 06/30/18 Rx - History PMHx: COPD, HTN, Dementia, deconditioning, CHF PSHx: Hysterectomy, right hip surgery FHx: noncontributory Social: Former smoker - Review of Systems General: denies: fever/chills, weight/appetite/sleep changes Eyes: denies: eye pain, vision changes ENT: denies: nasal congestion, rhinorrhea Respiratory: reports: cough, congestion, shortness of breath, exercise intolerance Cardiovascular: denies: chest pain, palpitation, edema Gastrointestinal: denies: nausea, vomiting, diarrhea, constipation Genitourinary: denies: dysuria Skin: denies: rashes, lesions Musculoskeletal: denies: pain, tenderness Neurological: denies: numbness, syncope Psychological: denies: anxiety, depression - Vital signs BP: 155/88 HR: 87 RR: 30 Tmax: 97.9 Pox: 95% on 2L nc Wt: 47.9 - Physical Exam Constitutional: NAD, other (Cachectic, awake, alert, not orient to place or time ) HEENT: normocephalic and atraumatic, PERRLA, EOMI, MMM Neck: trachea midline, no JVD Chest: no-tender to palpation Heart: RRR, normal S1/S2, no murmurs/rubs/gallops Lungs: other (diffuse wheezing, shallow breaths, no apparent respiratory disress , speaks in complete sentences) FMR H&P: Results - Labs Result Diagrams: 07/23/18 23:10 07/23/18 23:10 Lab results: WBC 6.1 thou/uL (4.8-10.8) 07/23/18 23:10 Hgb 12.1 g/dL (12.0-16.0) 07/23/18 23:10 Hct 40.4 % (36.0-47.0) 07/23/18 23:10 MCV 103.0 fL (78.0-98.0) H 07/23/18 23:10 Plt Count 157 thou/uL (130-400) 07/23/18 23:10 Neutrophils % 62.0 % (42.0-75.0) 07/23/18 23:10 Sodium 142 mmol/L (136-145) 07/23/18 23:10 Potassium 4.3 mmol/L (3.5-5.1) 07/23/18 23:10 Chloride 96 mmol/L (98-107) L 07/23/18 23:10 Carbon Dioxide 34 mmol/L (23-31) H 07/23/18 23:10 BUN 9 mg/dL (9.8-20.1) L 07/23/18 23:10 Creatinine 0.57 mg/dL (0.6-1.1) L 07/23/18 23:10 Glucose 116 mg/dL (83-110) H 07/23/18 23:10 Calcium 9.7 mg/dL (7.8-10.44) 07/23/18 23:10 Total Bilirubin 0.3 mg/dL (0.2-1.2) 07/23/18 23:10 AST 15 U/L (5-34) 07/23/18 23:10 ALT 11 U/L (8-55) 07/23/18 23:10 Alkaline Phosphatase 85 U/L (40-150) 07/23/18 23:10 B-Natriuretic Peptide 105.5 pg/mL (0-100) H 07/23/18 23:10 Serum Total Protein 6.2 g/dL (6.0-8.3) 07/23/18 23:10 Albumin 3.4 g/dL (3.4-4.8) 07/23/18 23:10 - Radiology Interpretation Chest x-ray Status: report reviewed by me (no evidence of acute cardio pulmonary disease, chronic obstructive pulmonary disease) FMR H&P: A/P - Problem List (1) Acute on chronic respiratory failure with hypoxia Current Visit: Yes Status: Acute Code(s): J96.21 - ACUTE AND CHRONIC RESPIRATORY FAILURE WITH HYPOXIA (2) Dementia Current Visit: Yes Status: Acute Code(s): F03.90 - UNSPECIFIED DEMENTIA WITHOUT BEHAVIORAL DISTURBANCE (3) COPD exacerbation Current Visit: No Status: Acute Code(s): J44.1 - CHRONIC OBSTRUCTIVE PULMONARY DISEASE W (ACUTE) EXACERBATION (4) Depression Current Visit: No Status: Chronic Code(s): F32.9 - MAJOR DEPRESSIVE DISORDER , SINGLE EPISODE, UNSPECIFIED (5) HTN (hypertension) Current Visit: No Status: Chronic Code(s): I10 - ESSENTIAL (PRIMARY) HYPERTENSION Qualifiers: Hypertension type: essential hypertension Qualified Code(s): I10 - Essential (primary) hypertension Comment: Continue home BP regimen and monitor BP trend (6) Hyperlipidemia Current Visit: No Status: Chronic Code(s): E78.5 - HYPERLIPIDEMIA, UNSPECIFIED - Plan This is a 78 yo female with a pmh of COPD, HTN, Depression, dementia Acute hypoxic respiratory failure 2/2 COPD exacerbation -Admit to IMCU due to duonebs x3 and respirations in the 30s-40s. Pt appears to have little reserve. Transfer to medical when her respirations improve -Scheduled and PRN duones -Doxycycline and oral prednisone -Pending ABG -Pending influenza swab HTN -Continue home meds Depression -Continue home meds Dementia -Continue home meds, keep blinds open during the day and closed at night. Protein deficient malnutrition -Initiate supplementation Code: DNAR Prophylaxis: SCDs, no pharmalogical DVT prophylaxis due to recent hospitalization due to fall and deconditioning Family: [id number]-[id number] at bedside and assessment and plan discussed with her Disposition: DC in 3-4 days FMR H&P: Upper Level - Pertinent history [id number] p/w several day history of dypsnea and weakness at home. She was recently hospitalized from 04/21-05/02 due to a ground level fall that resulted in left hip hemiarthroplasty due to a left subcapital femoral neck fracture. She was discharged to SNF at that time but wound up being readmitted from 06/12-06/18 for a COPD exacerbation. She has been very limited in her mobility and ability to perform ADLs since the surgery. She also has what amounts to end-stage COPD further complicated by dementia. Due to the dementia, patient is only A&Ox1 ( baseline) so it is hard to get an accurate history from the her, and most of the pertinent history comes from the [id number] who also lives with the patient. She reports there have been no sick contacts at home, and that she only noticed the patients cough today. She has minimal appetite, but that is her baseline. No fevers at home. Due to the increased work of breathing and lack of BiPap at home, patient was brought to the ED via EMS. EMS: Solumedrol 125mg, Duonebs x 2, initiated CPAP ED: CPAP d/c, Duoneb x 1 - Pertinent findings WBC: 6.1 MCV: 103 (baseline) Bicarb: 34 BNP: 105 CXR: no consolidations or acute process TTE on 04/22/18 shows EF of 55-60% and E/A flow reversal suggesting diastolic dysfunction Cardiac stress test on 05/12/18 shows no reversible ischemia - Plan Date/Time: 07/24/18 0126 I, Keo Camacho, have evaluated this patient and agree with findings/plan as outlined by help desk intern resident. Pertinent changes/additions are listed here. COPD exacerbation: prior history of this presentation, usually requiring BiPap support overnight with gradual improvement. No need for continued BiPap at this time but will admit to IMCU in anticipation of possible need. ABG pending. Unknown trigger for exacerbation, but likely viral etiology with rapid influenza pending. Transition to oral steroids and continue antibiotics. Patient is normally on 1.5-2L of O2 via NC at home. Will titrate her SpO2 to <94 % while on the floor. No fever of leukocytosis to warrant broad spectrum antibiotics. CXR unconcerning for PNA at this time. Severe weakness & deconditioning: palliative care was consulted last month and discussed hospice dispo, but the family declined at that time. I believe it is worth asking again given the lack of progress made by the patient in terms of strength, appetite, and ADLs.
[2018-07-24] MEDS ORDERED: Ondansetron ODT 4 MG TAB PO PRN (01:44)
[2018-07-24] MEDS ORDERED: Acetaminophen 325 MG TAB PO PRN (01:44)
[2018-07-24 02:41] LABS: Troponin I Less than 0.010 ng/mL (< 0.028)
[2018-07-24 06:17] LABS: Troponin I Less than 0.010 ng/mL (< 0.028)
[2018-07-24] MEDS ORDERED: predniSONE 20 MG TAB ONE (08:17)
[2018-07-24 09:16] LABS: Actual Bicarbonate (HCO3a) 39.3 mEq/L (22-28); Analyzer IN Cardio ER; Base Excess (BEa) 11.8 mEq/L (-2.0 to +3.0); Calcium, Ionized 1.22 mmol/L (1.12-1.30); Carboxyhemoglobin (COHb) 0.6 gm% (0.0-3.0); Hemoglobin (Hb) 12.8 g/dL (12.0-16.0); Potassium - ABG Lab 4.44 mmol/L (3.70-5.30)
[2018-07-24 09:25] LABS: CO2 Tension 65.5 mmHg (35.0-45.0); O2 Tension (PaO2) 52.3 mmHg (> 70.0)
[2018-07-24 09:26] LABS: ALV-art Gradient 51.205 (0-20); Puncture Site LRA
[2018-07-24 15:35] VITALS: BMI 14.8
[2018-07-24] MEDS ORDERED: Furosemide 40 MG/4 ML VIAL SLOW IVP SCH (16:30)
--- NOTE | 2018-07-24 16:33 | CON ---
DATE OF CONSULTATION: 07/24/2018 SERVICE: Pulmonary Medicine. REASON FOR CONSULT: Respiratory failure. HISTORY OF PRESENT ILLNESS: The patient is a 78-year-old female with past medical history significant for some degree of COPD. She was in her usual state of health until two days prior to admission when she started having increasing cough, congestion, and shortness of breath. Ultimately, she was brought back to the Emergency Department. She was trying to get set up with a nebulizer at home. The daughter feels that if she were able to give her those medication, she would not have to come to the Emergency Department. Either way, she showed and ultimately, was discovered to have a COPD exacerbation. She was put in the hospital with antibiotics, steroids, nebulized medication. The patient cannot provide any additional elements of the history because of advanced dementia. Otherwise, she is in her usual state of health. We have no reports of recent sick contacts, fevers, nausea, vomiting, diarrhea, or hot-red swollen joints. PAST MEDICAL HISTORY: 1. COPD. 2. Hypertension. 3. Dyslipidemia. 4. Dementia, severe. 5. Major depressive disorder. PAST SURGICAL HISTORY: 1. Hysterectomy. 2. Right hip fracture, status post repair. FAMILY HISTORY: Noncontributory. SOCIAL HISTORY: Negative for alcohol, tobacco, or illicit drug use. She has a remote history of alcohol and tobacco abuse, but quit in March. She has no exposure to chemicals, dust, asbestos, or tuberculosis. ALLERGIES: NO KNOWN DRUG ALLERGIES. MEDICATIONS: List of her inpatient medications was reviewed. No specific updates were made at this time. REVIEW OF SYSTEMS: General, head, ears, eyes, nose, throat, cardiovascular, respiratory, GI, , musculoskeletal, neurologic, and skin is negative except as mentioned in the HPI. PHYSICAL EXAMINATION: VITAL SIGNS: Afebrile, pulse 100, blood pressure 171/75, respirations 20, saturation 100% on 2 L nasal cannula. GENERAL: The patient is awake, alert, in no apparent distress. LUNGS: Decreased air entry. There is a prolonged expiratory phase with polyphonic wheezing present. Dependent crackles are noted. HEART: Normal rate regular. ABDOMEN: Soft, nontender, and nondistended. Bowel sounds are positive. MUSCULOSKELETAL: No cyanosis or clubbing. There is 2+ edema in the bilateral lower extremities. NEUROLOGIC: Grossly nonfocal. DIAGNOSTIC DATA: WBC 6.1, hemoglobin 12.1, platelets 157,000. PH 7.40, pCO2 of 65, pO2 of 52. Basic metabolic profile is essentially unremarkable/stable. Liver function studies are unremarkable. BNP 105. Cardiac enzymes are negative x3. Urinalysis is unremarkable. Syphilis was previously nonreactive. Blood cultures x2, urine culture x2 are negative. ASSESSMENT: 1. Acute hypoxic and hypercapnic respiratory failure. 2. Chronic obstructive pulmonary disease with acute exacerbation. 3. Dementia, likely fairly advanced. 4. Weakness. DISCUSSION AND PLAN: We will continue antibiotics, nebulized medications, and steroids. I will give her a single dose of Lasix. If she is stable overnight, she can be transitioned to the floor tomorrow morning. Pulmonary will continue to follow while the patient remains inhouse. Job ID: [id number]
[2018-07-24] MEDS: predniSONE 20 MG TAB PO SCH (17:01)
[2018-07-24] MEDS: Doxycycline 100 MG CAP PO SCH ×2 (17:01→20:53)
--- NOTE | 2018-07-25 06:26 | PDOC.FM ---
- Subjective Subjective: Patient resting comfortably in bed. No overnight events. Sister in law at the bedside - states patient did well overnight, but had a panic attack this morning after being weened to room air. Patient was weened off NC, but had a panic attack which required her to put NC back on. Otherwise, patient states she feels better than yesterday. States wheezing has improved. Patient currently eating breakfast which was well tolerated. - Objective Vital Signs & Weight: Vital Signs (12 hours) Temp Pulse Resp BP Pulse Ox 07/25/18 04:00 99.2 F 97 20 142/68 H 100 07/25/18 00:03 110 H 20 100 07/25/18 00:00 97.9 F 103 H 20 94/67 100 07/24/18 20:00 98.3 F 100 18 141/63 H 100 07/24/18 18:45 95 20 100 Weight Weight 38.102 kg I&O: 07/23/18 07/24/18 07/25/18 06:59 06:59 06:59 Intake Total 254 Output Total 500 Balance -246 Result Diagrams: 07/23/18 23:10 07/25/18 11:05 Phys Exam - Physical Examination Constitutional: NAD resting in bed, elderly AA female HEENT: PERRLA, moist MMs, sclera anicteric Neck: supple, full ROM mild wheeze bilaterally, diffuse; no distress on exam or incr effort Cardiovascular: RRR, no significant murmur, no rub Gastrointestinal: soft, non-tender, no distention, positive bowel sounds Psychiatric: normal affect Deviation from normal: alert and awake, not oriented Skin: no rash Dx/Plan (1) Acute on chronic respiratory failure with hypoxia Code(s): J96.21 - ACUTE AND CHRONIC RESPIRATORY FAILURE WITH HYPOXIA Status: Acute (2) Dementia Code(s): F03.90 - UNSPECIFIED DEMENTIA WITHOUT BEHAVIORAL DISTURBANCE Status: Acute (3) HAZEL (acute kidney injury) Code(s): N17.9 - ACUTE KIDNEY FAILURE, UNSPECIFIED Status: Acute (4) Acute respiratory failure with hypoxia and hypercapnia Code(s): J96.01 - ACUTE RESPIRATORY FAILURE WITH HYPOXIA; J96.02 - ACUTE RESPIRATORY FAILURE WITH HYPERCAPNIA Status: Acute (5) COPD exacerbation Code(s): J44.1 - CHRONIC OBSTRUCTIVE PULMONARY DISEASE W (ACUTE) EXACERBATION Status: Acute (6) COPD (chronic obstructive pulmonary disease) Status: Chronic (7) Depression Code(s): F32.9 - MAJOR DEPRESSIVE DISORDER, SINGLE EPISODE, UNSPECIFIED Status : Chronic (8) HTN (hypertension) Code(s): I10 - ESSENTIAL (PRIMARY) HYPERTENSION Status: Chronic Qualifiers: Hypertension type: essential hypertension Qualified Code(s): I10 - Essential (primary) hypertension (9) Hyperlipidemia Code(s): E78.5 - HYPERLIPIDEMIA, UNSPECIFIED Status: Chronic - Plan Plan: This is a 78 yo female with a pmh of COPD, HTN, Depression, dementia here for COPD exacerbation. Acute hypoxic respiratory failure 2/2 COPD exacerbation - ABG on arrival showed CO2 of 65.5 - continue scheduled and PRN duonebs - continue doxycycline and oral prednisone - Flu neg - Will discuss palliative care/hospice today w/ family - Will transfer to medical floor this AM as resp status has improved HTN - Continue home meds Depression - Continue home meds Dementia - Continue home meds, keep blinds open during the day and closed at night. Recommend family present to help orient patient. Protein deficient malnutrition - Initiate supplementation Code: DNAR Prophylaxis: SCDs, no pharmalogical DVT prophylaxis due to recent hospitalization due to fall and deconditioning Disposition: DC in 2-3 days, continue tx for COPD exacerbation Addendum - Attending - Attending Attestation Date/Time: 07/25/18 1600 I personally evaluated the patient and discussed the management with Dr. Santamaria I agree with the History, Examination, Assessment and Plan documented above with any addition or exceptions noted below- Patient without complaints. States that breathing is better. Tolerating diet. Afebrile VSS. A/P: 1) COPD exacerbation- improved; plan to transfer to medical. Continue steroids, nebs, O2. 2) Protein calorie malnutrition - supplements as tolerated.
[2018-07-25] MEDS: Losartan 25 MG TAB PO SCH (09:24)
[2018-07-25] MEDS: predniSONE 20 MG TAB PO SCH (09:24)
[2018-07-25] MEDS: Doxycycline 100 MG CAP PO SCH ×2 (09:25→19:57)
[2018-07-25] MEDS: Nebivolol HCl 2.5 MG TAB PO SCH (09:25)
[2018-07-25 11:42] LABS: BUN (Urea Nitrogen) 16 mg/dL (9.8-20.1); Calc. Creatinine Clearance 44 mL/min (70-130); Calcium 9.6 mg/dL (7.8-10.44); Estimated GFR-MDRD Greater than 90; Glucose 104 mg/dL (83-110)
[2018-07-25 11:51] LABS: Anion Gap 14 mmol/L (10-20); Carbon Dioxide 37 mmol/L (23-31); Chloride 94 mmol/L (98-107); Potassium 3.7 mmol/L (3.5-5.1); Sodium 141 mmol/L (136-145)
--- NOTE | 2018-07-25 12:29 | PRG ---
DATE OF SERVICE: 07/25/2018 SERVICE: Pulmonary Medicine. INTERVAL HISTORY: The patient is doing fine from respiratory standpoint. Denies any current chest pain, fevers, chills, nausea, or vomiting. She is breathing much more comfortably. She is coughing and bringing up a little bit of sputum. Otherwise, there has been no interval change to her condition. She is breathing much better than she did yesterday. OBJECTIVE: VITAL SIGNS: Afebrile currently with a T-max of 99.3, pulse 85, blood pressure 132/97, respirations 18, and saturation 100% on 2 L nasal cannula. GENERAL: The patient is awake and alert, in no apparent distress. LUNGS: Decent air entry. There is no prolonged expiratory phase or wheezing present. Rhonchi are present and extensive. They clear with cough. HEART: Normal rate, regular. ABDOMEN: Soft, nontender, and nondistended. Bowel sounds are positive. MUSCULOSKELETAL: No cyanosis or clubbing. No pitting in the bilateral lower extremities. NEUROLOGIC: Grossly nonfocal. LABORATORY DATA: Basic metabolic profile is essentially unremarkable. Potassium 3.7. Respiratory virus panel is negative. ASSESSMENT: 1. Acute hypoxic and hypercapnic respiratory failure. 2. Chronic obstructive pulmonary disease with acute exacerbation, resolved quickly. 3. Dementia, advanced. 4. Weakness. DISCUSSION AND PLAN: We will continue with antibiotics, nebulized medications, and steroids. At this point, the patient is stable for transition out of the ICU to the medical floor. If she remains stable, she can be transitioned home tomorrow. Pulmonary will continue to follow for the time being. Ultimately, end of life discussions need to be continued as the patient does not have very good functional status and is getting weaker each time I see her. Job ID: [id number]
[2018-07-25] MEDS: Mometasone/Formoterol 120 PUFF INHALER INH SCH (18:48)
[2018-07-25] MEDS: ALPRAZolam 0.25 MG TAB PO SCH (19:57)
[2018-07-25] MEDS ORDERED: Mirtazapine 15 MG TAB PO SCH (21:00)
[2018-07-26] MEDS: Mometasone/Formoterol 120 PUFF INHALER INH SCH (06:53)
--- NOTE | 2018-07-26 06:54 | PDOC.FM ---
- Subjective Subjective: No events overnight. Patient states she is doing well this morning. No complaints or concerns. States she is ready to go home. - Objective Vital Signs & Weight: Vital Signs (12 hours) Temp Pulse Resp BP Pulse Ox 07/26/18 06:41 86 16 98 07/26/18 04:00 97.7 F 85 18 163/85 H 100 07/26/18 00:07 57 L 16 100 07/26/18 00:00 97.7 F 110 H 18 153/68 H 97 07/25/18 19:38 97.7 F 97 16 104/64 100 Weight Admit Weight 38.102 kg Weight 38.102 kg I&O: 07/24/18 07/25/18 07/26/18 06:59 06:59 06:59 Intake Total 364 Output Total 500 Balance -136 Result Diagrams: 07/23/18 23:10 07/25/18 11:05 Phys Exam - Physical Examination Constitutional: NAD HEENT: PERRLA, moist MMs, sclera anicteric Neck: supple, full ROM Respiratory: clear to auscultation bilateral Cardiovascular: RRR, no significant murmur, no rub Gastrointestinal: soft, non-tender, no distention, positive bowel sounds Musculoskeletal: no edema Neurological: non-focal Psychiatric: normal affect Skin: no rash Dx/Plan (1) Acute on chronic respiratory failure with hypoxia Code(s): J96.21 - ACUTE AND CHRONIC RESPIRATORY FAILURE WITH HYPOXIA Status: Acute (2) Dementia Code(s): F03.90 - UNSPECIFIED DEMENTIA WITHOUT BEHAVIORAL DISTURBANCE Status: Acute (3) HAZEL (acute kidney injury) Code(s): N17.9 - ACUTE KIDNEY FAILURE, UNSPECIFIED Status: Acute (4) Acute respiratory failure with hypoxia and hypercapnia Code(s): J96.01 - ACUTE RESPIRATORY FAILURE WITH HYPOXIA; J96.02 - ACUTE RESPIRATORY FAILURE WITH HYPERCAPNIA Status: Acute (5) COPD exacerbation Code(s): J44.1 - CHRONIC OBSTRUCTIVE PULMONARY DISEASE W (ACUTE) EXACERBATION Status: Acute (6) COPD (chronic obstructive pulmonary disease) Status: Chronic (7) Depression Code(s): F32.9 - MAJOR DEPRESSIVE DISORDER, SINGLE EPISODE, UNSPECIFIED Status : Chronic (8) HTN (hypertension) Code(s): I10 - ESSENTIAL (PRIMARY) HYPERTENSION Status: Chronic Qualifiers: Hypertension type: essential hypertension Qualified Code(s): I10 - Essential (primary) hypertension (9) Hyperlipidemia Code(s): E78.5 - HYPERLIPIDEMIA, UNSPECIFIED Status: Chronic - Plan Plan: This is a 78 yo female with a pmh of COPD, HTN, Depression, dementia here for COPD exacerbation. Acute hypoxic respiratory failure 2/2 COPD exacerbation - ABG on arrival showed CO2 of 65.5 - continue scheduled/PRN duonebs - continue doxycycline and oral prednisone - Flu neg - Palliative had discussion w/ patient and sgjgkn-bu-zug yesterday. Plan for HH. Will touch base w/ palliative care. - Resp status improved and can likely be transitioned home today HTN - Continue home meds Depression - Continue home meds Dementia - Continue home meds, keep blinds open during the day and closed at night. Recommend family present to help orient patient. Protein deficient malnutrition - Initiate supplementation Code: DNAR Prophylaxis: SCDs, no pharmalogical DVT prophylaxis due to recent hospitalization due to fall and deconditioning Disposition: d/c home today, continue tx for COPD exacerbation Addendum - Attending - Attending Attestation Date/Time: 07/26/18 [id number] I personally evaluated the patient and discussed the management with Dr. Santamaria I agree with the History, Examination, Assessment and Plan documented above with any addition or exceptions noted below - Patient without complaints. Ready to go home. Afebrile VSS A/P: 1) COPD exacerbation- improved; plan to d/c home today with HH.
[2018-07-26 07:16] VITALS: TEMP 98.4
[2018-07-26] MEDS: ALPRAZolam 0.25 MG TAB PO SCH (08:05)
[2018-07-26] MEDS: Doxycycline 100 MG CAP PO SCH (08:06)
[2018-07-26] MEDS: Losartan 25 MG TAB PO SCH (08:07)
[2018-07-26] MEDS: Nebivolol HCl 2.5 MG TAB PO SCH (08:08)
[2018-07-26] MEDS: predniSONE 20 MG TAB PO SCH (08:09)
[2018-07-26 09:36] VITALS: BP 192/69
--- NOTE | 2018-07-27 17:46 | EKG ---
Test Reason : Blood Pressure : / mmHG Vent. Rate : 094 BPM Atrial Rate : 094 BPM P-R Int : 120 ms QRS Dur : 070 ms QT Int : 346 ms P-R-T Axes : 088 015 077 degrees QTc Int : 432 ms Normal sinus rhythm Possible Left atrial enlargement Septal infarct , age undetermined Abnormal ECG Confirmed by BRENDEN CROW ([id number]), health editor CHRIS BLACKWOOD ([id number]) on 07/27/2018 5:45:56 PM Referred By: Confirmed By:BRENDEN CROW
--- NOTE | 2018-07-28 01:56 | DIS ---
DATE OF ADMISSION: 07/24/2018 DATE OF DISCHARGE: 07/26/2018 RESIDENT: Sharmaine Santamaria MD ADMITTING ATTENDING: Mainor Robles MD DISCHARGE ATTENDING: Tonia Jesus MD CONSULTS: Case Management, OT/PT, Palliative Care, Pulmonology. PROCEDURES: None. PRIMARY DIAGNOSIS: Acute hypoxic respiratory failure secondary to chronic obstructive pulmonary disease exacerbation. SECONDARY DIAGNOSES: Hypertension, depression, dementia, protein deficient malnutrition. DISCHARGE MEDICATIONS: 1. Doxycycline 100 mg oral twice daily. 2. Prednisone 40 mg oral every morning with breakfast. 3. Fluticasone one inhalation daily. 4. Aspirin 81 mg oral daily. 5. Folic acid 1 mg oral daily. 6. Thiamine 100 mg oral daily. 7. Xanax 0.25 mg oral as needed. 8. Pepcid 20 mg oral daily. 9. Forteo 20 mcg subcutaneous daily. 10. Bystolic 2.5 mg oral daily. 11. MiraLax 17 g oral daily as needed. 12. Remeron 15 mg oral at bedtime. 13. DuoNeb 3 mL nebulizer four times daily. 14. Sertraline 25 mg oral daily. 15. Losartan 100 mg oral daily. 16. Dulera two puff inhalation twice daily. DISCONTINUED MEDICATIONS: None. HISTORY OF PRESENT ILLNESS AND HOSPITAL COURSE: This is a 78-year-old female with past medical history of COPD, hypertension, depression, and dementia who presented to the emergency department with a chief complaint of shortness of breath. The patient was accompanied by her guzirr-hq-suy who reported that the patient had been more lethargic over the last three days. The patient stated that on 07/23/2018, she started having a cough that worsened throughout the day and into the night. The patient and family denied any change in sputum production, but noted increased work of breathing at this time. Rizlvo-ng-yji also endorsed hearing a wheeze, which is why the patient was brought into the ER. The patient uses 1 to 2 L nasal cannula of oxygen at home. Of note, the patient was recently hospitalized following a ground level fall secondary to deconditioning. In the ER, the patient was given DuoNeb treatment, Levaquin, and Solu-Medrol. The patient was admitted to the [facility] and was continued on scheduled and p.r.n. DuoNeb as well as doxycycline and oral prednisone. The patient's ABG revealed a CO2 of 65.5. Influenza swab was negative. The patient was transferred to the medical floor due to improved respiratory status and saturating well on her home oxygen level. Throughout her stay, the patient's respiratory status continued to improve and on the day of discharge, the patient denied wheezing and stated that her breathing was much improved. The patient will be discharged to complete a five-day course of prednisone and antibiotics. The patient was also set up with home health with the assistance of Case Management. Palliative Care was consulted due to patient's overall functional status and discussed end-of-life and symptomatic care. DISPOSITION: Stable. DISCHARGE INSTRUCTIONS: 1. Location: Home with home health. 2. Diet: Regular diet with Ensure Enlive supplementation. 3. Activity: Ad-sarita. 4. Followup: Follow up with PCP within one week. Job ID: [id number] MTDD
== END 2018-07-26 12:09 | disposition home health service (06) | DRG 189 ==
LOC: ERS 22:42 → ERHOLD 07-24 01:13 → IMCU/EMU 07-24 14:49 → T4-A 07-25 14:28
PROVIDERS: ADMIT Family Medicine; ATTEND Family Medicine
DX: J96.01 Acute respiratory failure with hypoxia (principal); J44.1 Chronic obstructive pulmonary disease with (acute) exacerbation; N17.9 Acute kidney failure, unspecified; E46 Unspecified protein-calorie malnutrition; Z68.1 Body mass index [BMI] 19.9 or less, adult; Z66 Do not resuscitate; J96.02 Acute respiratory failure with hypercapnia; I10 Essential (primary) hypertension; E78.00 Pure hypercholesterolemia, unspecified; E78.5 Hyperlipidemia, unspecified; F41.0 Panic disorder [episodic paroxysmal anxiety]; F03.90 Unspecified dementia, unspecified severity, without behavioral disturbance, psychotic disturbance, mood disturbance, and anxiety; F32.9 Major depressive disorder, single episode, unspecified; Z90.710 Acquired absence of both cervix and uterus; Z99.81 Dependence on supplemental oxygen; Z98.890 Other specified postprocedural states; Z87.891 Personal history of nicotine dependence
CPT/HCPCS: 36415; 36416; 71045; 80048; 80053; 82805; 83880; 84484; 85025; 87040; 87633; 87798; 93005; 94640; 96365; 96366; 96375; G8978-GP-CM; G8979-GP-CK; G8987-GO-CM; G8988-GO-CK; J1940; J1956; J2930; J7506; J7620

== ENCOUNTER 2018-08-07 07:08 | Inpatient (IN) | payer MEDICARE ==
[2018-08-07 08:11] LABS: #Lymphocytes 0.7 thou/uL (1.20-3.40); #Monocytes 0.6 thou/uL (0.11-0.59); #Neutrophils 7.6 thou/uL (1.40-6.50); %Basophils 0.2 % (0.0-1.0); %Eosinophils 0.5 % (0.0-10.0); %Lymphocytes 7.9 % (21.0-51.0); %Neutrophils 84.4 % (42.0-75.0); Hemoglobin 11.1 g/dL (12.0-16.0); Mean Corpuscular HGB CONC 29.4 g/dL (32.0-36.0); Mean Corpuscular Hemoglobin 29.7 pg (27.0-31.0); Mean Platelet Volume 7.2 fL (7.4-10.4); Platelet Count 299 thou/uL (130-400); Red Blood Cell (RBC) Count 3.75 mill/uL (4.20-5.40)
[2018-08-07 08:13] LABS: ALT (SGPT) 10 U/L (8-55); AST (SGOT) 19 U/L (5-34); Albumin 3.5 g/dL (3.4-4.8); Alkaline Phosphatase 74 U/L (40-150); Anion Gap 15 mmol/L (10-20); BUN (Urea Nitrogen) 14 mg/dL (9.8-20.1); Bilirubin, Total 0.3 mg/dL (0.2-1.2); CK (CPK) 22 U/L (29-168); Calc. Creatinine Clearance 0 mL/min (70-130); Calcium 9.6 mg/dL (7.8-10.44); Carbon Dioxide 35 mmol/L (23-31); Chloride 94 mmol/L (98-107); Estimated GFR-MDRD Greater than 90; Globulin 2.7 g/dL (2.4-3.5); Glucose 121 mg/dL (83-110); Potassium 4.7 mmol/L (3.5-5.1); Protein, Total 6.2 g/dL (6.0-8.3); Sodium 139 mmol/L (136-145)
--- NOTE | 2018-08-07 08:18 | RAD ---
PORTABLE UPRIGHT FRONTAL CHEST RADIOGRAPH: Date: 08/07/18 COMPARISON: 07/23/18. HISTORY: Altered mental status. FINDINGS: There is no pneumothorax or pleural fluid, and no focal consolidation or alveolar edema. There is inc reased linear interstitial density bilaterally with pulmonary hyperinflation suggesting COPD in the p fleiberto clinical setting. There is atherosclerotic calcification of the aortic arch. IMPRESSION: Stable chronic findings as detailed above. POS: CLAUDIA
--- NOTE | 2018-08-07 08:35 | CT ---
BRAIN CT WITHOUT IV CONTRAST: Date: 08/07/18 HISTORY: 78-year-old female with history of altered mental status. COMPARISON: 04/21/18. FINDINGS: Motion artifact, particularly through the lower and mid portion of the head. No focal mass or midline shift. No intra or extra-axial hemorrhage. Sinuses and mastoids are clear. There is some atrophy and chronic white matter ischemic change. IMPRESSION: No mass or bleed. Atrophy and chronic white matter ischemic change. Motion artifact. Stable from prio r study. POS: OFF
[2018-08-07 09:08] LABS: Bilirubin Negative (Negative); Blood, Urine Negative (Negative); Clarity CLOUDY (Clear); Glucose, Urine (Dipstick) Negative (Negative); Leukocyte Negative (Negative); Nitrite Negative (Negative); Protein, Urine (Dipstick) 30 mg/dL (Neg-Trace); Specific Gravity, Urine 1.015 (1.002-1.036); Urobilinogen 0.2 mg/dL (0.2-1.0); pH, Urine 5.5 (5.0-9.0)
[2018-08-07 09:10] LABS: Bacteria/HPF None Seen HPF (None Seen); Pathc Cast-AUWi Flag 1.88 (0-2.49); RBC/HPF None Seen HPF (0-3); WBC/HPF 0-3 HPF (0-3)
[2018-08-07 09:37] LABS: Hyaline Casts/LPF 0-3 HYALINE CAST LPF (0-3 Hyaline); Renal Epithelial 0-3 HPF (0-3); Transitional Epithelial 0-3 HPF (0-3)
--- NOTE | 2018-08-07 11:38 | PDOC.FPRHP ---
- History of Present Illness Chief Complaint: AMS History of Present Illness: 78 yo AAM with PMHx dementia, HTN, COPD, and depression who presents from home for concern for worsening mentation. Per her fvcgzj-yp-zia who is at the bedside , she was at her baseline 2 days ago when the home health nurse checked on her. She was seen by physical therapy yesterday and at that time, starting around 11 am, she was weaker and less conversational than normal. She took a nap in the afternoon and seemed more tired and not acting herself. She called out for her jzoqym-xp-ktk, Aneta, this morning (they sleep in the same room ) and when Aneta went over to her, she was drooling and not very responsive , her BP was WNL but pulse was in the 1-teens. At that time she called EMS. After speaking to home health, the LINUX ARCHITECT documented she was doing "fine" on Sunday , not complaining of any fall or pain. At baseline, she is intermittently oriented x1, she typically recognizes her rtjsce-ds-xep and home health workers but at times will not recognize anyone and get overwhelmed and upset.She had some mild shortness of breath and LE edema but was otherwise at baseline when PT saw her yesterday. They did upper extremity and coughing exercises. She could stand briefly and get to the bathroom with assistance. She had a BM yesterday and last urinated at 0100 this morning. She otherwise has had no systemic signs of infection such as fever, chills, n/v/d, rashes or worsening cough. Her zyjuxr-uv-adx reports she has a tremor (worse in upper extremities) that seems to worsen when she is "sick." ED Course: CXR, CT brain, BCx, UCx, EKG, basic labs performed - Allergies/Adverse Reactions Allergies Allergy/AdvReac Type Severity Reaction Status Date / Time No Known Drug Allergies Allergy Verified 06/12/18 19:41 - Home Medications Medication Instructions Recorded Confirmed Type Aspirin [Ray Chewable Aspirin] 81 mg PO DAILY 04/21/18 07/24/18 History Fluticasone/Vilanterol [Breo 1 inh IH DAILY 04/21/18 07/25/18 History Ellipta] Folic Acid [Folvite] 1 mg PO DAILY tab 05/02/18 06/18/18 Rx Thiamine 100 mg PO DAILY tab 05/02/18 06/18/18 Rx ALPRAZolam [Xanax] 0.25 mg PO PRN PRN 06/12/18 07/25/18 History Famotidine [Pepcid] 20 mg PO DAILY 06/12/18 06/18/18 History Teriparatide [Forteo] 20 mcg SC DAILY 06/12/18 06/18/18 History Nebivolol HCl [Bystolic] 2.5 mg PO DAILY tab 06/18/18 07/24/18 Rx Polyethylene Glycol 3350 [Miralax] 17 gm PO DAILYPRN PRN pk 06/18/18 06/18/18 Rx Ipratropium/Albuterol Sulfate 3 ml NEB QID #0 neb 06/30/18 07/25/18 Rx [DuoNeb] Mirtazapine [Remeron] 15 mg PO HS tab 06/30/18 07/25/18 Rx Losartan [Cozaar] 100 mg PO DAILY 07/24/18 07/24/18 History Sertraline HCl 25 mg PO DAILY 07/24/18 07/25/18 History Mometasone/Formoterol 100/5 2 puff INH BID-RT 07/25/18 07/25/18 History [Dulera 100 Mcg/5 Mcg Inhaler] Doxycycline [Vibramycin] 100 mg PO BID #5 cap 07/26/18 Rx predniSONE 40 mg PO QAM-WM #3 tab 07/26/18 Rx - History PMHx: COPD, HTN, Depression, Dementia, Anxiety, Deconditioning, Former smoker PSHx: L hemiarthroscopy (03/2018), Hysterectomy FHx: Unknown Social: Remote hx of smoking - Review of Systems ROS unobtainable: due to mental status - Vital signs BP: 110/50 HR: 87 RR: 22 Tmax: 98.4 Pox: 100% on Nonrebreather Wt: 49 kg - Physical Exam Constitutional: NAD, other (lying in bed, does not appear to be in any pain) HEENT: normocephalic and atraumatic, conjunctiva clear, no scleral icterus, other (pupils minimally reactive, 4->3mm, equal BL) Neck: trachea midline Chest: no-tender to palpation Heart: RRR, normal S1/S2, other (2+ pitting edema BL lower extremities) Lungs: CTAB, no respiratory distress Abdomen: soft, non-tender, bowel sounds present Musculoskeletal: normal tone Neurological: other (will open eyes to voice, intermittently nods/shakes head, moving all extremities, withdraws to pain in all extremities, babinski downgoing , patellar and brachioradialis reflexes minimal, neck deviated to L and shakes her head when asked about respositioning) Skin: no rash/lesions, capillary refill <2 seconds Heme/Lymphatic: no unusual bruising or bleeding, no purpura FMR H&P: Results - Labs Result Diagrams: 08/07/18 07:32 08/07/18 07:32 Lab results: WBC 9.0 thou/uL (4.8-10.8) 08/07/18 07:32 Hgb 11.1 g/dL (12.0-16.0) L 08/07/18 07:32 Hct 37.9 % (36.0-47.0) 08/07/18 07:32 MCV 101.0 fL (78.0-98.0) H 08/07/18 07:32 Plt Count 299 thou/uL (130-400) 08/07/18 07:32 Neutrophils % 84.4 % (42.0-75.0) H 08/07/18 07:32 Sodium 139 mmol/L (136-145) 08/07/18 07:32 Potassium 4.7 mmol/L (3.5-5.1) 08/07/18 07:32 Chloride 94 mmol/L (98-107) L 08/07/18 07:32 Carbon Dioxide 35 mmol/L (23-31) H 08/07/18 07:32 BUN 14 mg/dL (9.8-20.1) 08/07/18 07:32 Creatinine 0.61 mg/dL (0.6-1.1) 08/07/18 07:32 Glucose 121 mg/dL (83-110) H 08/07/18 07:32 Lactic Acid 1.0 mmol/L (0.5-2.2) 08/07/18 07:32 Calcium 9.6 mg/dL (7.8-10.44) 08/07/18 07:32 Total Bilirubin 0.3 mg/dL (0.2-1.2) 08/07/18 07:32 AST 19 U/L (5-34) 08/07/18 07:32 ALT 10 U/L (8-55) 08/07/18 07:32 Alkaline Phosphatase 74 U/L (40-150) 08/07/18 07:32 Creatine Kinase 22 U/L (29-168) L 08/07/18 07:32 Serum Total Protein 6.2 g/dL (6.0-8.3) 08/07/18 07:32 Albumin 3.5 g/dL (3.4-4.8) 08/07/18 07:32 Urine Ketones Negative mg/dL (Negative) 08/07/18 08:50 Urine Blood Negative (Negative) 08/07/18 08:50 Urine Nitrite Negative (Negative) 08/07/18 08:50 Ur Leukocyte Esterase Negative (Negative) 08/07/18 08:50 Urine RBC None Seen HPF (0-3) 08/07/18 08:50 Urine WBC 0-3 HPF (0-3) 08/07/18 08:50 Ur Squamous Epith Cells 4-6 HPF (0-3) H 08/07/18 08:50 Urine Bacteria None Seen HPF (None Seen) 08/07/18 08:50 - EKG Interpretation EKG: Pending - Radiology Interpretation CT scan - head Status: image reviewed by me (negative for acute changes or bleed), report reviewed by me Chest x-ray Status: image reviewed by me, report reviewed by me (negative for acute changes) FMR H&P: A/P - Problem List (1) Encephalopathy acute Current Visit: Yes Status: Acute Code(s): G93.40 - ENCEPHALOPATHY, UNSPECIFIED (2) Anxiety Current Visit: Yes Status: Acute Code(s): F41.9 - ANXIETY DISORDER, UNSPECIFIED (3) Physical deconditioning Current Visit: Yes Status: Acute Code(s): R53.81 - OTHER MALAISE (4) Dementia Current Visit: No Status: Acute Code(s): F03.90 - UNSPECIFIED DEMENTIA WITHOUT BEHAVIORAL DISTURBANCE (5) COPD (chronic obstructive pulmonary disease) Current Visit: No Status: Chronic Comment: Continue Duonebs, Methylprednisolone, O2 support prn (6) Depression Current Visit: No Status: Chronic Code(s): F32.9 - MAJOR DEPRESSIVE DISORDER , SINGLE EPISODE, UNSPECIFIED (7) HTN (hypertension) Current Visit: No Status: Chronic Code(s): I10 - ESSENTIAL (PRIMARY) HYPERTENSION Qualifiers: Hypertension type: essential hypertension Qualified Code(s): I10 - Essential (primary) hypertension Comment: Continue home BP regimen and monitor BP trend (8) Hyperlipidemia Current Visit: No Status: Chronic Code(s): E78.5 - HYPERLIPIDEMIA, UNSPECIFIED - Plan 78 yo F here with AMS, encephalopathy concerning for acute stroke 1. Encephalopathy - Intermittently oriented x1 at baseline - CBC, CMP, lactic acid, UA, CXR all negative - CT brain negative - DDX includes acute stroke (out of window for TPA), TIA, metabolic encephalopathy, acute worsening of dementia - MRI ordered and neurology consulted, spoke with Dr. Rueda's office at 11:30 this morning - NPO - Neuro checks 2. Dementia - Advanced - Oriented x1 at baseline (which is intermittent) 3. Deconditioning 2/2 #2 and recent hospitalizations - PT/OT - ST consulted - May need placement upon discharge 4. COPD - Home inhalers - On nonrebreather for comfort as she gets agitated without O2 supplementation - No desatting and respiratory drive good 5. HTN - Permissive HTN at this time - Will hold home meds for 24 hours, goal < 220/110 6. Anxiety - Frequent panic attacks per ibbsif-rd-rqr and home health - Will eval for appropriateness of treating on case by case basis 7. Depression - Home meds when able to tolerate PO PPX: None, which was discussed with muufti-ch-ljq, due to risk of fall CODE: DNAR, confirmed with bxqchm-fm-dfw DISPO: Admit to stroke, expected stay > 2 midnights Disposition/LOS: Kelly Guillory MD, PGY-3. Assessment and plan discussed with Dr. Caballero. Addendum - Attending - Attending Attestation Date/Time: 08/07/1830 I personally evaluated the patient and discussed the management with Dr. Guillory. I agree with the History, Examination, Assessment and Plan documented above with any addition or exceptions noted below. The patient presents with altered mental status and concern for possible stroke. She is resting in her bed but is unable to follow commands. Will get MRI and consult neurology. Consult therapy services. Cultures are pending to rule out infectious sources.
[2018-08-07] MEDS ORDERED: hydrALAZINE 20 MG/ML VIAL SLOW IVP PRN (17:26)
[2018-08-07] MEDS ORDERED: Labetalol HCl 100 MG/20 ML VIAL SLOW IVP PRN (17:28)
--- NOTE | 2018-08-07 20:09 | MRI ---
MRI OF BRAIN 08/07/18 PROVIDED CLINICAL HISTORY: Altered mental status. FINDINGS: The ventricular system appears normal in size and morphology. Evaluation is limited by patient motion . There is no evidence for intracranial hemorrhage. There is no evidence for restricted diffusion to suggest recent infarction. Chronic microvascular ischemic changes are seen. Appropriate flow voids ar e seen within the major intracranial vessels where visualized. Extracranial soft tissues and calvaria l marrow signal appear normal. IMPRESSION: Limited study without evidence for restricted diffusion to suggest recent infarction. POS: REMBERTOH
[2018-08-07] MEDS: Lactated Ringer's 1,000 ML IV SCH (20:38)
[2018-08-07 22:56] VITALS: BMI 13.8
[2018-08-08 05:58] LABS: #Lymphocytes 0.7 thou/uL (1.20-3.40); #Monocytes 0.6 thou/uL (0.11-0.59); #Neutrophils 4.5 thou/uL (1.40-6.50); %Basophils 0.3 % (0.0-1.0); %Eosinophils 0.4 % (0.0-10.0); %Lymphocytes 12.6 % (21.0-51.0); %Monocytes 10.6 % (0.0-10.0); Hemoglobin 10.6 g/dL (12.0-16.0); Mean Corpuscular HGB CONC 28.5 g/dL (32.0-36.0); Mean Corpuscular Hemoglobin 29.8 pg (27.0-31.0); Mean Platelet Volume 7.2 fL (7.4-10.4); Platelet Count 255 thou/uL (130-400); RBC Distribution Width 12.9 % (11.5-14.5); Red Blood Cell (RBC) Count 3.55 mill/uL (4.20-5.40); White Blood Cell (WBC) Count 5.9 thou/uL (4.8-10.8)
--- NOTE | 2018-08-08 06:21 | PDOC.FM ---
- Subjective Subjective: Daughter in room wonders what happened to patient. Notes she has not said any words. Does not follow commands. Has had no change since yesterday. - Objective MAR Reviewed: Yes Vital Signs & Weight: Vital Signs (12 hours) Temp Pulse Resp BP Pulse Ox 08/08/18 04:00 98.2 F 93 20 103/68 99 08/08/18 00:00 97.1 F L 97 19 134/57 L 100 08/07/18 20:00 97.9 F 104 H 20 154/75 H 97 Weight Weight 40.007 kg Result Diagrams: 08/08/18 05:12 08/08/18 05:12 Phys Exam - Physical Examination Respiratory: clear to auscultation bilateral Cardiovascular: RRR, no significant murmur Gastrointestinal: soft, non-tender, positive bowel sounds Musculoskeletal: no edema Neurological: moves all 4 limbs (intermittently nods/shakes head, moving all extremities, withdraws to pain in all extremities, babinski downgoing) Skin: normal turgor Dx/Plan (1) Encephalopathy acute Code(s): G93.40 - ENCEPHALOPATHY, UNSPECIFIED Status: Acute (2) Physical deconditioning Code(s): R53.81 - OTHER MALAISE Status: Acute (3) Dementia Code(s): F03.90 - UNSPECIFIED DEMENTIA WITHOUT BEHAVIORAL DISTURBANCE Status: Acute (4) COPD (chronic obstructive pulmonary disease) Status: Chronic (5) Depression Code(s): F32.9 - MAJOR DEPRESSIVE DISORDER, SINGLE EPISODE, UNSPECIFIED Status : Chronic (6) HTN (hypertension) Code(s): I10 - ESSENTIAL (PRIMARY) HYPERTENSION Status: Chronic Qualifiers: Hypertension type: essential hypertension Qualified Code(s): I10 - Essential (primary) hypertension - Plan Plan: 78 yo F here with AMS, encephalopathy concerning for acute stroke 1. Encephalopathy - Intermittently oriented x1 at baseline - CBC, CMP, lactic acid, UA, CXR all negative - CT brain negative - MRI brain negative for acute process - DDX includes acute stroke, TIA, metabolic encephalopathy, acute worsening of dementia - pending neurology consult - NPO - Presentation seems to be most likely due to worsening of dementia at this time. Will discuss with son today and consult palliative care. 2. Dementia - Advanced - Oriented x1 at baseline (which is intermittent) 3. Deconditioning 2/2 #2 and recent hospitalizations - PT/OT - ST consulted - May need placement upon discharge 4. COPD - Home inhalers - On nonrebreather for comfort as she gets agitated without O2 supplementation - No desatting and respiratory drive good 5. HTN - BP have been stable 6. Anxiety - Frequent panic attacks per iukohy-zi-fuh and home health - Will eval for appropriateness of treating on case by case basis 7. Depression - Home meds when able to tolerate PO PPX: None, which was discussed with pvuvsj-zq-gfs, due to risk of fall CODE: DNAR, confirmed with prvzhs-zv-cve Addendum - Attending - Attending Attestation Date/Time: 08/08/18 9139 I personally evaluated the patient and discussed the management with Dr. Bustillo. I agree with the History, Examination, Assessment and Plan documented above with any addition or exceptions noted below. MRI reviewed and was negative for acute stroke. Cultures are negative. Will discuss with the patient's son about finding and goals of care.
[2018-08-08 06:35] LABS: Anion Gap 15 mmol/L (10-20); BUN (Urea Nitrogen) 18 mg/dL (9.8-20.1); Calc. Creatinine Clearance 53 mL/min (70-130); Calcium 9.6 mg/dL (7.8-10.44); Carbon Dioxide 36 mmol/L (23-31); Chloride 96 mmol/L (98-107); Estimated GFR-MDRD Greater than 90; Glucose 90 mg/dL (83-110); Potassium 4.5 mmol/L (3.5-5.1); Sodium 142 mmol/L (136-145)
[2018-08-08] MEDS: Lactated Ringer's 1,000 ML IV SCH ×3 (06:52→21:56)
[2018-08-08 10:52] LABS: Folate (Folic Acid) 14.3 ng/mL (7.0-31.4)
[2018-08-08] MEDS ORDERED: Aspirin 300 MG Suppository PR SCH (21:00)
--- NOTE | 2018-08-09 01:13 | CON ---
DATE OF CONSULTATION: 08/08/2018 CONSULTING PHYSICIAN: Hospitalist Service. IMPRESSION: Acute neurologic decline with a lack of speech and no evidence of ischemic change on MRI. It is possible that she may be having subclinical seizures. PLAN: EEG. HISTORY OF PRESENT ILLNESS: Ms. Carranza is a 78-year-old black female, lives at home with assistance. She has a history of dementia and physical decline. She was still able to communicate and carry on conversations. As a baseline, she can assist in her bathing and could feed herself. Her caregiver noted that she suddenly started listing to the side of bed and was drooling. She quit talking and they could not get her to cooperate and brought her to the hospital for evaluation. She initially had a CT scan of the brain, which only showed some age-related changes. Followup MRI of the brain done yesterday revealed no acute changes, but there was evidence of chronic microvascular disease. Her laboratory studies included a CBC, serum chemistry, and urinalysis with no significant problems found. She has failed to regain the ability to speak. She has been afebrile since admission. PAST MEDICAL HISTORY: COPD, hypertension, depression, hyperkalemia, osteoporosis, physical deconditioning. FAMILY HISTORY: Not obtainable. ALLERGIES: NONE REPORTED. MEDICATIONS: Medication list included, 1. Aspirin. 2. Alprazolam. 3. Normodyne. 4. She was started on IV fluids. SOCIAL HISTORY: No tobacco or alcohol use. REVIEW OF SYSTEMS: Not obtainable due to her mute state. PHYSICAL EXAMINATION: GENERAL: She is a thin, elderly lady, sitting up in the bed with her eyes only partially opened. VITAL SIGNS: Blood pressure 158/65, pulse 95, respirations 18, and temperature 98. HEENT: Pupils are equal. Conjunctivae are clear. Cranium; normocephalic, atraumatic. NECK: No lymphadenopathy noted. EXTREMITIES: No cyanosis or edema noted. NEUROLOGIC: She would open her eyes to stimulation that were remained mute. Cranial nerves were grossly intact. Motor exam showed symmetric tone. There was some tremor present in both upper extremities. Sensory testing was grossly intact to light touch. Gait is not testable. DATA: Laboratory studies were reviewed. Imaging was reviewed. SUMMARY: This is an elderly lady with dementia who has had abrupt change and no evidence of structural etiology. Her lab work appears unremarkable as well. It is possible that she may have subclinical seizures. We can hopefully address that to get her back to her baseline. Job ID: [id number]
--- NOTE | 2018-08-09 06:12 | PDOC.FM ---
- Subjective Subjective: Ms. Carranza is unchanged in function since yesterday. Will not follow commands, responds to pain, does not track with eyes. Overnight pt had episode of breathing difficulty. Daughter in law notes this happens at home a times as well. On O2, and pt's agitation improved with fan. No difficulty this morning. In conversations with son yesterday, plan to go home with hospice at time of discharge. - Objective MAR Reviewed: Yes Vital Signs & Weight: Vital Signs (12 hours) Temp Pulse Resp BP Pulse Ox 08/09/18 04:00 96.8 F L 97 19 151/86 H 100 08/09/18 00:00 97.6 F 85 20 107/73 99 08/08/18 21:00 100 08/08/18 20:00 97.0 F L 95 19 103/63 100 Weight Admit Weight 40.007 kg Weight 40.007 kg Result Diagrams: 08/08/18 05:12 08/08/18 05:12 Phys Exam - Physical Examination Constitutional: NAD Respiratory: clear to auscultation bilateral Cardiovascular: RRR, no significant murmur Gastrointestinal: soft, no distention, positive bowel sounds Musculoskeletal: no edema Neurological: moves all 4 limbs does not respond to commands, no eye tracking, responds to pain, mumbles Skin: cap refill <2 seconds Dx/Plan (1) Encephalopathy acute Code(s): G93.40 - ENCEPHALOPATHY, UNSPECIFIED Status: Acute (2) Physical deconditioning Code(s): R53.81 - OTHER MALAISE Status: Acute (3) Dementia Code(s): F03.90 - UNSPECIFIED DEMENTIA WITHOUT BEHAVIORAL DISTURBANCE Status: Acute (4) COPD (chronic obstructive pulmonary disease) Status: Chronic (5) Depression Code(s): F32.9 - MAJOR DEPRESSIVE DISORDER, SINGLE EPISODE, UNSPECIFIED Status : Chronic (6) HTN (hypertension) Code(s): I10 - ESSENTIAL (PRIMARY) HYPERTENSION Status: Chronic Qualifiers: Hypertension type: essential hypertension Qualified Code(s): I10 - Essential (primary) hypertension - Plan Plan: 78 yo F here with AMS, encephalopathy concerning for acute stroke 1. Encephalopathy - Intermittently oriented x1 at baseline - CT brain negative - MRI brain negative for acute process - Palliative care consulted. Spoke with family and plan to transition to home with hospice - Neurology consulted, saw pt last night and plans for EEG today to evaluate for subclinical seizures 2. Dementia - Advanced, possible worsening - Oriented x1 at baseline (which is intermittent) 3. Deconditioning 2/2 #2 and recent hospitalizations - PT/OT - ST consulted - NPO 4. COPD - Home inhalers - No desatting and respiratory drive good - NC, fan for comfort 5. HTN - BP have been stable 6. Anxiety - Frequent panic attacks per utudqw-da-yeo and home health - Will eval for appropriateness of treating on case by case basis 7. Depression - Home meds when able to tolerate PO PPX: None, which was discussed with [id number]-[id number], due to risk of fall CODE: DNAR, confirmed with [id number] Dispo: Likely home with hospice pending EEG Addendum - Attending - Attending Attestation Date/Time: 08/09/18 1742 I personally evaluated the patient and discussed the management with Dr. Bustillo. I agree with the History, Examination, Assessment and Plan documented above with any addition or exceptions noted below. The patient is resting comfortably this morning after fan was obtained. She was seen by neurology who has ordered an eeg. Hospice is being arranged for the patient. Anticipate discharge soon.
[2018-08-09] MEDS: Lactated Ringer's 1,000 ML IV SCH (06:35)
--- NOTE | 2018-08-09 15:20 | PRG ---
DATE OF SERVICE: 08/09/2018 FOLLOWUP NOTE Ms. Carranza remains from unresponsive. She had a quiet night without any particular problems other than appearing to be a bit more short of breath. Her vital signs remain stable and afebrile. She is sitting up in the bed, breathing a bit labored. She keeps her eyes closed and remains unresponsive from a verbal perspective. Her tone is symmetric. EEG is pending at this point. If the EEG does not show any significant findings suggestive of subclinical seizures, I suspected that she is essentially dying and there is nothing much more that can be done. Job ID: [id number]
[2018-08-09 15:35] VITALS: BP 144/83; TEMP 97.7
--- NOTE | 2018-08-09 17:12 | PQF ---
TOMMY CEJA Paige *r [id number] [facility] – [place]-211 [id number] CLINICAL DOCUMENTATION IMPROVEMENT CLARIFICATION FORM: ICD-10 Updated PLEASE DO AN ADDENDUM TO THE PROGRESS NOTE WITH ANY DOCUMENTATION UPDATES OR ADDITIONS AND CARRY THROUGH TO DC SUMMARY. THANK YOU. Date: 08/09/2018 ATTN: DR. ROSE Please exercise your independent, professional judgment in responding to the clarification form. Clinical indicators are provided on the bottom of this form for your review Please check appropriate box(s): [ ] Protein Calorie Malnutrition: [ ] Mild [ ] Moderate [ ] Severe [ ] Other Malnutrition (please specify) __ [ ] Underweight without malnutrition [ ] Cachexia [ ] Other diagnosis [ x ] Unable to determine In addition, please specify: Present on Admission (POA): [ x ] Yes [ ] No [ ] Unable to determine CLINICAL INDICATORS - SIGNS / SYMPTOMS / LABS 08/08 Nutrition Assessment: BMI=13.8 based upon height 5'7" and weight 85- lbs. Inability to consume sufficient energy. History of dementia On tube feeds and NPO during this hospitalization Suboptial oral intake 08/08 Physical Therapy Assessment: Decreased functional mobility and decreased cognition. At least 3-/5 overall gross strength observed. ER Nursing Assessment: 2+ pitting pedal edema bilateral. RISK FACTORS Inability to consume adequate caloric intake Chronic illness Dementia and currently encephalopathic/change from baseline mental status Unable to follow commands PEG tube TREATMENT: Dietary consult Nutritional supplements TPN / tube feedings Assistance with feeding Moderate Malnutrition (in acute illness) [employer] Winform ViewerEnergy Intake: <75% of estimated energy requirement for > 7 days Weight Loss: 1-2%/1 week; 5%/ 1 month; 7.5%/3 months Other: mild body fat loss; mild muscle mass loss; mild fluid accumulation; Severe Malnutrition (in acute illness) Energy Intake: < 50% of estimated energy requirement for > 5 days Weight Loss: >1-2%/1 week; >5%/1 month; >7.5%/3 months Other: moderate body fat loss; moderate muscle mass loss; moderate- severe fluid accumulation; measurably reduced director oncology strength Moderate Malnutrition (in chronic illness) Energy Intake: <75% of estimated energy requirement for >1 month Weight Loss: 5%/1 month; 7.5%/3 months; 10%/6 months; 20%/1 year Other: mild body fat loss; mild muscle mass loss; mild fluid accumulation Severe Malnutrition (in chronic illness) Energy Intake: <75% of estimated energy requirement for >1 month Weight Loss: >5%/1 month; >7.5%/3 months; >10%/6 months; >20%/1 year Other: severe body fat loss; severe muscle mass loss; severe fluid accumulation ; measurably reduced director oncology strength Thank you, Lavonne (This form is maintained as a part of the permanent medical record) 2015 [email or web address]. All Rights Reserved Lavonne Hodge RN, CDIS [email or web address] [phone] [email or web address]
--- NOTE | 2018-08-09 17:27 | PQF ---
TOMMY CEJA Paige *r [id number] CLINICAL DOCUMENTATION IMPROVEMENT CLARIFICATION FORM: ICD-10 Updated PLEASE DO AN ADDENDUM TO THE PROGRESS NOTE WITH ANY DOCUMENTATION UPDATES OR ADDITIONS AND CARRY THROUGH TO DC SUMMARY. THANK YOU. DATE: 08/09/2018 ATTN: DR. ROSE Please exercise your independent, professional judgment in responding to the clarification form. Clinical indicators are provided on the bottom of this form for your review Please check appropriate box(s): [ ] Acute Respiratory Failure: [ ] with Hypoxia[ ] with Hypercapnia [ x ] Acute On Chronic Respiratory Failure: [ ] with Hypoxia [ ] with Hypercapnia [ ] Chronic Respiratory Failure only [ ] with Hypoxia [ ] with Hypercapnia [ ] Hypoxia [ ] Other diagnosis [ ] Unable to determine For continuity of documentation, please document condition throughout progress notes and discharge summary. Thank You. CLINICAL INDICATORS - SIGNS / SYMPTOMS / LABS ER Nursing Assessment also states 2+pitting pedal edeam bilateral. Respiratory effort, teachypneic. Breath sounds diminished to bilateral upper lobes, to bilateral lower lobes. ER Nursing Note states: NANCY Sánchez reports patients O2 sat 51% on RA. This was first time for this nurse to receive notification of patients O2 sat low. Patients [id number] reports she has notified Multiple people, but this nurse was not informed. Patient now 100% on NRB. ER Physician Exam: Rhonchi present to the left upper lobe, to the left lower lobe. 08/07 Progress Note: On nonrebreather for comfort as she gets agitated without O2 supplementation. Being treated for her COPD with Duonebs, methylprednisolone, and O2 support prn per H&P. 08/08 PT Assessment: Decreased functional mobility and decreased cognition Also includes chronic resp fail on home O2 RISK FACTORS 08/08 PT Assessment: Decreased functional mobility and decreased cognition 10 PT Assessment: Chronic respiratory failure on home O2. TREATMENTS: Oxygen Monitoring of oxygenation status Mechanical ventilation / BiPAP Respiratory treatments Thank you, Lavonne (This form is maintained as a part of the permanent medical record) 2014 [employer] All Rights Reserved Lavonne Hodge RN, CDIS [email or web address] [phone] [facility]
--- NOTE | 2018-08-12 13:27 | EEG ---
Referring Physician: Manan ROSARIO EEG # 19-11 TEST TYPE: ROUTINE PORTABLE INPATIENT REPORT: AN EEG USING THE [place] TEN-TWENTY SYSTEM OF ELECTRODE PLACEMENT WAS PERFORMED. The waking background is fairly symmetric with diffuse slowing in the Theta range over both hemispheres. It is relatively high amplitude. There is some sharp activity associated with it intermittently. No definite epileptiform features were seen. No sleep was seen. Photic stimulation was unremarkable. IMPRESSION: THIS IS AN ABNORMAL STUDY FOR THE FINDINGS OF DIFFUSE SLOWING CONSISTENT WITH A DIFFUSE ENCEPHALOPATHIC PROCESS. Chief Quality Officer: AN[facility] Consultant: EEG.RUTH AMARAL
== END 2018-08-09 18:45 | disposition hospice, home (50) | DRG 70 ==
LOC: ERS 07:08 → ERHOLD 09:00 → 2SE 19:55
PROVIDERS: ADMIT Family Medicine; ATTEND Family Medicine
DX: G93.40 Encephalopathy, unspecified (principal); J96.20 Acute and chronic respiratory failure, unspecified whether with hypoxia or hypercapnia; F41.9 Anxiety disorder, unspecified; F03.90 Unspecified dementia, unspecified severity, without behavioral disturbance, psychotic disturbance, mood disturbance, and anxiety; J44.9 Chronic obstructive pulmonary disease, unspecified; F32.9 Major depressive disorder, single episode, unspecified; I10 Essential (primary) hypertension; E78.5 Hyperlipidemia, unspecified
CPT/HCPCS: 36415; 51701; 70450; 70551; 71045; 80048; 80053; 80061; 81003; 81015; 82140; 82533; 82550; 82607; 82746; 83605; 84443; 84484; 85025; 87040; 87086; 93005; 95816; 95819; 96360; 96361; A4353